=== PATIENT | female | born 1990 | race Hispanic/Latino ===

== ENCOUNTER 2017-10-03 00:23 | Emergency (ER) | payer BC, OTHER ==
--- OUTSIDE RECORDS SUMMARY | 2017-10-03 00:25 | XMS REPORT | Clinical Summary ---
:1990 Author Organization [facility] Address [address] [place] [id number] Care Team Providers Name Role Phone Elena Dan MD Primary Care Provider Allergies Active Allergy Reactions Severity Noted Date Comments No Known Drug Allergies 10/26/2015 Current Medications Prescription Sig. Disp. Refills Start Date End Date Status Take 1 tablet by Active nsshnuzz-Yw-[id number]-Fe-FA mouth daily. tablet pantoprazole (PROTONIX) TK 1 T PO D 0 09/17/2016 Active 40 MG EC tablet ondansetron (ZOFRAN) 4 MG TK 1 T PO Q 8 H PRN 0 09/17/2016 Active tablet NV Active Problems Problem Noted Date Gastroesophageal reflux disease without esophagitis 09/21/2016 Viral URI with cough 09/21/2016 H/O abnormal cervical Papanicolaou smear Encounters Date Type Specialty Care Team Description 11/20/2016 Telephone Internal Medicine Elena Dan MD 10/16/2016 Telephone Internal Medicine Elena Dan Encounter for insertion of intrauterine contraceptive device (Primary Dx); MD Paul Encounter for contraceptive management, unspecified contraceptive encounter type after 10/02/2016 Family History Medical History Relation Name Comments No Known Problems Father No Known Problems Mother Relation Name Status Comments Father Mother Social History Tobacco Use Types Packs/Day Years Used Date Never Smoker Smokeless Tobacco: Never Used Tobacco Cessation: Counseling Given: No Alcohol Use Drinks/Week oz/Week Comments Yes ocassional; 1 drink monthly or every other month Sex Assigned at Date Recorded Not on file Last Filed Vital Signs Not on file Plan of Treatment Health Maintenance Due Date Last Done Comments PAP SMEAR 2011 INFLUENZA VACCINE 01/15/2018 Results Not on fileafter 10/02/2016 Insurance Payer Benefit Plan / Group Subscriber ID Type Phone Address [facility] Home: [address] [place], [place] [phone] [place] [id number]
[2017-10-03 01:21] LABS: Urine Blood 1+ (NEG); Urine Glucose NEGATIVE (NEG); Urine Protein NEGATIVE (NEG)
[2017-10-03 01:27] LABS: Urine Bacteria <20 /HPF (<20); Urine Culture Reflex Order NOT NEEDED; Urine RBC <5 /HPF (NONE SEEN)
--- NOTE | 2017-10-03 02:17 | ER ---
Nurse's Notes [facility] Name: Ramiro Tracy Age: 27 yrs Sex: Female : 1990 Arrival Date: 10/03/2017 Time: 00:24 Bed 16 Private MD: out of town, doctor Diagnosis: Dysuria;Cystitis Presentation: 10/03 00:42 Presenting complaint: Patient states: that she is having burning and pain with fc urination that started Tu night.. Also headache since Saturday. Denies any nausea or vomiting. Transition of care: patient was not received from another setting of care. Onset of symptoms was September 29, 2017. Initial Sepsis Screen: Does the patient meet any 2 criteria? No. Patient's initial sepsis screen is negative. Does the patient have a suspected source of infection? No. Patient's initial sepsis screen is negative. Care prior to arrival: None. 00:42 Method Of Arrival: Ambulatory fc 00:42 Acuity: CASA 4 Triage Assessment: 00:46 General: Appears comfortable, Behavior is calm, cooperative, appropriate for age. Pain: Complains of pain in meatus Pain currently is 2 out of 10 on a pain scale. at worst was 5 out of 10 on a pain scale. Quality of pain is described as burning, Pain began 1 day ago. Is continuous, Aggravated by urinating. EENT: No deficits noted. Neuro: Level of Consciousness is awake, alert, obeys commands, Oriented to person, place, time, situation, Coding And Reimbursement Specialist are equal bilaterally Moves all extremities. Full function Gait is steady, Speech is normal, Facial symmetry appears normal, Reports headache frontal area. Cardiovascular: No deficits noted. Respiratory: No deficits noted. GI: No deficits noted. : Reports burning with urination, pain with urination, urinary frequency. Derm: Skin is pink, warm \T\ dry. Musculoskeletal: Circulation, motion, and sensation intact. Capillary refill < 3 seconds, Range of motion: intact in all extremities. 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 - Social history:: Smoking status: Patient/guardian denies using tobacco, Patient uses alcohol, occasionally. Screenin:46 Abuse screen: Denies threats or abuse. Nutritional screening: No deficits noted. Tuberculosis screening: No symptoms or risk factors identified. Fall Risk None identified. Assessment: 01:10 General: Appears in no apparent distress. Behavior is calm, cooperative. Pain: bb Complains of pain in suprapubic area. Neuro: Level of Consciousness is awake, alert, obeys commands, Oriented to person, place, time, situation. Cardiovascular: No deficits noted. Respiratory: Respiratory effort is even, unlabored. GI: Abdomen is obese, Reports lower abdominal pain. : Reports burning with urination. Derm: Skin is pink, warm \T\ dry. Musculoskeletal: Circulation, motion, and sensation intact. 02:37 Reassessment: Patient and/or family updated on plan of care and expected duration. Pain bb level reassessed. Patient is alert, oriented x 3, equal unlabored respirations, skin warm/dry/pink. pt verbalized understanding of and agrees to plan of care discharge instructions given pt ambulated with steady gait to exit accompanied by spouse. Vital Signs: 00:48 BP 136 / 91; Pulse 98; Resp 18; Temp 98.6(O); Pulse Ox 98% on R/A; Weight 82.55 kg (R); fc Height 5 ft. 0 in. (152.40 cm) (R); Pain 2/10; 02:38 BP 125 / 80; Pulse 72; Resp 16 S; Temp 98.5(O); Pulse Ox 98% on R/A; bb 00:48 Body Mass Index 35.54 (82.55 kg, 152.40 cm) ED Course: 00:24 Patient arrived in ED. ds1 00:24 out of town, doctor is Private Physician. ds1 00:45 Triage completed. 00:45 Arm band placed on Patient placed in an exam room, on a stretcher. 00:46 Patient has correct armband on for positive identification. Bed in low position. Call light in reach. 01:21 Neyda Salgado RN is Primary Nurse. bb 01:25 David Bashir MD is Attending Physician. gs 02:39 No provider procedures requiring assistance completed. Patient did not have IV access bb during this emergency room visit. Administered Medications: 02:37 Drug: Pyridium 200 mg Route: PO; teresa 02:37 Follow up: Response: Medication administered at discharge. teresa Outcome: 02:17 Discharge ordered by . irma 02:39 Discharged to home ambulatory, with family. teresa 02:39 Condition: stable 02:39 Discharge instructions given to patient, Instructed on discharge instructions, follow up and referral plans. medication usage, Demonstrated understanding of instructions, follow-up care, medications, Prescriptions given X 2. 02:39 Patient left the ED. bb Addendum: 10/11/2017 11:54 Addendum: Culture Results: Positive urine culture. Bacteria is resistant to, has i w intermediate sensitivity, or is not tested against prescribed antibiotics. Report given to LO for further evaluation and then to veterans services specialist for follow up with patient. Phone call Attempt #1 pt did not answer, left voice mail. 12:20 Addendum: Culture Results: Phone call Attempt #2 pt called back, asymptomatic for UTI i w symptoms. Signatures: Gin Figueredo RN RN fc Sanford, Demi ds1 Neyda Salgado RN RN Sabi Mohamud RN RN iw Starr, Gregory, MD MD gs
--- NOTE | 2017-10-03 02:17 | EDPHYS ---
Physician Documentation [facility] Name: Ramiro Tracy Age: 27 yrs Sex: Female : 1990 Arrival Date: 10/03/2017 Time: 00:24 Bed 16 Private MD: out of town, doctor ED Physician David Bashir HPI: 10/03 02:43 This 27 yrs old Female presents to ER via Ambulatory with complaints of Pain gs With Urination. 02:43 The patient presents with urinary symptoms, dysuria. Onset: The symptoms/episode gs began/occurred 2 day(s) ago, and became persistent. Modifying factors: The symptoms are alleviated by nothing, the symptoms are aggravated by nothing. Associated signs and symptoms: Pertinent negatives: fever, hematuria. Severity of symptoms: At their worst the symptoms were moderate, in the emergency department the symptoms are unchanged. The patient has not experienced similar symptoms in the past. 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 - Social history:: Smoking status: Patient/guardian denies using tobacco, Patient uses alcohol, occasionally. ROS: 02:43 : Negative for vaginal discharge. gs 02:43 All other systems are negative. Exam: 02:43 Head/Face: Normocephalic, atraumatic. Eyes: Pupils equal round and reactive to light, gs extra-ocular motions intact. Lids and lashes normal. Conjunctiva and sclera are non-icteric and not injected. Cornea within normal limits. Periorbital areas with no swelling, redness, or edema. ENT: Nares patent. No nasal discharge, no septal abnormalities noted. Tympanic membranes are normal and external auditory canals are clear. Oropharynx with no redness, swelling, or masses, exudates, or evidence of obstruction, uvula midline. Mucous membranes moist. Neck: Trachea midline, no thyromegaly or masses palpated, and no cervical lymphadenopathy. Supple, full range of motion without nuchal rigidity, or vertebral point tenderness. No Meningismus. Chest/axilla: Normal chest wall appearance and motion. Nontender with no deformity. No lesions are appreciated. Cardiovascular: Regular rate and rhythm with a normal S1 and S2. No gallops, murmurs, or rubs. Normal PMI, no JVD. No pulse deficits. Respiratory: Lungs have equal breath sounds bilaterally, clear to auscultation and percussion. No rales, rhonchi or wheezes noted. No increased work of breathing, no retractions or nasal flaring. Abdomen/GI: Soft, non-tender, with normal bowel sounds. No distension or tympany. No guarding or rebound. No evidence of tenderness throughout. Back: No spinal tenderness. No costovertebral tenderness. Full range of motion. Skin: Warm, dry with normal turgor. Normal color with no rashes, no lesions, and no evidence of cellulitis. MS/ Extremity: Pulses equal, no cyanosis. Neurovascular intact. Full, normal range of motion. Neuro: Awake and alert, GCS 15, oriented to person, place, time, and situation. Cranial nerves II-XII grossly intact. Motor strength 5/5 in all extremities. Sensory grossly intact. Cerebellar exam normal. Normal gait. 02:43 Constitutional: The patient appears alert, awake. Vital Signs: 00:48 BP 136 / 91; Pulse 98; Resp 18; Temp 98.6(O); Pulse Ox 98% on R/A; Weight 82.55 kg (R); fc Height 5 ft. 0 in. (152.40 cm) (R); Pain 2/10; 02:38 BP 125 / 80; Pulse 72; Resp 16 S; Temp 98.5(O); Pulse Ox 98% on R/A; bb 00:48 Body Mass Index 35.54 (82.55 kg, 152.40 cm) MDM: 02:10 Patient medically screened. 02:43 Differential diagnosis: urinary tract infection. Data reviewed: vital signs, nurses gs notes. 02:45 ED course: WILL TREAT FOR CYSTITIS AWAIT CULTURE PT IS SYMPTOMATIC + LE ON URINE DIP. 10/03 01:01 Order name: Urine Microscopic Only; Complete Time: 02:16 [facility] 10/03 01:01 Order name: Urine Dipstick--Ancillary (enter results); Complete Time: 01:25 [facility] 10/03 01:01 Order name: Urine --Ancillary (enter results); Complete Time: 01:25 rg2 10/03 01:02 Order name: Urine Culture rg Administered Medications: 02:37 Drug: Pyridium 200 mg Route: PO; teresa 02:37 Follow up: Response: Medication administered at discharge. teresa Disposition: 10/03/17 02:17 Discharged to Home. Impression: Dysuria, Cystitis. - Condition is Stable. - Discharge Instructions: Dysuria, Urinary Tract Infection. - Prescriptions for Macrobid 100 mg Oral Capsule - take 1 capsule by ORAL route every 12 hours for 5 days; 10 capsule. Pyridium 200 mg Oral Tablet - take 1 tablet by ORAL route every 8 hours for 2 days; 5 tablet. - Medication Reconciliation Form, Thank You Letter, Antibiotic Education, Prescription Opioid Use form. - Follow up: Private Physician; When: 1 - 2 days; Reason: Re-evaluation by your physician. Signatures: Dispatcher [employer] EDGin Garcia RN RN fc Ballard, Brenda, RN RN bb Starr, Gregory, MD MD
[2017-10-03] MEDS ORDERED: PHENAZOPYRIDINE 100MG TAB PO ONE (02:31)
== END 2017-10-03 02:39 | disposition home or self-care (01) ==
LOC: ER 00:23
DX: N30.90 Cystitis, unspecified without hematuria (principal)
CPT/HCPCS: 81003; 81015; 81025; 87077; 87086; 87088; 87186; 99283

== ENCOUNTER 2017-11-18 18:14 | Emergency (ER) | payer OTHER, BC ==
--- OUTSIDE RECORDS SUMMARY | 2017-11-18 18:16 | XMS REPORT | Clinical Summary ---
:1990 Author Organization [facility] Address [address] [place] [id number] Care Team Providers Name Role Phone Elena Dan MD Primary Care Provider Allergies Active Allergy Reactions Severity Noted Date Comments No Known Drug Allergies 10/26/2015 Current Medications Prescription Sig. Disp. Refills Start Date End Date Status Take 1 tablet by Active ovlnjsei-Ov-qde-Fe-FA mouth daily. tablet pantoprazole (PROTONIX) TK 1 [...] 11/20/2016 Telephone Internal Medicine Elena Dan MD after 11/17/2016 Family History Medical History Relation Name Comments [...] Health Maintenance Due Date Last Done Comments CERVICAL CANCER SCREENING 2011 INFLUENZA VACCINE 01/15/2018 Results Not on fileafter 11/17/2016 Insurance Payer Benefit Plan / Group Subscriber ID Type Phone Address [facility] [phone] [place], [place] [id number]
--- NOTE | 2017-11-18 21:15 | EDPHYS ---
Physician Documentation [facility] Name: Ramiro Tracy Age: 27 yrs Sex: Female : 1990 Arrival Date: 11/18/2017 Time: 18:17 Bed 28 Private MD: out of town, doctor ED Physician Aren Douglas HPI: 11/18 21:00 This 27 yrs old Female presents to ER via Ambulatory with complaints of Hand pm1 Swelling, Feet Swelling. 21:00 Onset: The symptoms/episode began/occurred 2 month(s) ago. Associated signs and pm1 symptoms: Pertinent negatives: cyanosis distally, decreased sensation distally, fever. The patient has not recently seen a physician. Patient with complaints of bilateral lower extremity swelling and hand swelling for the past 2 months. Swelling is worse with prolonged standing and eating salty foods. Patient without any current swelling to any extremities. No chest pain or shortness of breath. 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 - Social history:: Smoking status: Patient/guardian denies using tobacco. - Ebola Screening: : No symptoms or risks identified at this time. ROS: 21:00 Constitutional: Negative for fever, chills, and weight loss, Eyes: Negative for injury, pm1 pain, redness, and discharge, ENT: Negative for injury, pain, and discharge, Neck: Negative for injury, pain, and swelling, Cardiovascular: Negative for chest pain, palpitations, and edema, Respiratory: Negative for shortness of breath, cough, wheezing, and pleuritic chest pain, Abdomen/GI: Negative for abdominal pain, nausea, vomiting, diarrhea, and constipation, Back: Negative for injury and pain, : Negative for injury, bleeding, discharge, and swelling. 21:00 Skin: Negative for injury, rash, and discoloration, Neuro: Negative for headache, weakness, numbness, tingling, and seizure. 21:00 MS/extremity: Positive for swelling, of the right hand, left hand, right foot and left foot. Exam: 21:00 Constitutional: This is a well developed, well nourished patient who is awake, alert, pm1 and in no acute distress. Head/Face: Normocephalic, atraumatic. Eyes: Pupils equal round and reactive to light, extra-ocular motions intact. Lids and lashes normal. Conjunctiva and sclera are non-icteric and not injected. Cornea within normal limits. Periorbital areas with no swelling, redness, or edema. ENT: Nares patent. No nasal discharge, no septal abnormalities noted. Tympanic membranes are normal and external auditory canals are clear. Oropharynx with no redness, swelling, or masses, exudates, or evidence of obstruction, uvula midline. Mucous membranes moist. Neck: Trachea midline, no thyromegaly or masses palpated, and no cervical lymphadenopathy. Supple, full range of motion without nuchal rigidity, or vertebral point tenderness. No Meningismus. Chest/axilla: Normal chest wall appearance and motion. Nontender with no deformity. No lesions are appreciated. Cardiovascular: Regular rate and rhythm with a normal S1 and S2. No gallops, murmurs, or rubs. Normal PMI, no JVD. No pulse deficits. Respiratory: Lungs have equal breath sounds bilaterally, clear to auscultation and percussion. No rales, rhonchi or wheezes noted. No increased work of breathing, no retractions or nasal flaring. Abdomen/GI: Soft, non-tender, with normal bowel sounds. No distension or tympany. No guarding or rebound. No evidence of tenderness throughout. Back: No spinal tenderness. No costovertebral tenderness. Full range of motion. Skin: Warm, dry with normal turgor. Normal color with no rashes, no lesions, and no evidence of cellulitis. MS/ Extremity: Pulses equal, no cyanosis. Neurovascular intact. Full, normal range of motion. 21:00 Neuro: Orientation: is normal, Motor: is normal, moves all fours. Vital Signs: 18:56 BP 139 / 92; Pulse 87; Resp 18 S; Temp 98.9(TE); Pulse Ox 100% on R/A; Weight 84.37 kg aa5 (R); Height 5 ft. 0 in. (152.40 cm) (R); Pain 2/10; 21:34 BP 119 / 78; Pulse 90; Resp 18; Pulse Ox 100% ; tl3 18:56 Body Mass Index 36.33 (84.37 kg, 152.40 cm) aa5 MDM: 20:34 Patient medically screened. pm1 21:10 Differential diagnosis: DVT, PE, CHF, Dependent edema. pm1 21:13 Data reviewed: vital signs. Data interpreted: Pulse oximetry: on room air is 100 %. pm1 Interpretation: normal. Counseling: I had a detailed discussion with the patient and/or guardian regarding: the historical points, exam findings, and any diagnostic results supporting the discharge/admit diagnosis, the need for outpatient follow up, to return to the emergency department if symptoms worsen or persist or if there are any questions or concerns that arise at home. 11/18 20:58 Order name: Urine Dipstick--Ancillary (enter results) [facility] 11/18 20:58 Order name: Urine --Ancillary (enter results) [facility] 11/18 20:58 Order name: Urine Dipstick-Ancillary EDMS 11/18 20:58 Order name: Urine --Ancillary EDMS Administered Medications: No medications were administered Disposition: 11/19 06:30 Co-signature as Attending Physician, Aren Douglas MD I agree with the assessment and tw4 plan of care. Disposition: 11/18/17 21:14 Discharged to Home. Impression: Edema, unspecified - dependent. - Condition is Stable. - Discharge Instructions: Edema. - Medication Reconciliation Form, Thank You Letter form. - Follow up: Emergency Department; When: As needed; Reason: Worsening of condition. Follow up: Private Physician; When: 2 - 3 days; Reason: Recheck today's complaints, Continuance of care, Re-evaluation by your physician. - Problem is new. - Symptoms have improved. Signatures: Dispatcher [employer] EDMS Jordana Aquino, RN RN aa5 Daniel Ordonez, FILLING AND PACKING SUPERVISOR FILLING AND PACKING SUPERVISOR pm1 Aren Douglas MD MD tw4 Susie Walker RN RN tl3 Corrections: (The following items were deleted from the chart) 11/18 21:37 21:14 11/18/2017 21:14 Discharged to Home. Impression: Edema, unspecified - dependent. tl3 Condition is Stable. Forms are Medication Reconciliation Form, Thank You Letter, Antibiotic Education, Prescription Opioid Use. Follow up: Emergency Department; When: As needed; Reason: Worsening of condition. Follow up: Private Physician; When: 2 - 3 days; Reason: Recheck today's complaints, Continuance of care, Re-evaluation by your physician. Problem is new. Symptoms have improved. pm1
--- NOTE | 2017-11-18 21:15 | ER ---
Nurse's Notes [facility] Name: Ramiro Tracy Age: 27 yrs Sex: Female : 1990 Arrival Date: 11/18/2017 Time: 18:17 Bed 28 Private MD: out of town, doctor Diagnosis: Edema, unspecified-dependent Presentation: 11/18 18:54 Presenting complaint: Patient states: intermittent swelling to renetta hands and renetta lower aa5 extremities that began 2 months ago. Pt states "I do have a little bit of pain on my right calf and my left arm". Transition of care: patient was not received from another setting of care. Onset of symptoms was 2017. Risk Assessment: Do you want to hurt yourself or someone else? Patient reports no desire to harm self or others. Initial Sepsis Screen: Does the patient meet any 2 criteria? No. Patient's initial sepsis screen is negative. Does the patient have a suspected source of infection? No. Patient's initial sepsis screen is negative. Care prior to arrival: None. 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 - Social history:: Smoking status: Patient/guardian denies using tobacco. - Ebola Screening: : No symptoms or risks identified at this time. Screenin:49 Abuse screen: Denies threats or abuse. Nutritional screening: No deficits noted. tl3 Tuberculosis screening: No symptoms or risk factors identified. Fall Risk None identified. Assessment: 20:49 General: Appears in no apparent distress. comfortable, well groomed, well developed, tl3 well nourished, Behavior is calm, cooperative, appropriate for age, quiet. Pain: Denies pain. Neuro: Level of Consciousness is awake, alert, obeys commands, Oriented to person, place, time, situation, Appropriate for age. Cardiovascular: No deficits noted. Denies chest pain, fatigue, nausea, shortness of breath, Patient's skin is warm and dry. Respiratory: Airway is patent Respiratory effort is even, unlabored, Respiratory pattern is regular, symmetrical. GI: No deficits noted. No signs and/or symptoms were reported involving the gastrointestinal system. : No deficits noted. No signs and/or symptoms were reported regarding the genitourinary system. EENT: No deficits noted. No signs and/or symptoms were reported regarding the EENT system. Derm: No deficits noted. No signs and/or symptoms reported regarding the dermatologic system. Musculoskeletal: No deficits noted. No signs and/or symptoms reported regarding the musculoskeletal system. 20:52 General: pt reports left hand and foot swelling for the last 2 months, a "tiny" pain in tl3 the right calf and left arm, not pin pricks, not achy, just a "tiny" pain. Did have an episode of dizziness last night when quickly changing position from lying to standing . 21:34 Reassessment: Patient appears in no apparent distress at this time. No changes from tl3 previously documented assessment. Patient and/or family updated on plan of care and expected duration. Pain level reassessed. Patient is alert, oriented x 3, equal unlabored respirations, skin warm/dry/pink. Vital Signs: 18:56 BP 139 / 92; Pulse 87; Resp 18 S; Temp 98.9(TE); Pulse Ox 100% on R/A; Weight 84.37 kg aa5 (R); Height 5 ft. 0 in. (152.40 cm) (R); Pain 2/10; 21:34 BP 119 / 78; Pulse 90; Resp 18; Pulse Ox 100% ; tl3 18:56 Body Mass Index 36.33 (84.37 kg, 152.40 cm) aa5 ED Course: 18:17 Patient arrived in ED. mr 18:17 out of town, doctor is Private Physician. mr 18:56 Triage completed. aa5 18:56 Arm band placed on. aa5 20:33 Daniel Ordonez, MICHELE is PHCP. pm1 20:33 Aren Douglas MD is Attending Physician. pm1 20:45 Susie Walker, GABBY is Primary Nurse. tl3 20:49 Patient has correct armband on for positive identification. Bed in low position. Call tl3 light in reach. Side rails up X 1. 20:49 No provider procedures requiring assistance completed. tl3 21:00 Urine --Ancillary (enter results) Sent. tl3 21:01 Urine Dipstick--Ancillary (enter results) Sent. tl3 21:34 Patient did not have IV access during this emergency room visit. tl3 Administered Medications: No medications were administered Outcome: 21:14 Discharge ordered by . pm1 21:34 Discharged to home ambulatory. tl3 21:34 Condition: good 21:34 Discharge instructions given to patient, Instructed on discharge instructions, Demonstrated understanding of instructions. 21:37 Patient left the ED. tl3 Signatures: Lyla Pinto Audri, RN RN aa5 Daniel Ordonez, MICHELE PROGRAM MEDICAL DIRECTOR pm1 Susie Walker, GABBY RN tl3
[2017-11-18 22:59] LABS: Urine Blood NEGATIVE (NEG); Urine Glucose NEGATIVE (NEG); Urine Protein NEGATIVE (NEG); Urine Specific Gravity 1.025 (1.005-1.030)
== END 2017-11-18 21:37 | disposition home or self-care (01) ==
LOC: ER 18:14
DX: R60.9 Edema, unspecified (principal)
CPT/HCPCS: 81003; 81025; 99283

== ENCOUNTER 2019-04-20 09:55 | Emergency (ER) | payer BC, OTHER ==
[2019-04-20 12:23] LABS: Urine Specific Gravity >1.030 (1.005-1.030)
[2019-04-20 12:24] LABS: Urine Blood NEGATIVE (NEG); Urine Glucose NEGATIVE (NEG); Urine Protein TRACE (NEG); Urine Specific Gravity >1.030 (1.005-1.030); Urine pH 5.5 (5.0-7.0)
--- NOTE | 2019-04-20 13:07 | RAD REPORT ---
EXAM DESCRIPTION: RAD - Chest Single View - 04/20/2019 1:02 pm CLINICAL HISTORY: COUGH Chest pain. COMPARISON: No comparisons FINDINGS: Portable technique limits examination quality. The lungs are grossly clear. The heart is normal in size. No displaced fractures. IMPRESSION: No acute intrathoracic process suspected.
[2019-04-20 13:28] LABS: Absolute Lymphocytes (CBC) 1.8 K/uL (0.7-4.9); Basophils % 0.7 % (0-1.3); Hematocrit 41.5 % (36.0-45.0); Lymphocytes % 24.4 % (15.3-44.8); MPV 8.9 fL (7.6-11.3); RBC Red Blood Cell Count 4.18 M/uL (3.86-4.86)
[2019-04-20 13:50] LABS: Albumin 3.9 g/dL (3.4-5.0); Bilirubin Direct 0.1 mg/dL (0-0.2); Bilirubin Total 0.6 mg/dL (0.2-1.0); Protein, Total 8.5 g/dL (6.4-8.2)
--- NOTE | 2019-04-20 14:04 | RAD REPORT ---
EXAM DESCRIPTION: US - Abdomen Exam Limited - 04/20/2019 1:50 pm CLINICAL HISTORY: ABD PAIN COMPARISON: No comparisons FINDINGS: The gallbladder demonstrates 2 shadowing gallstones. No pericholecystic fluid or gallbladd er wall thickening. The common bile duct is normal measuring 4 mm. The liver demonstrates no findings of intrahepatic biliary dilatation. IMPRESSION: Cholelithiasis.
--- NOTE | 2019-04-20 14:11 | ER ---
Nurse's Notes [facility] Name: Ramiro Tracy Age: 28 yrs Sex: Female : 1990 Arrival Date: 04/20/2019 Time: 09:59 Bed 15 Private MD: out of town, doctor Diagnosis: Functional dyspepsia;Cholelithiasis Presentation: 04/20 10:03 Presenting complaint: Patient states: R flank/ chest wall pain that began 2.5 days ago. ss No known injury. Patient describes pain as a soreness and his worse when bending over or repositioning. Transition of care: patient was not received from another setting of care. Onset of symptoms was April 17, 2019. Risk Assessment: Do you want to hurt yourself or someone else? Patient reports no desire to harm self or others. Initial Sepsis Screen: Does the patient meet any 2 criteria? No. Patient's initial sepsis screen is negative. Does the patient have a suspected source of infection? No. Patient's initial sepsis screen is negative. Care prior to arrival: None. 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 - Social history:: Smoking status: Patient/guardian denies using tobacco. - Ebola Screening: : Patient denies exposure to infectious person Patient denies travel to an Ebola-affected area in the 21 days before illness onset. - Family history:: not pertinent. Screenin:06 Abuse screen: Denies threats or abuse. Denies injuries from another. Nutritional ph screening: No deficits noted. Tuberculosis screening: No symptoms or risk factors identified. Fall Risk None identified. Assessment: 12:02 General: Appears in no apparent distress. comfortable, well groomed, Behavior is calm, ph cooperative, appropriate for age, Denies fever, feeling ill. Pain: Complains of pain in right lateral anterior chest, " under rib area" Pain radiates to right mid back. Neuro: Level of Consciousness is awake, alert, obeys commands, Oriented to person, place, time, situation. Cardiovascular: Capillary refill < 3 seconds in bilateral fingers Patient's skin is warm and dry. Respiratory: Airway is patent Respiratory effort is even, unlabored, Respiratory pattern is regular, symmetrical. GI: Abdomen is flat, non-distended, Bowel sounds present X 4 quads. Abd is soft X 4 quads Reports upper abdominal pain, Patient currently denies diarrhea, nausea, vomiting. : Denies burning with urination, urinary frequency. Derm: Skin is intact, is healthy with good turgor, Skin is pink, warm \\T\\ dry. Musculoskeletal: Circulation, motion, and sensation intact. Range of motion: intact in all extremities. 13:30 Reassessment: Patient appears in no apparent distress at this time. Patient and/or ph family updated on plan of care and expected duration. Pain level reassessed. Patient is alert, oriented x 3, equal unlabored respirations, skin warm/dry/pink. 15:04 Reassessment: Patient appears in no apparent distress at this time. Patient and/or ph family updated on plan of care and expected duration. Pain level reassessed. Patient is alert, oriented x 3, equal unlabored respirations, skin warm/dry/pink. Pt instructed to follow up w/ surgeon and d/c home. Vital Signs: 10:05 BP 135 / 85; Pulse 85; Resp 14; Temp 98.3(TE); Pulse Ox 100% on R/A; Weight 83.91 kg; Height 5 ft. 0 in. (152.40 cm); Pain 5/10; 13:00 BP 113 / 83; Pulse 77; Resp 16; Pulse Ox 100% on R/A; ph 14:00 BP 114 / 75; Pulse 84; Resp 16; Pulse Ox 100% on R/A; ph 15:08 BP 121 / 93; Pulse 81; Resp 18; Temp 97.8; Pulse Ox 99% ; ph 10:05 Body Mass Index 36.13 (83.91 kg, 152.40 cm) ED Course: 09:59 Patient arrived in ED. mr 09:59 out of town, doctor is Private Physician. mr 10:05 Triage completed. 10:05 Arm band placed on right wrist. 11:35 Cain Muniz MD is Attending Physician. [facility] 11:36 Carey, Minnie, RN is Primary Nurse. ph 12:06 Patient has correct armband on for positive identification. Bed in low position. Call ph light in reach. Side rails up X 1. Pulse ox on. NIBP on. 12:15 No provider procedures requiring assistance completed. Inserted saline lock: 20 gauge ph in right antecubital area, using aseptic technique. 13:02 Chest Single View XRAY In Process Unspecified. EDMS 14:02 US Abdomen Limited In Process Unspecified. EDMS 14:11 Francisco Stratton MD is Referral Physician. devora 15:06 IV discontinued, intact, bleeding controlled, No redness/swelling at site. Pressure ph dressing applied. Administered Medications: 13:18 Drug: NS 0.9% 1000 ml Route: IV; Rate: 1 bolus; Site: right antecubital; ph 15:07 Follow up: Response: No adverse reaction; IV Status: Completed infusion ph Outcome: 14:11 Discharge ordered by . devora 15:06 Discharged to home ambulatory. ph 15:06 Condition: good 15:06 Discharge instructions given to patient, Instructed on discharge instructions, follow up and referral plans. medication usage, Demonstrated understanding of instructions, follow-up care, medications, Prescriptions given X 3. 15:11 Patient left the ED. ph Signatures: Dispatcher [employer] Cain Garcia MD MD cha Rivera, Mary mr Smirch, Shelby, GABBY RN Minnie Hankins RN RN
--- NOTE | 2019-04-20 14:12 | EDPHYS ---
Physician Documentation [facility] Name: Ramiro Tracy Age: 28 yrs Sex: Female : 1990 Arrival Date: 04/20/2019 Time: 09:59 Bed 15 Private MD: out of town, doctor ED Physician Cain Muniz HPI: 04/20 12:25 This 28 yrs old Female presents to ER via Ambulatory with complaints of devora Abdominal Pain. 12:25 The patient or guardian reports chest pain that is located primarily in the epigastric devora area, anterior chest wall, right. The patient presents with abdominal pain in the upper abdomen, in the right upper quadrant. Onset: The symptoms/episode began/occurred 2 day(s) ago. The symptoms do not radiate. Modifying factors: The symptoms are alleviated by nothing, the symptoms are aggravated by nothing. 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 - Social history:: Smoking status: Patient/guardian denies using tobacco. - Ebola Screening: : Patient denies exposure to infectious person Patient denies travel to an Ebola-affected area in the 21 days before illness onset. - Family history:: not pertinent. ROS: 12:25 Constitutional: Negative for fever, chills, and weight loss, Eyes: Negative for injury, devora pain, redness, and discharge, ENT: Negative for injury, pain, and discharge, Neck: Negative for injury, pain, and swelling, Cardiovascular: Negative for chest pain, palpitations, and edema, Respiratory: Negative for shortness of breath, cough, wheezing, and pleuritic chest pain, Back: Negative for injury and pain, : Negative for injury, bleeding, discharge, and swelling, MS/Extremity: Negative for injury and deformity, Skin: Negative for injury, rash, and discoloration, Neuro: Negative for headache, weakness, numbness, tingling, and seizure, Psych: Negative for depression, anxiety, suicide ideation, homicidal ideation, and hallucinations, Allergy/Immunology: Negative for hives, rash, and allergies, Endocrine: Negative for neck swelling, polydipsia, polyuria, polyphagia, and marked weight changes, Hematologic/Lymphatic: Negative for swollen nodes, abnormal bleeding, and unusual bruising. 12:25 Abdomen/GI: Positive for abdominal pain, of the posterior aspect of right lateral abdomen, anterior aspect of right lateral abdomen and right upper quadrant. Exam: 12:25 Constitutional: This is a well developed, well nourished patient who is awake, alert, devora and in no acute distress. Head/Face: Normocephalic, atraumatic. Eyes: Pupils equal round and reactive to light, extra-ocular motions intact. Lids and lashes normal. Conjunctiva and sclera are non-icteric and not injected. Cornea within normal limits. Periorbital areas with no swelling, redness, or edema. ENT: Nares patent. No nasal discharge, no septal abnormalities noted. Tympanic membranes are normal and external auditory canals are clear. Oropharynx with no redness, swelling, or masses, exudates, or evidence of obstruction, uvula midline. Mucous membranes moist. Neck: Trachea midline, no thyromegaly or masses palpated, and no cervical lymphadenopathy. Supple, full range of motion without nuchal rigidity, or vertebral point tenderness. No Meningismus. Chest/axilla: Normal chest wall appearance and motion. Nontender with no deformity. No lesions are appreciated. Cardiovascular: Regular rate and rhythm with a normal S1 and S2. No gallops, murmurs, or rubs. Normal PMI, no JVD. No pulse deficits. Respiratory: Lungs have equal breath sounds bilaterally, clear to auscultation and percussion. No rales, rhonchi or wheezes noted. No increased work of breathing, no retractions or nasal flaring. Abdomen/GI: Soft, non-tender, with normal bowel sounds. No distension or tympany. No guarding or rebound. No evidence of tenderness throughout. Back: No spinal tenderness. No costovertebral tenderness. Full range of motion. Skin: Warm, dry with normal turgor. Normal color with no rashes, no lesions, and no evidence of cellulitis. MS/ Extremity: Pulses equal, no cyanosis. Neurovascular intact. Full, normal range of motion. Neuro: Awake and alert, GCS 15, oriented to person, place, time, and situation. Cranial nerves II-XII grossly intact. Motor strength 5/5 in all extremities. Sensory grossly intact. Cerebellar exam normal. Normal gait. Psych: Awake, alert, with orientation to person, place and time. Behavior, mood, and affect are within normal limits. Vital Signs: 10:05 BP 135 / 85; Pulse 85; Resp 14; Temp 98.3(TE); Pulse Ox 100% on R/A; Weight 83.91 kg; ss Height 5 ft. 0 in. (152.40 cm); Pain 5/10; 13:00 BP 113 / 83; Pulse 77; Resp 16; Pulse Ox 100% on R/A; ph 14:00 BP 114 / 75; Pulse 84; Resp 16; Pulse Ox 100% on R/A; ph 15:08 BP 121 / 93; Pulse 81; Resp 18; Temp 97.8; Pulse Ox 99% ; ph 10:05 Body Mass Index 36.13 (83.91 kg, 152.40 cm) ss MDM: 11:35 Patient medically screened. [facility] 12:31 Data reviewed: vital signs, nurses notes, lab test result(s), EKG, radiologic studies, [facility] plain films. 04/20 12:07 Order name: Urine Dipstick--Ancillary (enter results); Complete Time: 12:25 04/20 12:08 Order name: Urine --Ancillary (enter results); Complete Time: 12:25 04/20 12:25 Order name: Basic Metabolic Panel; Complete Time: 14:10 [facility] 04/20 12:25 Order name: CBC with Diff; Complete Time: 14:10 [facility] 04/20 12:25 Order name: Creatinine for Radiology; Complete Time: 14:10 [facility] 04/20 12:25 Order name: Hepatic Function; Complete Time: 14:10 [facility] 04/20 12:25 Order name: Lipase; Complete Time: 14:10 [facility] 04/20 12:25 Order name: IV Saline Lock; Complete Time: 13:18 [facility] 04/20 12:25 Order name: Labs collected and sent; Complete Time: 13:19 [facility] 04/20 12:25 Order name: Chest Single View XRAY; Complete Time: 13:24 [facility] 04/20 12:25 Order name: D-Dimer; Complete Time: 14:10 [facility] 04/20 13:26 Order name: US Abdomen Limited [facility] Administered Medications: 13:18 Drug: NS 0.9% 1000 ml Route: IV; Rate: 1 bolus; Site: right antecubital; ph 15:07 Follow up: Response: No adverse reaction; IV Status: Completed infusion ph Disposition: 04/20/19 14:11 Discharged to Home. Impression: Functional dyspepsia, Cholelithiasis. - Condition is Stable. - Discharge Instructions: Indigestion, Cholelithiasis, Indigestion, [id number]. - Prescriptions for Bentyl 20 mg Oral Tablet - take 1 tablet by ORAL route every 6 hours As needed; 20 tablet. Pepcid 20 mg Oral Tablet - take 1 tablet by ORAL route every 12 hours for 10 days; 20 tablet. Zofran 4 mg Oral Tablet - take 1 tablet by ORAL route every 12 hours As needed; 20 tablet. - Medication Reconciliation Form, Thank You Letter, Antibiotic Education, Prescription Opioid Use form. - Follow up: Private Physician; When: 2 - 3 days; Reason: Recheck today's complaints, Continuance of care, Re-evaluation by your physician. Follow up: Francisco Stratton MD; When: 2 - 3 days; Reason: Recheck today's complaints, Re-evaluation by your physician. - Problem is new. - Symptoms have improved. Signatures: Dispatcher [employer] EDMS Cain Muniz MD MD cha Smirch, Shelby, RN RN Minnie Carey RN RN ph Corrections: (The following items were deleted from the chart) 14:11 14:11 04/20/2019 14:11 Discharged to Home. Impression: Functional dyspepsia; devora Cholelithiasis. Condition is Stable. Discharge Instructions: Indigestion, Indigestion, [id number]. Prescriptions for Bentyl 20 mg Oral Tablet - take 1 tablet by ORAL route every 6 hours As needed; 20 tablet, Pepcid 20 mg Oral Tablet - take 1 tablet by ORAL route every 12 hours for 10 days; 20 tablet, Zofran 4 mg Oral Tablet - take 1 tablet by ORAL route every 12 hours As needed; 20 tablet. and Forms are Medication Reconciliation Form, Thank You Letter, Antibiotic Education, Prescription Opioid Use. Follow up: Private Physician; When: 2 - 3 days; Reason: Recheck today's complaints, Continuance of care, Re-evaluation by your physician. Problem is new. Symptoms have improved. devora 15:11 14:11 04/20/2019 14:11 Discharged to Home. Impression: Functional dyspepsia; ph Cholelithiasis. Condition is Stable. Discharge Instructions: Indigestion, Indigestion, [id number]. Prescriptions for Bentyl 20 mg Oral Tablet - take 1 tablet by ORAL route every 6 hours As needed; 20 tablet, Pepcid 20 mg Oral Tablet - take 1 tablet by ORAL route every 12 hours for 10 days; 20 tablet, Zofran 4 mg Oral Tablet - take 1 tablet by ORAL route every 12 hours As needed; 20 tablet. and Forms are Medication Reconciliation Form, Thank You Letter, Antibiotic Education, Prescription Opioid Use. Follow up: Private Physician; When: 2 - 3 days; Reason: Recheck today's complaints, Continuance of care, Re-evaluation by your physician. Follow up: Francisco Stratton; When: 2 - 3 days; Reason: Recheck today's complaints, Re-evaluation by your physician. Problem is new. Symptoms have improved. [facility]
[2019-04-20 15:36] VITALS: BP 121/93; TEMP 97.8; O2SAT 99
== END 2019-04-20 15:11 | disposition home or self-care (01) ==
LOC: ER 09:55
DX: K80.20 Calculus of gallbladder without cholecystitis without obstruction (principal); K30 Functional dyspepsia
CPT/HCPCS: 36415; 71045; 76705; 80048; 80076; 81003; 81025; 83690; 85025; 85379; 96360; 96361; 99284

== ENCOUNTER 2019-05-22 08:25 | Day surgery (SDC) | payer BC, OTHER ==
[2019-05-22] MEDS ORDERED: BUPIVACA 0.5%/EPI 0.0005%/PF 30 ML VIAL ONE (08:35)
[2019-05-22] MEDS ORDERED: GLYCOPYRROLATE 0.2 MG/ML SYR ONE ×2 (08:52)
[2019-05-22] MEDS ORDERED: MIDAZOLAM HCL 2 MG/2 ML INJ ONE (08:52)
[2019-05-22] MEDS ORDERED: propofoL 200 MG/20 ML VIAL IV ONE (08:52)
[2019-05-22] MEDS ORDERED: LIDOCAINE 2% MPF 5 ML VIAL ONE (08:53)
[2019-05-22] MEDS ORDERED: FENTANYL CITR 250 MCG/5 ML ONE (08:53)
[2019-05-22] MEDS ORDERED: Ringers Lactate 1,000 ML IV ONE (08:54)
[2019-05-22 08:56] LABS: Specific Gravity 1.015 (1.005-1.030)
[2019-05-22] MEDS ORDERED: ROCURONIUM 50 MG/5 ML VIAL IV ONE (08:59)
[2019-05-22] MEDS ORDERED: NEOSTIGMINE 1 MG/ML -10 ML VIAL ONE (08:59)
[2019-05-22] MEDS ORDERED: ONDANSETRON 4 MG/2 ML VIAL ONE ×2 (08:59→11:48)
[2019-05-22] MEDS ORDERED: LIDOCAINE JELLY 2%- 5 ML TUBE ONE (08:59)
[2019-05-22] MEDS ORDERED: CEFAZOLIN SODIUM 1 GM/VIAL ONE (09:47)
--- NOTE | 2019-05-22 10:37 | P.OP ---
Preoperative diagnosis: Chronic Cholecystitis Postoperative diagnosis: Chronic Cholecystitis Primary procedure: Laparoscopic Cholecystectomy Anesthesia: GETA + Local Estimated blood loss: <5cc Specimen: Gallbladder Findings: Chronic Cholecystitis Complications: None Transferred to: Recovery Room Condition: Good
[2019-05-22] MEDS: HYDROMORPHONE HCL 1 MG/ML INJ ONE ×3 (11:12→11:17)
[2019-05-22] MEDS ORDERED: ONDANSETRON 4 MG/2 ML VIAL IV ONE (11:50)
[2019-05-22 12:27] VITALS: TEMP 97; O2SAT 96
[2019-05-22] MEDS ORDERED: HYDROCODONE/APAP 5/325 MG TAB PO ONE (12:39)
[2019-05-22] MEDS ORDERED: HYDROCODONE/APAP 5/325 MG TAB ONE (12:39)
[2019-05-22 13:49] VITALS: BP 128/80
--- NOTE | 2019-05-22 21:47 | OP ---
Date of Procedure: 05/22/2019 Surgeon: Francisco Stratton MD, Preoperative Diagnosis: Chronic cholecystitis. Postoperative Diagnosis: Chronic cholecystitis. Procedure Performed: Laparoscopic cholecystectomy. Anesthesia: General endotracheal plus local with 0.5% Marcaine with epinephrine. Estimated Blood Loss: Less than 5 mL. Specimen: Gallbladder. Findings: Consistent with chronic cholecystitis. Complications: None. Disposition: Transferred to the recovery room in good condition. Procedure In Detail: After informed was obtained, the patient was brought to the operating room, pre pped and draped in the usual sterile fashion. After adequate anesthesia was achieved, a supraumbilic al area was anesthetized with 0.25% Marcaine, sharply incised and a 5-mm trocar was introduced into t he abdomen without evidence of complication. Insufflation was obtained at 15 mmHg at this time. The re was no injury to vital structures upon entering the abdomen. The patient was positioned head up r ight-side up position. Two additional trocars were placed both in the right upper quadrant and the e pigastrium. This was similarly anesthetized and sharply incised. A 5-mm trocar was introduced into the abdomen without evidence of complication. The umbilical trocar was then up-sized to 12 mm under direct visualization without evidence of complication. Ratcheted grasper was used to grasp the patie nt's gallbladder, placed towards the patient's right shoulder and dissection continued down on the ga llbladder to expose the cystic duct and cystic artery. The critical view of safety was obtained at t his time. After this was completely cleared using a [place] retractor and gentle dissection using b oth electrocautery as well as a gentle blunt dissection, a clip plastic panel installer was used to apply double clip s on the proximal side and singly on the distal side of both cystic duct and cystic artery after veri fying the critical view of safety. The Endo Jaden were then used to ligate the 2 above structures. The gallbladder was removed from the hepatic fossa without evidence of complication. No additional hemostatic maneuvers were required. The gallbladder placed in EndoCatch bag, removed through the umb ilical trocar, sent off for pathologic examination. The area was copiously irrigated multiple times until completely clear. The patient is positioned in the neutral position. The umbilical trocar was then removed. The umbilical trocar site was closed using a Alexander-Aldo suture passer with 0 Willard ryl interrupted fashion. Good approximation of tissues. The area was inspected one last time for he mostasis. No additional hemostatic maneuvers were required and the clips were found to be in good an atomic position. The area was then desufflated under direct visualization without evidence of compli cation. All trocars were removed. All trocar sites were irrigated and dried and then closed with a 4-0 Monocryl in a running fashion, Dermabond placed over the top. The patient tolerated the procedur e without evidence of complication and transferred to PACU in good condition. All counts were correc t at the end of the case. ANGELINE/GAIL Voice ID: [id number] Report ID: [id number]
== END 2019-05-22 13:26 | disposition home or self-care (01) ==
LOC: OR 08:25
PROVIDERS: ATTEND Surgery
PROC: 0FT44ZZ Resection of Gallbladder, Percutaneous Endoscopic Approach (ICD-10-PCS; principal; 2019-05-22 09:30)
DX: K80.10 Calculus of gallbladder with chronic cholecystitis without obstruction (principal)
CPT/HCPCS: 81025; 88304; 47562; J2704; J2710; J2250; J3010; J1170; J7120; J2405 ×3; J0690

== ENCOUNTER 2021-06-08 06:21 | Emergency (ER) | payer BC, OTHER ==
--- OUTSIDE RECORDS SUMMARY | 2021-06-08 06:24 | XMS REPORT | Continuity of Care Document ---
:1990 Author Organization [facility] t Address [address] [place] [address] Care Team Providers Name Role Phone Susan Baldwin DO Attending Clinician Susan BALDWIN Attending Clinician Unavailable Payers Payer Name Policy Type Policy Number Effective Date Expiration Date [employer] [id number] 2016 00:00:00 Problems Condition Condition Condition Status Onset Resolution Last Treating Co mments Source Name Details Category Date Date Treatment Clinician Date No known No known Disease Unive rs active active ity of problems problems [facility] Allergies, Adverse Reactions, Alerts Allergy Allergy Status Severity Reaction(s) Onset Inactive Treating Comm ents Source Name Type Date Date Clinician NO KNOWN Drug Active Univers ALLERGIE Class ity of S [facility] Social History Social Habit Start Date Stop Date Quantity Comments Source Sex [facility] Exposure to SARS-CoV-2 Not sure [facility] [place] [facility] Smoking Status Start Date Stop Date Source Unknown if ever smoked [facility] Medications Ordered Filled Start Stop Current Ordering Indication Dosage Frequency Signature Comments Components Source Medication Medication Date Date Medication? Clinician (SIG) Name Name diphenhydrA 2019- 2020- No 50mg 50 mg, Uni vers MINE 5-25 05-24 Oral, ity of (BENADRYL) 00:30: 23:30 ONCE, 1 [place] as tablet 50 00 :00 dose, Sun Medic al mg 11/08/19 at [place] 193, JAROD predniSONE 2020-0 2020- No [id number] 50mg Take 5 Univers 10 mg 5-25 05-30 tablets by ity of tablet 00:00: 04:59 mouth [place] 00 :00 daily for Medical 4 days. [place] famotidine 2019- 2020- No 20mg 20 mg, Univ ers (PEPCID AC) 11-07 Oral, ity of tablet 20 23:45: 22:43 [place]CE, [place]00 dose, [facility] 11/08/19 at [place] 1845, JAROD cetirizine No 10mg 10 mg, [facility] (ZYRTEC) 11-07 Oral, ity of tablet 10 23:45: 22:43 ONCE, [place] mg 00 :00 dose, [facility] 11/08/19 at [place] 1845, Routine predniSONE 2019- No 50mg 50 mg, [facility] (DELTASONE) 11-07 Oral, ity of tablet 50 23:45: 22:44 ONCE, [place] mg [place] :00 dose, [facility] 11/08/19 at [place] 1845, JAROD pantoprazol Yes 40mg Take 1 [facility] ers e 4-03 tablet by ity of (PROTONIX) 00:00: mouth [place] 40 mg EC 00 daily. Medical tablet [place] ondansetron Yes 4mg Take 1 [facility] (ZOFRAN, 4-03 tablet by ity of HYDROCHLORI 00:00: mouth [place] DE,) 4 mg 00 every 8 Medical tablet (eight) [place] hours as needed for Nausea and Vomiting (N/V). Vital Signs Vital Name Observation Time Observation Value Comments Source Systolic blood 2019-11-08 23:00:00 116 mm[Hg[facility] Diastolic blood 2019-11-08 23:00:00 86 mm[Hg] [facility] rate 2019-11-08 23:00:00 80 /min [facility] Respiratory rate 2019-11-08 23:00:00 16 /min [facility] Oxygen saturation in 2019-11-08 23:00:00 95 /min [facility] Arterial blood by [facility] Pulse oximetry [place] Body temperature 2019-11-08 22:31:00 37.28 Mariza [facility] Body height 2019-11-08 22:31:00 152.4 cm [facility] Body weight 2019-11-08 22:31:00 81.647 kg [facility] BMI 2019-11-08 22:31:00 35.15 kg/m2 [facility] Procedures Procedure Date / Time Performed Performing Clinician Sourc e NOTICE OF PRIVACY 2019-11-08 22:24:04 Doctor Unassigned, No Univ [facility] PRACTICES Name Medical Branch Encounters Start End Encounter Admission Attending Care Care Encounter Source Date/Time Date/Time Type Type Clinicians Facility Department ID 2020-02-23 2020-02-23 Outpatient [facility] [id number] [place] 00:00:00 00:00:[address] 2019-11-08 2019-11-08 Emergency KLARISSA Baldwin [id number] Univers 17:27:06 18:36:00 Loly Michel [id number] rob [facility] [id number] [facility] [id number] [facility] [address] 2019-11-08 2019-11-08 Emergency X KLARISSA BALDWIN ERT [id number] Univers 17:27:06 17:27:06 LOLY rivas [facility] Results This patient has no known results.
--- NOTE | 2021-06-08 06:51 | ER ---
Nurse's Notes [facility] Name: Ramiro Tracy Age: 31 yrs Sex: Female : 1990 Arrival Date: 06/08/2021 Time: 06:26 Bed 20 Private MD: Diagnosis: Acute suppurative otitis media;Acute laryngopharyngitis Presentation: 06/08 06:37 Chief complaint: Patient states: Sore throat x 4 days, fever of 100, congestion; left lp1 ear pain this AM. Coronavirus screen: congestion, fever, sore throat. Ebola Screen: No symptoms or risks identified at this time. Risk Assessment: Do you want to hurt yourself or someone else? Patient reports no desire to harm self or others. Onset of symptoms was June 08, 2021. 06:37 Method Of Arrival: Ambulatory lp1 06:37 Acuity: CASA 4 lp1 06:46 Initial Sepsis Screen: Does the patient meet any 2 criteria? No. Patient's initial kd3 sepsis screen is negative. Does the patient have a suspected source of infection? No. Patient's initial sepsis screen is negative. Triage Assessment: 06:45 General: Appears in no apparent distress. Behavior is calm, cooperative, appropriate kd3 for age. 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 - Social history:: Smoking status: Patient denies any tobacco usage or history of. Screenin:38 Abuse screen: Denies threats or abuse. Denies injuries from another. Nutritional lp1 screening: No deficits noted. Tuberculosis screening: No symptoms or risk factors identified. Fall Risk None identified. Assessment: 06:43 Pain: Complains of pain in left ear. Neuro: No deficits noted. Level of Consciousness kd3 is awake, alert, obeys commands, Oriented to person, place, time, situation. Cardiovascular: No deficits noted. Respiratory: Airway is patent Respiratory effort is even, unlabored, Breath sounds are clear bilaterally. GI: No deficits noted. : No deficits noted. EENT: Throat is reddened. Derm: No deficits noted. Vital Signs: 06:42 BP 121 / 90; Pulse 112; Resp 18; Temp 98.9; Pulse Ox 100% on R/A; kd3 ED Course: 06:26 Patient arrived in ED. ja2 06:32 Rui Álvarez PA is PHCP. jr8 06:32 Sagar Painting MD is Attending Physician. jr8 06:33 Ruthie Rojo, RN is Primary Nurse. kd3 06:37 Triage completed. lp1 06:37 Arm band placed on. lp1 06:38 Patient has correct armband on for positive identification. lp1 06:58 No provider procedures requiring assistance completed. Patient did not have IV access kd3 during this emergency room visit. Administered Medications: No medications were administered Outcome: 06:50 Discharge ordered by . jr8 06:58 Discharged to home ambulatory. kd3 06:58 Condition: stable 06:58 Discharge instructions given to patient, Instructed on discharge instructions, follow up and referral plans. medication usage, Demonstrated understanding of instructions, follow-up care, medications, Prescriptions given X 1. 06:59 Patient left the ED. kd3 Signatures: Yi Paige, RN RN lp1 Rui Álvarez PA PA jr8 Talisha Wilson 2 Ruthie Rojo, RN RN kd3
--- NOTE | 2021-06-08 06:59 | EDPHYS ---
Physician Documentation [facility] Name: Ramiro Tracy Age: 31 yrs Sex: Female : 1990 Arrival Date: 06/08/2021 Time: 06:26 Bed 20 Private MD: ED Physician Sagar Painting HPI: 06/08 06:54 This 31 yrs old Female presents to ER via Ambulatory with complaints of Fever, jr8 Sore Throat, Ear Pain, Congestion. 06:54 This is a 31-year-old female that presented to the emergency room with complaints of jr8 sore throat, ear pain, cough and congestion. Stated that the ear pain started today. Son has had a recent viral illness that had also caused an earache.. 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 - Social history:: Smoking status: Patient denies any tobacco usage or history of. ROS: 06:54 Neck: Negative for injury, pain, and swelling, Cardiovascular: Negative for chest pain, jr8 palpitations, and edema, Abdomen/GI: Negative for abdominal pain, nausea, vomiting, diarrhea, and constipation, Back: Negative for injury and pain, MS/Extremity: Negative for injury and deformity, Skin: Negative for injury, rash, and discoloration, Neuro: Negative for headache, weakness, numbness, tingling, and seizure. 06:54 Constitutional: Positive for fever. 06:54 ENT: Positive for ear pain, sore throat. 06:54 Respiratory: Positive for cough, Negative for shortness of breath, sputum production, wheezing. Exam: 06:54 Eyes: Pupils equal round and reactive to light, extra-ocular motions intact. Lids and jr8 lashes normal. Conjunctiva and sclera are non-icteric and not injected. Cornea within normal limits. Periorbital areas with no swelling, redness, or edema. Neck: Trachea midline, no thyromegaly or masses palpated, and no cervical lymphadenopathy. Supple, full range of motion without nuchal rigidity, or vertebral point tenderness. No Meningismus. Cardiovascular: Regular rate and rhythm with a normal S1 and S2. No gallops, murmurs, or rubs. Normal PMI, no JVD. No pulse deficits. Respiratory: Lungs have equal breath sounds bilaterally, clear to auscultation and percussion. No rales, rhonchi or wheezes noted. No increased work of breathing, no retractions or nasal flaring. Abdomen/GI: Soft, non-tender, with normal bowel sounds. No distension or tympany. No guarding or rebound. No evidence of tenderness throughout. Skin: Warm, dry with normal turgor. Normal color with no rashes, no lesions, and no evidence of cellulitis. MS/ Extremity: Pulses equal, no cyanosis. Neurovascular intact. Full, normal range of motion. Neuro: Awake and alert, GCS 15, oriented to person, place, time, and situation. Cranial nerves II-XII grossly intact. Motor strength 5/5 in all extremities. Sensory grossly intact. 06:54 ENT: External ear(s): are unremarkable, Ear canal(s): are normal, TM's: dullness, on the left, erythema, that is moderate, on the left, Examination of the other ear shows no obvious abnormality, Nose: is normal, Mouth: Lips: moist, Oral mucosa: pink and intact, moist, Gums: pink, Tongue: is moist, Posterior pharynx: Airway: patent, Tonsils: with erythema, no exudate, no ulcerations, Uvula: midline, non-edematous, no erythema, swelling, is not appreciated, erythema, that is mild. Vital Signs: 06:42 BP 121 / 90; Pulse 112; Resp 18; Temp 98.9; Pulse Ox 100% on R/A; kd3 MDM: 06:32 Patient medically screened. 8 06:54 Data reviewed: vital signs, nurses notes, and as a result, I will discharge patient. jr8 Data interpreted: Pulse oximetry: on room air is 100 %. Interpretation: normal. Counseling: I had a detailed discussion with the patient and/or guardian regarding: the historical points, exam findings, and any diagnostic results supporting the discharge/admit diagnosis, the need for outpatient follow up, a family practitioner, to return to the emergency department if symptoms worsen or persist or if there are any questions or concerns that arise at home. Administered Medications: No medications were administered Disposition: 20:57 Co-signature as Attending Physician, Sagar Painting MD I agree with the assessment and rn plan of care. Attestation: The patient's history, exam findings, diagnostics, and a summary of any interventions or procedures was reviewed in detail with Rui ZIMMERMAN. Disposition Summary: 06/08/21 06:50 Discharge Ordered Location: Home jr Problem: new jr8 Symptoms: have improved jr8 Condition: Stable jr8 Diagnosis - Acute suppurative otitis media jr8 - Acute laryngopharyngitis jr8 Followup: jr8 - With: Private Physician - When: 1 week - Reason: Recheck today's complaints, Continuance of care, Re-evaluation by your physician Discharge Instructions: - Discharge Summary Sheet jr8 - Otitis Media, Adult jr8 - Pharyngitis jr8 Forms: - Medication Reconciliation Form jr8 - Thank You Letter jr8 - Antibiotic Education jr8 - Prescription Opioid Use jr8 Prescriptions: - Augmentin 875-125 mg Oral Tablet - take 1 tablet by ORAL route every 12 hours for 10 days; 20 tablet; Refills: 0, jr8 Product Selection Permitted Signatures: Sagar Painting MD MD rn Yi Paige RN RN lp1 Rui Álvarez PA PA jr8
[2021-06-08 07:14] VITALS: BP 121/90; TEMP 98.9; O2SAT 100
== END 2021-06-08 06:59 | disposition home or self-care (01) ==
LOC: ER 06:21
DX: H66.002 Acute suppurative otitis media without spontaneous rupture of ear drum, left ear (principal); J06.0 Acute laryngopharyngitis
CPT/HCPCS: 99282

== ENCOUNTER 2022-06-03 21:54 | Emergency (ER) | payer BC ==
--- OUTSIDE RECORDS SUMMARY | 2022-06-03 22:00 | XMS REPORT | Continuity of Care Document ---
:1990 Author Organization [facility] t Address [address] [place] [address] Care Team Providers Name Role Phone Elena Dan Primary Care Physician [phone] GELY LEON Attending Clinician Unavailable Tiffanie Nolen RN Attending Clinician Unavailable Cele Tabares PA-C Attending Clinician Gely Leon MD Attending Clinician Pob, [facility] Main Attending Clinician Unavailable Doctor Unassigned, [place] Attending Clinician Unavailable SHILOH IRAHETA Attending Clinician Unavailable Shiloh Iraheta MD Attending Clinician NIMISHA SOTO Attending Clinician Unavailable Nimisha Soto MD Attending Clinician Ultrasound, Ang-Mfm Attending Clinician Unavailable Rik Julian MD Attending Clinician [phone] RIK JULIAN Attending Clinician Unavailable 2, [facility] Attending Clinician Unavailable Loly Baldwin DO Attending Clinician LOLY BALDWIN Attending Clinician Unavailable GELY LEON Admitting Clinician Unavailable Gely Leon MD Admitting Clinician Payers Payer Name Policy Type Policy Number Effective Date Expiration Date [place] [employer] [id number] 2016 00:00:00 Problems Condition Condition Condition Status Onset Resolution Last Treating Co mments Source Name Details Category Date Date Treatment Clinician Date 39 weeks 39 weeks Disease Active 2021-06 Unive rs gestation gestation 0-31 ity of of of 00:00: [place] 00 [facility] Liveborn Liveborn Disease Active 2021-06 Unive rs , of , of 0-31 it y of kennedy kennedy 00:00[place] , , 00 [place]ical born in born in [facility] hospital by by delivery delivery Encounter Encounter Disease Active 2021-06 Uni vers for tubal for tubal 0-21 ity of ligation ligation 00:00: [place] counseling counseling 00 Me dical Branch Status Status Disease Active 2021-06 Univers post post 0-21 ity of bilateral bilateral 00:00: Torrey aleman salpingect salpingect 00 Me dical chad chad [place] Supervisio Supervisio Disease Active 2021-06 U nivers n of high n of high 0-05 ity of risk risk 00:00: [place] 00 [facility] in third in third Branch trimester trimester Supervisio Supervisio Disease Active U nivers n of other n of other 5-29 it y of normal normal 00:00: [place] 00 [facility] Nausea and Nausea and Disease Active U nivers vomiting vomiting 3-17 ity of in in 00:00: [place] 00 [facility] Obesity in Obesity in Disease Active U nivers 3-17 ity of 00:00: [place] 00 [facility] Branch Spotting Spotting Disease Active Unive rs in early in early 3-17 it[place] of [place] [facility] Branch Previous Previous Disease Active Unive rs 3-08 ity of delivery delivery 00:00: [place] affecting affecting 00 [facility] , , Br anch antepartum antepartum Gastroesop Gastroesop Disease Active M ethodi hageal hageal 4-07 st reflux reflux 00:00: Hospita disease disease 00 l without without esophagiti esophagiti s s Viral URI Viral URI Disease [facility] 00[facility]00: Hospita 00 l H/O H/O Disease Active Methodi abnormal abnormal st cervical cervical Hospit a Papanicola Papanicola l ou smear ou smear Allergies, Adverse Reactions, Alerts Allergy Allergy Status Severity Reaction(s) Onset Inactive Treating Comm ents Source Name Type Date Date Clinician No Known Propensi Active Method i Drug ty to 10-25 st Allergie adverse 00:00: Hospita s reaction 00 l s to drug NO KNOWN Drug Active [facility] ALLERG Class ity of S [facility] Family History Family Member Diagnosis Comments Start Date Stop Date Source Natural father No Known Problems Met [facility] Natural mother No Known Problems Met [facility] [place] [facility] Social History Social Habit Start Date Stop Date Quantity Comments Source ASSERTION 2021-07-31 University 00:00:00 [facility] Exposure to 2022-05-04 2022-05-14 Not sure [facility]-CoV-2 00:00:00 13:04:00 [facility] [place] Tobacco use and 2021-12-25 2021-12-25 Smokeless tobacco Un iversity of exposure 00:00:00 00:00:00 non-user [facility] Alcohol intake 2020-02-24 2020-02-24 Current drinker [facility] 00:00:00 00:00:00 of [facility] (finding) Alcohol Comment 2017-12-11 2017-12-11 twice monthly Method ist 00:00:00 00:00:00 [facility] Sex Ass[birth year] At [birth year] [employer] 00:00:00 00:00:00 Hospital Smoking Status Start Date Stop Date Source Never smoked tobacco [facility] Medications Ordered Filled Start Stop Current Ordering Indication Dosage Frequency Signature Comments Components Source Medication Medication Date Date Medication? Clinician (SIG) Name Name ibuprofen 2021-06 Yes 600mg 600 mg, Univ ers (IBU) 1-02 Oral, Q6H ity of tablet 600 05:00: ABX, First [place] mg 00 dose on Sat Branch 04/18/22 at 0000, Until Discontinu ed, Routine ibuprofen 2021-06 Yes 600mg 600 mg, Univ ers (IBU) 1-02 Oral, Q6H ity of tablet 600 05:00: ABX, [place] mg 00 dose on Medical Wed Branch 04/18/22 at 0000, Until Discontinu ed, Routine acetaminoph 2021-06 Yes [id number] 650mg Take 2 Univers en 1-02 tablets by ity of (TYLENOL) 00:00: mouth [place] 325 mg 00 every 6 Medical tablet (six) Branch hours as needed for Pain (scale 1-3) or Pain (scale 4-6). acetaminoph 2021-06 Yes [id number] 650mg Take 2 Univers en 1-02 tablets by ity of (TYLENOL) 00:00: mouth [place] 325 mg 00 every 6 Medical tablet (six) Branch hours as needed for Pain (scale 1-3) or Pain (scale 4-6). acetaminoph 2021-06 Yes [id number] 650mg Take 2 Univers en 1-02 tablets by ity of (TYLENOL) 00:00: mouth [place] 325 mg 00 every 6 Medical tablet (six) Branch hours as needed for Pain (scale 1-3) or Pain (scale 4-6). acetaminoph 2021-06 Yes [id number] 650mg Take 2 Univers en 1-02 tablets by ity of (TYLENOL) 00:00: mouth [place] 325 mg 00 every 6 Medical tablet (six) Branch hours as needed for Pain (scale 1-3) or Pain (scale 4-6). acetaminoph 2021-06 Yes [id number] 650mg Take 2 Univers en 1-02 tablets by ity of (TYLENOL) 00:00: mouth [place] 325 mg 00 every 6 Medical tablet (six) Branch hours as needed for Pain (scale 1-3) or Pain (scale 4-6). acetaminoph 2021-06 Yes [id number] 650mg Take 2 Univers en 1-02 tablets by ity of (TYLENOL) 00:00: mouth [place] 325 mg 00 every 6 Medical tablet (six) Branch hours as needed for Pain (scale 1-3) or Pain (scale 4-6). HYDROcodone 2021-06- Yes [id number] 1{tbl} Take 1 U nivers -acetaminop 06-18 11-10 tablet by it y of hen 5-325 00:00: 05:59 mouth [place] mg tablet 00 :00 every 6 Medical (six) Branch hours as needed for Pain (scale 7-10) for up to 7 days. Indication s: acute pain HYDROcodone 2021-06- Yes [id number] 1{tbl} Take 1 U nivers -acetaminop 1-02 11-10 tablet by it y of hen 5-325 00:00: 05:59 mouth [place] mg tablet 00 :00 every 6 Medical (six) Branch hours as needed for Pain (scale 7-10) for up to 7 days. Indication s: acute pain HYDROcodone 2021-06- Yes [id number] 1{tbl} Take 1 U nivers -acetaminop 1-02 11-10 tablet by it y of hen 5-325 00:00: 05:59 mouth [place] mg tablet 00 :00 every 6 Medical (six) Branch hours as needed for Pain (scale 7-10) for up to 7 days. Indication s: acute pain HYDROcodone 2021-06- Yes [id number] 1{tbl} Take 1 U nivers -acetaminop 1-02 11-10 tablet by it y of hen 5-325 00:00: 05:59 mouth [place] mg tablet 00 :00 every 6 Medical (six) Branch hours as needed for Pain (scale 7-10) for up to 7 days. Indication s: acute pain gabapentin 2021-06- Yes [id number] 300mg Take 1 Univers 300 mg 06-18 capsule by ity of capsule 00:00: 05:59 mouth in [place] 00 :00 the Medical morning Branch and 1 capsule at noon and 1 capsule in the evening. Do all this for 5 days. gabapentin 2021-06- Yes [id number] 300mg Take 1 Univers 300 mg 06-18 capsule by ity of capsule 00:00: 05:59 mouth in [place] 00 :00 the Medical morning Branch and 1 capsule at noon and 1 capsule in the evening. Do all this for 5 days. gabapentin 2021-06- Yes [id number] 300mg Take 1 Univers 300 mg 06-18 capsule by ity of capsule 00:00: 05:59 mouth in [place] 00 :00 the Medical morning Branch and 1 capsule at noon and 1 capsule in the evening. Do all this for 5 days. gabapentin 2021-06- Yes [id number] 300mg Take 1 Univers 300 mg 06-18 capsule by ity of capsule 00:00: 05:59 mouth in [place] 00 :00 the Medical morning Branch and 1 capsule at noon and 1 capsule in the evening. Do all this for 5 days. ketorolac 2021-06 No 30mg 30 mg, Unive rs (TORADOL) 06-17 Slow IV ity of injection 05:00: 23:23 Push, Q6H [place] 30 mg 00 :00 ABX, 4 Medical doses, Branch First dose on Sat04/17/22 at 0000, Last dose on Sat04/17/22 at 1800, Routine acetaminoph 2021-06 Yes 650mg 650 mg, Un gail en 01 Oral, Q6H ity of (TYLENOL) 03:00: ABX, First [place] tablet 650 00 dose on Medica l mg [facility] Branch 04/16/22 at 2200, Until Discontinu ed, Routine HYDROcodone 2021-06 Yes 1{tbl} 1 tablet, Univers -acetaminop 1-01 Oral, ity of hen (NORCO 03:00: Q6HPRN, [place] 5) 5-325 mg 00 Starting Medi mayito tablet 1 on [facility] Branch tablet 04/16/22 at 2200, Until Discontinu ed, Routine, Pain (scale 7-10), Alternate with Ibuprofen acetaminoph 2021-06 Yes 650mg 650 mg, Un gail en 06-17 Oral, Q6H ity of (TYLENOL) 03:00: ABX, First [place] tablet 650 00 dose on Medica l mg [facility] 04/16/22 at 2200, Until Discontinu ed, Routine HYDROcodone 2021-06 Yes 1{tbl} 1 tablet, Univers -acetaminop 1-01 Oral, ity of hen (NORCO 03:00: Q6HPRN, [place] 5) 5-325 mg 00 Starting Medi mayito tablet 1 on [facility] Branch tablet 04/16/22 at 2200, Until Discontinu ed, Routine, Pain (scale 7-10), Alternate with Ibuprofen 2021-06 Yes [id number] 1{tbl} Take 1 Univers vitamin 1-01 tablet by ity of w/FA tablet 00:00: mouth in [place] 00 the Medical morning. Branch docusate 2021-06 Yes [id number] 200mg Take 2 U nivers 100 mg 1-01 capsules ity of capsule 00:00: by mouth [place] 00 once daily Medical as needed Branch for Constipati on. ferrous 2021-06 Yes [id number] 325mg Take 1 Un gail sulfate 325 1-01 tablet by ity of mg (65 mg 00:00: mouth [place] iron) 00 the Medical tablet morning Branch and 1 tablet in the evening. ibuprofen 2021-06 Yes [id number] 600mg Take 1 Univers 600 mg 1-01 tablet by ity of tablet 00:00: mouth [place] 00 every 6 Medical (six) Branch hours as needed (Pain). Take with food or milk. 2021-06 Yes [id number] 1{tbl} Take 1 Univers vitamin 1-01 tablet by ity of w/FA tablet 00:00: mouth in [place] 00 the Medical morning. Branch docusate 2021-06 Yes [id number] 200mg Take 2 U nivers 100 mg 1-01 capsules ity of capsule 00:00: by mouth [place] 00 once daily Medical as needed Branch for Constipati on. ferrous 2021-06 Yes [id number] 325mg Take 1 Un gail sulfate 325 1-01 tablet by ity of mg (65 mg 00:00: mouth [place] iron) 00 the Medical tablet morning Branch and 1 tablet in the evening. ibuprofen 2021-06 Yes [id number] 600mg Take 1 Univers 600 mg 1-01 tablet by ity of tablet 00:00: mouth [place] 00 every 6 Medical (six) Branch hours as needed (Pain). Take with food or milk. 2021-06 Yes [id number] 1{tbl} Take 1 Univers vitamin 1-01 tablet by ity of w/FA tablet 00:00: mouth in [place] 00 the Medical morning. Branch docusate 2021-06 Yes [id number] 200mg Take 2 U nivers 100 mg 1-01 capsules ity of capsule 00:00: by mouth [place] 00 once daily Medical as needed Branch for Constipati on. ferrous 2021-06 Yes [id number] 325mg Take 1 Un gail sulfate 325 1-01 tablet by ity of mg (65 mg 00:00: mouth [place] iron) 00 the Medical tablet morning Branch and 1 tablet in the evening. ibuprofen 2021-06 Yes [id number] 600mg Take 1 Univers 600 mg 1-01 tablet by ity of tablet 00:00: mouth [place] 00 every 6 Medical (six) Branch hours as needed (Pain). Take with food or milk. 2021-06 Yes [id number] 1{tbl} Take 1 Univers vitamin 1-01 tablet by ity of w/FA tablet 00:00: mouth in [place] 00 the Medical morning. Branch docusate 2021-06 Yes [id number] 200mg Take 2 U nivers 100 mg 1-01 capsules ity of capsule 00:00: by mouth [place] 00 once daily Medical as needed Branch for Constipati on. ferrous 2021-06 Yes [id number] 325mg Take 1 Un gail sulfate 325 1-01 tablet by ity of mg (65 mg 00:00: mouth [place] iron) 00 the Medical tablet morning Branch and 1 tablet in the evening. ibuprofen 2021-06 Yes [id number] 600mg Take 1 Univers 600 mg 1-01 tablet by ity of tablet 00:00: mouth [place] 00 every 6 Medical (six) Branch hours as needed (Pain). Take with food or milk. 2021-06 Yes [id number] 1{tbl} Take 1 Univers vitamin 1-01 tablet by ity of w/FA tablet 00:00: mouth in [place] 00 the Medical morning. Branch docusate 2021-06 Yes [id number] 200mg Take 2 U nivers 100 mg 1-01 capsules ity of capsule 00:00: by mouth [place] 00 once daily Medical as needed Branch for Constipati on. ferrous 2021-06 Yes [id number] 325mg Take 1 Un gail sulfate 325 1-01 tablet by ity of mg (65 mg 00:00: mouth [place] iron) 00 the Medical tablet morning Branch and 1 tablet in the evening. ibuprofen 2021-06 Yes [id number] 600mg Take 1 Univers 600 mg 1-01 tablet by ity of tablet 00:00: mouth [place] 00 every 6 Medical (six) Branch hours as needed (Pain). Take with food or milk. 2021-06 Yes [id number] 1{tbl} Take 1 Univers vitamin 1-01 tablet by ity of w/FA tablet 00:00: mouth in [place] 00 the Medical morning. Branch docusate 2021-06 Yes [id number] 200mg Take 2 U nivers 100 mg 1-01 capsules ity of capsule 00:00: by mouth [place] 00 once daily Medical as needed Branch for Constipati on. ferrous 2021-06 Yes [id number] 325mg Take 1 Un gail sulfate 325 1-01 tablet by ity of mg (65 mg 00:00: mouth [place] iron) 00 the Medical tablet morning Branch and 1 tablet in the evening. ibuprofen 2021-06 Yes [id number] 600mg Take 1 Univers 600 mg 1-01 tablet by ity of tablet 00:00: mouth [place] 00 every 6 Medical (six) Branch hours as needed (Pain). Take with food or milk. 2021-06 Yes [id number] 1{tbl} Take 1 Univers vitamin 1-01 tablet by ity of w/FA tablet 00:00: mouth in [place] 00 the Medical morning. Branch docusate 2021-06 Yes [id number] 200mg Take 2 U nivers 100 mg 1-01 capsules ity of capsule 00:00: by mouth [place] 00 once daily Medical as needed Branch for Constipati on. ferrous 2021-06 Yes [id number] 325mg Take 1 Un gail sulfate 325 1-01 tablet by ity of mg (65 mg 00:00: mouth [place] iron) 00 the Medical tablet morning Branch and 1 tablet in the evening. ibuprofen 2021-06 Yes [id number] 600mg Take 1 Univers 600 mg 1-01 tablet by ity of tablet 00:00: mouth [place] 00 every 6 Medical (six) Branch hours as needed (Pain). Take with food or milk. 2021-06 Yes [id number] 1{tbl} Take 1 Univers vitamin 1-01 tablet by ity of w/FA tablet 00:00: mouth in [place] 00 the Medical morning. Branch docusate 2021-06 Yes [id number] 200mg Take 2 U nivers 100 mg 1-01 capsules ity of capsule 00:00: by mouth [place] 00 once daily Medical as needed Branch for Constipati on. ferrous 2021-06 Yes [id number] 325mg Take 1 Un gail sulfate 325 1-01 tablet by ity of mg (65 mg 00:00: mouth [place] iron) 00 the Medical tablet morning Branch and 1 tablet in the evening. ibuprofen 2021-06 Yes [id number] 600mg Take 1 Univers 600 mg 1-01 tablet by ity of tablet 00:00: mouth [place] 00 every 6 Medical (six) Branch hours as needed (Pain). Take with food or milk. gabapentin 2021-06 Yes 300mg 300 mg, Uni vers (NEURONTIN) 0-31 Oral, TID, it y of capsule 300 19:00: First dose [place] mg 00 on [facility] 04/16/22 Branch at 1400, Until Discontinu ed, Routine gabapentin 2021-06 Yes 300mg 300 mg, Uni vers (NEURONTIN) 0-31 Oral, TID, it y of capsule 300 19:00: First dose [place] mg 00 on [facility] 04/16/22 Branch at 1400, Until Discontinu ed, Routine rho(D) 2021-06 Yes 300ug 300 mcg, Univer s immune 0-31 Intramuscu ity of globulin 15:30: lar, ONCE, [place] (RHOGAM) 02 For 1 Medical syringe 300 dose, Branch mcg Conditiona l, Routine rho(D) 2021-06 Yes 300ug 300 mcg, Univer s immune 0-31 Intramuscu ity of globulin 15:30: lar, ONCE, [place] (RHOGAM) 02 For 1 Medical syringe 300 dose, Branch mcg Conditiona l, Routine lactated 2021-06- No 1000mL at 125 [facility] ers ringers IV 0-31 10-31 mL/hr, ity of infusion 15:30: 18:42 1,000 mL, [place] 1,000 mL 00 :00 IV Medical Infusion, Branch ONCE, 1 dose, On Sat04/16/22 at 1030, Routine diphenhydrA 2021-06 Yes 25mg 25 mg, [facility] ers MINE 0-31 Slow IV ity of (BENADRYL) 15:29: Push, [place] injection 57 Q6HPRN, Medical 25 mg Starting Branch on Sat04/16/22 at 1029, Until Discontinu ed, Routine, Itching diphenhydrA 2021-06 Yes 25mg 25 mg, [facility] ers MINE 0-31 Oral, ity of (BENADRYL) 15:29: Q6HPRN, [place] tablet 25 57 Starting Medica l mg on Sat [place] 04/16/22 at 1029, Until Discontinu ed, Routine, Sleep, Itching ondansetron 2021-06 Yes 4mg 4 mg, Slow Univers (ZOFRAN 0-31 IV Push, ity of (PF)) 15:29: Q8HPRN, [place] injection 4 57 Starting Medi mayito mg on Sat Branch 04/16/22 at 1029, Until Discontinu ed, Routine, Nausea and Vomiting (N/V) bisacodyL 2021-06 Yes 10mg 10 mg, Univer s (DULCOLAX) 0-31 Rectal, ity of suppository 15:29: QDAILYPRN, [place] 10 mg 57 Starting Medical on Sat Branch 04/16/22 at 1029, Until Discontinu ed, Routine, Constipati on simethicone 2021-06 Yes 160mg 160 mg, Un gail (GAS RELIEF 0-31 Oral, ity of (SIMETHICON 15:29: PC+HSPRN, [place] E)) 57 Starting Medical chewable on Sat tablet 160 04/16/22 mg at 1029, Until Discontinu ed, Routine, Gas docusate 2021-06 Yes 200mg 200 mg, Unive rs (COLACE) 0-31 Oral, ity of capsule 200 15:29: QDAILYPRN, [place] mg 57 Starting Medical on Sat04/16/22 at 1029, Until Discontinu ed, Routine, Constipati on magnesium 2021-06 Yes 30mL 30 mL, Univer s hydroxide 0-31 Oral, ity of (MILK OF 15:29: QDAILYPRN, [place] MAGNESIA) 57 Starting Medica l 400 mg/5 mL on Sat suspension 04/16/22 30 mL at 1029, Until Discontinu ed, Routine, Constipati on lactated 2021-06 Yes 1000mL at 125 Unive rs ringers IV 0-31 mL/hr, ity of infusion 15:29: 1,000 mL, [place] 1,000 mL 57 IV Medical Infusion, Branch PRN, 1 dose, Starting on Sat04/16/22 at 1029, Until Discontinu ed, Routine diphenhydrA 2021-06 Yes 25mg 25 mg, Univ ers MINE 0-31 Slow IV ity of (BENADRYL) 15:29: Push, [place] injection 57 Q6HPRN, Medical 25 mg Starting Branch on Sat04/16/22 at 1029, Until Discontinu ed, Routine, Itching diphenhydrA 2021-06 Yes 25mg 25 mg, Univ ers MINE 0-31 Oral, ity of (BENADRYL) 15:29: Q6HPRN, [place] tablet 25 57 Starting Medica l mg on Sat Branch 04/16/22 at 1029, Until Discontinu ed, Routine, Sleep, Itching ondansetron 2021-06 Yes 4mg 4 mg, Slow Univers (ZOFRAN 0-31 IV Push, ity of (PF)) 15:29: Q8HPRN, [place] injection 4 57 Starting Medi mayito mg on Sat04/16/22 at 1029, Until Discontinu ed, Routine, Nausea and Vomiting (N/V) bisacodyL 2021-06 Yes 10mg 10 mg, Univer s (DULCOLAX) 0-31 Rectal, ity of suppository 15:29: QDAILYPRN, [place] 10 mg 57 Starting Medical on Sat Branch 04/16/22 at 1029, Until Discontinu ed, Routine, Constipati on simethicone 2021-06 Yes 160mg 160 mg, Un gail (GAS RELIEF 0-31 Oral, ity of (SIMETHICON 15:29: PC+HSPRN, [place] E)) 57 Starting Medical chewable on Sat tablet 160 04/16/22 mg at 1029, Until Discontinu ed, Routine, Gas docusate 2021-06 Yes 200mg 200 mg, Unive rs (COLACE) 0-31 Oral, ity of capsule 200 15:29: QDAILYPRN, [place] mg 57 Starting Medical on Sat Branch 04/16/22 at 1029, Until Discontinu ed, Routine, Constipati on magnesium 2021-06 Yes 30mL 30 mL, Univer s hydroxide 0-31 Oral, ity of (MILK OF 15:29: QDAILYPRN, [place] MAGNESIA) 57 Starting Medica l 400 mg/5 mL on Sat suspension 04/16/22 30 mL at 1029, Until Discontinu ed, Routine, Constipati on lactated 2021-06 Yes 1000mL at 125 Unive rs ringers IV 0-31 mL/hr, ity of infusion 15:29: 1,000 mL, [place] 1,000 mL 57 IV Medical Infusion, Branch PRN, 1 dose, Starting on Sat04/16/22 at 1029, Until Discontinu ed, Routine mupirocin 2021-06 Yes Intra-op Univ ers (BACTROBAN 0-31 ity of OINT) 2 % 14:11: [place] skin 00 Medical ointment Branch mupirocin 2021-06 Yes Intra-op Univ ers (BACTROBAN 0-31 ity of OINT) 2 % 14:11: [place] skin 00 Medical ointment Branch sodium 2021-06 Yes PRN, Univers chloride 0-31 Starting ity of 0.9 % 14:00: on [facility] irrigation 00 04/16/22 Medic al solution at 0900, Branch Until Discontinu ed, Intra-op sodium 2021-06 Yes PRN, Univers chloride 0-31 Starting ity of 0.9 % 14:00: on [facility] irrigation 04/16/22 Medic al solution at 0900, Branch Until Discontinu ed, Intra-op sodium 2021-06 No 30mL 30 mL, Univers citrate-cit 0-31 10-31 Oral, ity of filippo acid 10:45: 12:53 PRE-PROCED [place] (BICITRA) 51 :00 URE ONCE, Medic al [id number] 1 dose, Branch mg/5 mL Starting solution 30 on 04/16/22 at 0545, Until Discontinu ed, Routine, Surgery/Pr ocedure [id number] IV 2021-06- No 1000mL at 1-125 U nivers infusion 0-31 10-31 mL/hr, IV ity o f 1,000 mL 10:45: 15:30 Infusion, [place] 51 :00 TITRATE, Medical Starting Branch on Sat04/16/22 at 0545, Until Sat04/16/22 at 1030, Routine pyridoxine, Yes [id number] 25mg Take 1 Univers VITAMIN 3-17 tablet by ity of B-6, 25 mg 00:00: mouth 3 [place] tablet 00 (three) Medical times Branch daily. doxylamine Yes [id number] 25mg Take 1 U nivers 25 mg 3-17 tablet by ity of tablet 00:00: mouth at [place] 00 bedtime. Medical Branch pyridoxine, Yes [id number] 25mg Take 1 Univers VITAMIN 3-17 tablet by ity of B-6, 25 mg 00:00: mouth 3 [place] tablet 00 (three) Medical times Branch daily. doxylamine Yes [id number] 25mg Take 1 U nivers 25 mg 3-17 tablet by ity of tablet 00:00: mouth at [place] 00 bedtime. Medical Branch pyridoxine, Yes [id number] 25mg Take 1 Univers VITAMIN 3-17 tablet by ity of B-6, 25 mg 00:00: mouth 3 [place] tablet 00 (three) Medical times Branch daily. doxylamine Yes [id number] 25mg Take 1 U nivers 25 mg 3-17 tablet by ity of tablet 00:00: mouth at [place] 00 bedtime. Medical Branch pyridoxine, Yes [id number] 25mg Take 1 Univers VITAMIN 3-17 tablet by ity of B-6, 25 mg 00:00: mouth 3 [place] tablet 00 (three) Medical times Branch daily. doxylamine Yes [id number] 25mg Take 1 U nivers 25 mg 3-17 tablet by ity of tablet 00:00: mouth at [place] 00 bedtime. Medical Branch pyridoxine, Yes [id number] 25mg Take 1 Univers VITAMIN 3-17 tablet by ity of B-6, 25 mg 00:00: mouth 3 [place] tablet 00 (three) Medical times Branch daily. doxylamine Yes [id number] 25mg Take 1 U nivers 25 mg 3-17 tablet by ity of tablet 00:00: mouth at [place] 00 bedtime. Medical Branch pyridoxine, Yes [id number] 25mg Take 1 Univers VITAMIN 3-17 tablet by ity of B-6, 25 mg 00:00: mouth 3 [place] tablet 00 (three) Medical times Branch daily. doxylamine Yes [id number] 25mg Take 1 U nivers 25 mg 3-17 tablet by ity of tablet 00:00: mouth at [place] 00 bedtime. Medical Branch pyridoxine, Yes [id number] 25mg Take 1 Univers VITAMIN 3-17 tablet by ity of B-6, 25 mg 00:00: mouth 3 [place] tablet 00 (three) Medical times Branch daily. doxylamine 0 Yes [id number] 25mg Take 1 U nivers 25 mg 3-17 tablet by ity of tablet 00:00: mouth at [place] 00 bedtime. Medical Branch pyridoxine, 0 Yes [id number] 25mg Take 1 Univers VITAMIN 3-17 tablet by ity of B-6, 25 mg 00:00: mouth 3 [place] tablet 00 (three) Medical times Branch daily. doxylamine 0 Yes [id number] 25mg Take 1 U nivers 25 mg 3-17 tablet by ity of tablet 00:00: mouth at [place] 00 bedtime. Medical Branch pyridoxine, 0 Yes [id number] 25mg Take 1 Univers VITAMIN 3-17 tablet by ity of B-6, 25 mg 00:00: mouth 3 [place] tablet 00 (three) Medical times Branch daily. doxylamine 0 Yes [id number] 25mg Take 1 U nivers 25 mg 3-17 tablet by ity of tablet 00:00: mouth at [place] 00 bedtime. Medical Branch pyridoxine, 0 Yes [id number] 25mg Take 1 Univers VITAMIN 3-17 tablet by ity of B-6, 25 mg 00:00: mouth 3 [place] tablet 00 (three) Medical times Branch daily. doxylamine 0 Yes [id number] 25mg Take 1 U nivers 25 mg 3-17 tablet by ity of tablet 00:00: mouth at [place] 00 bedtime. Medical Branch pyridoxine, 0 Yes [id number] 25mg Take 1 Univers VITAMIN 3-17 tablet by ity of B-6, 25 mg 00:00: mouth 3 [place] tablet 00 (three) Medical times Branch daily. doxylamine 2021-0 Yes [id number] 25mg Take 1 U nivers 25 mg 3-17 tablet by ity of tablet 00:00: mouth at [place] 00 bedtime. [facility] pyridoxine, 0 Yes [id number] 25mg Take 1 Univers VITAMIN 3-17 tablet by ity of B-6, 25 mg 00:00: [place] (three) Medical times Branch daily. doxylamine 2021-0 Yes [id number] 25mg Take 1 U nivers 25 mg 3-17 tablet by ity of tablet 00:00: mouth at [place] 00 bedtime. [facility] pyridoxine, 0 Yes [id number] 25mg Take 1 [facility] VITAMIN 3-17 tablet by [facility] B-6, 25 mg 00:00: [place] 00 (three) Medical times [facility] daily. doxylamine 2021-0 Yes [id number] 25mg Take 1 U nivers 25 mg 3-17 tablet by ity of tablet 00:00: mouth at [place] 00 bedtime. [facility] pyridoxine, 0 Yes [id number] 25mg Take 1 [facility] VITAMIN 3-17 tablet by [facility] of B-6, 25 mg 00:00: [place] 00 (three) Medical times [facility] daily. doxylamine Yes [id number] 25mg Take 1 U nivers 25 mg 3-17 tablet by ity of tablet 00:00: mouth at [place] 00 bedtime. [facility] pyridoxine, Yes [id number] 25mg Take 1 [facility] VITAMIN 3-17 tablet by [facility] of B-6, 25 mg 00:00: [place] 00 (three) Medical times [facility] daily. doxylamine 0 Yes [id number] 25mg Take 1 U nivers 25 mg 3-17 tablet by ity of tablet 00:00: mouth at [place] 00 bedtime. [facility] pyridoxine, 0 Yes [id number] 25mg Take 1 [facility] VITAMIN 3-17 tablet by [facility] B-6, 25 mg 00:00: [place] tablet 00 (three) Medical times Branch daily. doxylamine 0 Yes [id number] 25mg Take 1 U nivers 25 mg 3-17 tablet by ity of tablet 00:00: mouth at [place] 00 bedtime. [facility] pyridoxine, 0 Yes [id number] 25mg Take 1 [facility] VITAMIN 3-17 tablet by [facility] B-6, 25 mg 00:00: [place] tablet 00 (three) Medical times Branch daily. doxylamine 2021-0 Yes [id number] 25mg Take 1 U nivers 25 mg 3-17 tablet by ity of tablet 00:00: mouth at [place] 00 bedtime. [facility] pyridoxine, 0 Yes [id number] 25mg Take 1 [facility] VITAMIN 3-17 tablet by [facility] of B-6, 25 mg 00:00: mouth [place] tablet 00 (three) Medical times Branch daily. doxylamine 0 Yes [id number] 25mg Take 1 U nivers 25 mg 3-17 tablet by ity of tablet 00:00: mouth at [place] 00 bedtime. [facility] pyridoxine, Yes [id number] 25mg Take 1 [facility] VITAMIN 3-17 tablet by it[facility] of B-6, 25 mg 00:00: [place] tablet 00 (three) Medical times Branch daily. doxylamine Yes [id number] 25mg Take 1 U nivers 25 mg 3-17 tablet by ity of tablet 00:00: mouth at [place] 00 bedtime. [facility] pyridoxine, Yes [id number] 25mg Take 1 [facility] VITAMIN 3-17 tablet by [facility] B-6, 25 mg 00:00: [place] tablet 00 (three) Medical times [facility] daily. doxylamine Yes [id number] 25mg Take 1 U nivers 25 mg 3-17 tablet by ity of tablet 00:00: mouth at [place] 00 bedtime. [facility] pyridoxine, Yes [id number] 25mg Take 1 [facility] VITAMIN 3-17 tablet by [facility] B-6, 25 mg 00:00: mouth [place] tablet 00 (three) Medical times [facility] daily. doxylamine Yes [id number] 25mg Take 1 [facility] nivers 25 mg 3-17 tablet by ity of tablet 00:00: mouth at [place] 00 bedtime. [facility] pyridoxine, 0 Yes [id number] 25mg Take 1 [facility] VITAMIN 3-17 tablet by ity of B-6, 25 mg 00:00: mouth [place] tablet 00 (three) Medical times Branch daily. doxylamine 0 Yes [id number] 25mg Take 1 U nivers 25 mg 3-17 tablet by ity of tablet 00:00: mouth at [place] 00 bedtime. [facility] pyridoxine, Yes [id number] 25mg Take 1 [facility] VITAMIN 3-17 tablet by [facility] of B-6, 25 mg 00:00: mouth [place] tablet 00 (three) Medical times Branch daily. doxylamine 0 Yes [id number] 25mg Take 1 U nivers 25 mg 3-17 tablet by ity of tablet 00:00: mouth at [place] 00 bedtime. Medical Branch pyridoxine, 0 Yes [id number] 25mg Take 1 [facility] VITAMIN 3-17 tablet by [facility] of B-6, 25 mg 00:00: mouth [place] tablet 00 (three) Medical times Branch daily. doxylamine 0 Yes [id number] 25mg Take 1 U nivers 25 mg 3-17 tablet by ity of tablet 00:00: mouth at [place] 00 bedtime. Medical [facility] pyridoxine, Yes [id number] 25mg Take 1 [facility] VITAMIN 3-17 tablet by [facility] of B-6, 25 mg 00:00: mouth [place] tablet 00 (three) Medical times Branch daily. doxylamine Yes [id number] 25mg Take 1 U nivers 25 mg 3-17 tablet by ity of tablet 00:00: mouth at [place] 00 bedtime. [facility] pyridoxine, 0 Yes [id number] 25mg Take 1 [facility] VITAMIN 3-17 tablet by [facility] of B-6, 25 mg 00:00: mouth [place] tablet 00 (three) Medical times Branch daily. doxylamine 0 Yes [id number] 25mg Take 1 U nivers 25 mg 3-17 tablet by ity of tablet 00:00: mouth at [place] 00 bedtime. [facility] pyridoxine, 0 Yes [id number] 25mg Take 1 [facility] VITAMIN 3-17 tablet by [facility] of B-6, 25 mg 00:00: mouth [place] tablet 00 (three) Medical times Branch daily. doxylamine 0 Yes [id number] 25mg Take 1 U nivers 25 mg 3-17 tablet by ity of tablet 00:00: mouth at [place] 00 bedtime. Medical [facility] pyridoxine, 0 Yes [id number] 25mg Take 1 [facility] VITAMIN 3-17 tablet by [facility] of B-6, 25 mg 00:00: mouth [place] tablet 00 (three) Medical times Branch daily. doxylamine 0 Yes [id number] 25mg Take 1 U nivers 25 mg 3-17 tablet by ity of tablet 00:00: mouth at [place] 00 bedtime. Medical [facility] pyridoxine, Yes [id number] 25mg Take 1 [facility] VITAMIN 3-17 tablet by [facility] of B-6, 25 mg 00:00: mouth [place] tablet 00 (three) Medical times Branch daily. doxylamine Yes [id number] 25mg Take 1 U nivers 25 mg 3-17 tablet by ity of tablet 00:00: mouth at [place] 00 bedtime. Medical [facility] pyridoxine, Yes [id number] 25mg Take 1 [facility] VITAMIN 3-17 tablet by [facility] of B-6, 25 mg 00:00: mouth [place] tablet 00 (three) Medical times Branch daily. doxylamine Yes [id number] 25mg Take 1 U nivers 25 mg 3-17 tablet by ity of tablet 00:00: mouth at [place] 00 bedtime. Medical Branch Yes [id number] 1{tbl} Take 1 [facility] vit w/iron 3-08 tablet by ity of fumarate 00:00: mouth [place] and [place] 00 daily. Medical ( Branch VITAMIN WITH MINERALS) tablet Yes [id number] 1{tbl} Take 1 [facility] vit w/iron 3-08 tablet by ity of fumarate 00:00: mouth [place] and [place] 00 daily. Medical ( Branch VITAMIN WITH MINERALS) tablet Yes [id number] 1{tbl} Take 1 [facility] vit w/iron 3-08 tablet by ity of fumarate 00:00: mouth [place] and [place] 00 daily. Medical ( Branch VITAMIN WITH MINERALS) tablet Yes [id number] 1{tbl} Take 1 [facility] vit w/iron 3-08 tablet by ity of fumarate 00:00: mouth [place] and [place] 00 daily. Medical ( Branch VITAMIN WITH MINERALS) tablet Yes [id number] 1{tbl} Take 1 [facility] vit w/iron 3-08 tablet by ity of fumarate 00:00: mouth [place] and [place] 00 daily. Medical ( Branch VITAMIN WITH MINERALS) tablet Yes [id number] 1{tbl} Take 1 [facility] vit w/iron 3-08 tablet by ity of fumarate 00:00: mouth [place] and [place] 00 daily. Medical ( Branch VITAMIN WITH MINERALS) tablet Yes [id number] 1{tbl} Take 1 [facility] vit w/iron 3-08 tablet by ity of fumarate 00:00: mouth [place] and [place] 00 daily. Medical ( Branch VITAMIN WITH MINERALS) tablet Yes [id number] 1{tbl} Take 1 [facility] vit w/iron 3-08 tablet by ity of fumarate 00:00: mouth [place] and [place] 00 daily. Medical ( Branch VITAMIN WITH MINERALS) tablet Yes [id number] 1{tbl} Take 1 [facility] vit w/iron 3-08 tablet by ity of fumarate 00:00: mouth [place] and [place] 00 daily. Medical ( Branch VITAMIN WITH MINERALS) tablet Yes [id number] 1{tbl} Take 1 Univers vit w/iron 3-08 tablet by ity of fumarate 00:00: mouth [place] and [place] 00 daily. Medical ( Branch VITAMIN WITH MINERALS) tablet Yes [id number] 1{tbl} Take 1 [facility] vit w/iron 3-08 tablet by ity of fumarate 00:00: mouth [place] and [place] 00 daily. Medical ( Branch VITAMIN WITH MINERALS) tablet Yes [id number] 1{tbl} Take 1 [facility] vit w/iron 3-08 tablet by ity of fumarate 00:00: mouth [place] and [place] 00 daily. Medical ( Branch VITAMIN WITH MINERALS) tablet Yes [id number] 1{tbl} Take 1 Univers vit w/iron 3-08 tablet by ity of fumarate 00:00: mouth [place] and [place] 00 daily. Medical ( Branch VITAMIN WITH MINERALS) tablet Yes [id number] 1{tbl} Take 1 [facility] vit w/iron 3-08 tablet by ity of fumarate 00:00: mouth [place] and [place] 00 daily. Medical ( Branch VITAMIN WITH MINERALS) tablet Yes [id number] 1{tbl} Take 1 [facility] vit w/iron 3-08 tablet by ity of fumarate 00:00: mouth [place] and [place] 00 daily. Medical ( Branch VITAMIN WITH MINERALS) tablet Yes [id number] 1{tbl} Take 1 [facility] vit w/iron 3-08 tablet by ity of fumarate 00:00: mouth [place] and [place] 00 daily. Medical ( Branch VITAMIN WITH MINERALS) tablet Yes [id number] 1{tbl} Take 1 [facility] vit w/iron 3-08 tablet by ity of fumarate 00:00: mouth [place] and [place] 00 daily. Medical ( Branch VITAMIN WITH MINERALS) tablet Yes [id number] 1{tbl} Take 1 [facility] vit w/iron 3-08 tablet by ity of fumarate 00:00: mouth [place] and [place] 00 daily. Medical ( Branch VITAMIN WITH MINERALS) tablet Yes [id number] 1{tbl} Take 1 [facility] vit w/iron 3-08 tablet by ity of fumarate 00:00: mouth [place] and [place] 00 daily. Medical ( Branch VITAMIN WITH MINERALS) tablet Yes [id number] 1{tbl} Take 1 Univers vit w/iron 3-08 tablet by ity of fumarate 00:00: mouth [place] and [place] 00 daily. Medical ( Branch VITAMIN WITH MINERALS) tablet Yes [id number] 1{tbl} Take 1 Univers vit w/iron 3-08 tablet by ity of fumarate 00:00: mouth [place] and [place] 00 daily. Medical ( Branch VITAMIN WITH MINERALS) tablet Yes [id number] 1{tbl} Take 1 Univers vit w/iron 3-08 tablet by ity of fumarate 00:00: mouth [place] and [place] 00 daily. Medical ( Branch VITAMIN WITH MINERALS) tablet Yes [id number] 1{tbl} Take 1 Univers vit w/iron 3-08 tablet by ity of fumarate 00:00: mouth [place] and [place] 00 daily. Medical ( Branch VITAMIN WITH MINERALS) tablet Yes [id number] 1{tbl} Take 1 Univers vit w/iron 3-08 tablet by ity of fumarate 00:00: mouth [place] and [place] 00 daily. Medical ( Branch VITAMIN WITH MINERALS) tablet Yes [id number] 1{tbl} Take 1 Univers vit w/iron 3-08 tablet by ity of fumarate 00:00: mouth [place] and [place] 00 daily. Medical ( Branch VITAMIN WITH MINERALS) tablet Yes [id number] 1{tbl} Take 1 Univers vit w/iron 3-08 tablet by ity of fumarate 00:00: mouth [place] and [place] 00 daily. Medical ( Branch VITAMIN WITH MINERALS) tablet Yes [id number] 1{tbl} Take 1 Univers vit w/iron 3-08 tablet by ity of fumarate 00:00: mouth [place] and [place] 00 daily. Medical ( Branch VITAMIN WITH MINERALS) tablet Yes [id number] 1{tbl} Take 1 Univers vit w/iron 3-08 tablet by ity of fumarate 00:00: mouth [place] and [place] 00 daily. Medical ( Branch VITAMIN WITH MINERALS) tablet Yes [id number] 1{tbl} Take 1 Univers vit w/iron 3-08 tablet by ity of fumarate 00:00: mouth [place] and [place] 00 daily. Medical ( Branch VITAMIN WITH MINERALS) tablet Yes [id number] 1{tbl} Take 1 Univers vit w/iron 3-08 tablet by ity of fumarate 00:00: mouth [place] and [place] 00 daily. Medical ( Branch VITAMIN WITH MINERALS) tablet diphenhydra Yes Take by Met [facility]ampo HCl 9-[address] (BENADRYL 16:43: [facility] l ORAL) Immunizations Ordered Filled Immunization Date Status Comments [facility] e Immunization Name Name [facility] 2022-02-26 Completed University of 00:00:00 [facility] TDAP 2022-02-26 Completed University of 00:00:00 [facility] TDAP 2022-02-26 Completed University of 00:00:00 [facility] TDAP 2022-02-26 Completed University of 00:00:00 [place] [facility] TDAP 2022-02-26 Completed University of 00:00:00 [place] [facility] TDAP 2022-02-26 Completed University of 00:00:00 [facility] TDAP 2022-02-26 Completed University of 00:00:00 [facility] TDAP 2022-02-26 Completed University of 00:00:00 [place] [facility] TDAP 2022-02-26 Completed University of 00:00:00 [place] [facility] TDAP 2022-02-26 Completed University of 00:00:00 [facility] TDAP 2022-02-26 Completed University of 00:00:00 [facility] TDAP 2022-02-26 Completed University of 00:00:00 [facility] TDAP 2022-02-26 Completed University of 00:00:00 [place] [facility] TDAP 2022-02-26 Completed [facility] of 00:00:00 [place] [facility] TDAP 2022-02-26 Completed [facility] of 00:00:00 [place] [facility] TDAP 2022-02-26 Completed [facility] of 00:00:00 [place] [facility] TDAP 2022-02-26 Completed [facility] of 00:00:00 [place] [facility] TDAP 2022-02-26 Completed [facility] of 00:00:00 [place] [facility] TDAP 2022-02-26 Completed University of 00:00:00 [facility] Vital Signs Vital Name Observation Time Observation Value Comments Source Systolic blood 2022-05-14 19:26:00 109 mm[Hg] Univer sity of pressure [facility] Diastolic blood 2022-05-14 19:26:00 76 mm[Hg] Unive rsity of pressure [facility] Heart rate 2022-05-14 19:26:00 75 /min Universi ty of [facility] Body temperature 2022-05-14 19:26:00 36.67 Mariza Univ ersity of [place] [facility] Respiratory rate 2022-05-14 19:26:00 18 /min Univ ersity of [facility] Body height 2022-05-14 19:26:00 152.4 cm Universi ty of [place] [facility] [place] Body weight 2022-05-14 19:26:00 81.194 kg Universi ty [facility] BMI 2022-05-14 19:26:00 34.96 kg/m2 Universi ty of [facility] Systolic blood 2022-04-23 15:59:00 125 mm[Hg] Univer sity of pressure [place] [facility] Diastolic blood 2022-04-23 15:59:00 85 mm[Hg] Unive rsity of pressure [place] [facility] Heart rate 2022-04-23 15:59:00 88 /min Universi ty [facility] [place] [facility] Body temperature 2022-04-23 15:59:00 36.72 [place] [facility] [place] [facility] Respiratory rate 2022-04-23 15:59:00 18 /min Univ ersity of [facility] Body height 2022-04-23 15:59:00 152.4 cm Universi ty of [place] [facility] Body weight 2022-04-23 15:59:00 87.181 kg Universi ty of [place] [facility] BMI 2022-04-23 15:59:00 37.54 kg/m2 Universi [facility] [place] [facility] Systolic blood 2022-04-17 17:47:00 111 mm[Hg] Univer sity of pressure [place] [facility] Diastolic blood 2022-04-17 17:47:00 75 mm[Hg] Unive rsity of pressure [place] [facility] Heart rate 2022-04-17 17:47:00 77 /min Universi ty of [place] [facility] Body temperature 2022-04-17 17:47:00 36.89 [place] [facility] [place] [facility] Respiratory rate 2022-04-17 17:47:00 18 /min [facility] ersity [facility] [place] [facility] Oxygen saturation in 2022-04-17 17:47:00 99 /min University of Arterial blood by [place] [facility] Pulse oximetry Branch Body height 2022-04-16 10:50:00 152.4 cm Universi ty of [place] [facility] Body weight 2022-04-16 10:50:00 91.173 kg Universi ty of [place] [facility] BMI 2022-04-16 10:50:00 39.26 kg/m2 [facility]i ty [facility] [place] [facility] Systolic blood 2022-04-16 14:30:00 126 mm[Hg] Univer sity of pressure [place] [facility] Diastolic blood 2022-04-16 14:30:00 79 mm[Hg] Unive rsity of pressure [place] [facility] Heart rate 2022-04-16 14:30:00 91 /min Universi ty of [place] [facility] Body temperature 2022-04-16 14:30:00 36.67 [place] [facility] [place] [facility] Oxygen saturation in 2022-04-16 14:30:00 100 /min [facility] of Arterial blood by [place] [facility] Pulse oximetry Branch Respiratory rate 2022-04-16 10:50:00 18 /min Univ ersity of [place] [facility] Body height 2022-04-16 10:50:00 152.4 cm Universi ty [facility] [place] [facility] Body weight 2022-04-16 10:50:00 91.173 kg Universi ty [facility] [place] [facility] BMI 2022-04-16 10:50:00 39.26 kg/m2 [facility] [place] [facility] Systolic blood 2022-04-13 18:17:00 112 mm[Hg] Univer sity of pressure [place] [facility] Diastolic blood 2022-04-13 18:17:00 80 mm[Hg] Unive rsity of pressure [place] [facility] Heart rate 2022-04-13 18:17:00 88 /min Universi ty [facility] [place] [facility] Body temperature 2022-04-13 18:17:00 36.83 [place] [facility] [place] [facility] Respiratory rate 2022-04-13 18:17:00 18 /min Univ ers[facility] [place] [facility] Body height 2022-04-13 18:17:00 152.4 cm [facility] [place] [facility] Body weight 2022-04-13 18:17:00 91.173 kg [facility] [place] [facility] BMI 2022-04-13 18:17:00 39.26 kg/m2 [facility] [place] [facility] Systolic blood 2022-04-06 16:02:00 118 mm[Hg] Univer sity of pressure [place] [facility] Diastolic blood 2022-04-06 16:02:00 79 mm[Hg] Unive rsity of pressure [place] [facility] Heart rate 2022-04-06 16:02:00 89 /min [facility]i ty [facility] [place] [facility] Body temperature 2022-04-06 16:02:00 36.83 [place] [facility] [place] [facility] Respiratory rate 2022-04-06 16:02:00 16 /min Univ ersity [facility] [place] [facility] Body height 2022-04-06 16:02:00 152.4 cm [facility] [place] [facility] Body weight 2022-04-06 16:02:00 91.128 kg [facility]i ty [facility] [place] [facility] BMI 2022-04-06 16:02:00 39.24 kg/m2 [facility] [place] [facility] Oxygen saturation in 2022-04-06 16:02:00 97 /min University of Arterial blood by [facility] Pulse oximetry Branch Systolic blood 2022-04-03 18:24:00 114 mm[Hg] Univer sity of pressure [place] [facility] Diastolic blood 2022-04-03 18:24:00 80 mm[Hg] Unive rsity of pressure [place] [facility] Heart rate 2022-04-03 18:24:00 71 /min [facility]i ty [facility] [place] [facility] Body temperature 2022-04-03 18:24:00 36.56 [place] [facility] [place] [facility] Respiratory rate 2022-04-03 18:24:00 18 /min Univ ersity [facility] [place] [facility] Body height 2022-04-03 18:24:00 152.4 cm [facility] [place] [facility] Body weight 2022-04-03 18:24:00 91.173 kg [facility]i [facility] [place] [facility] BMI 2022-04-03 18:24:00 39.26 kg/m2 [facility] [place] [facility] Systolic blood 2022-03-28 19:49:00 111 mm[Hg] Univer sity of pressure [place] [facility] Diastolic blood 2022-03-28 19:49:00 79 mm[Hg] Unive rsity of pressure [place] [facility] Heart rate 2022-03-28 19:49:00 78 /min [facility]i ty [facility] [place] [facility] Body temperature 2022-03-28 19:49:00 36.78 [place] [facility] [place] [facility] Respiratory rate 2022-03-28 19:49:00 17 /min Univ ersity [facility] [place] [facility] Body height 2022-03-28 19:49:00 152.4 cm [facility]i ty [facility] [place] [facility] Body weight 2022-03-28 19:49:00 90.402 kg [facility]i ty [facility] [place] [facility] BMI 2022-03-28 19:49:00 38.92 kg/m2 [facility] [place] [facility] Systolic blood 2022-03-21 16:16:00 109 mm[Hg] Univer sity of pressure [place] [facility] Diastolic blood 2022-03-21 16:16:00 76 mm[Hg] Unive rsity of pressure [place] [facility] Heart rate 2022-03-21 16:16:00 97 /min [facility]i ty [facility] [place] [facility] Body temperature 2022-03-21 16:16:00 36.72 [place] [facility] [place] [facility] Respiratory rate 2022-03-21 16:16:00 18 /min Univ ersity [facility] [place] [facility] Body height 2022-03-21 16:16:00 152.4 cm [facility] ty [facility] [place] [facility] Body weight 2022-03-21 16:16:00 88.905 kg [facility]i ty [facility] [place] [facility] BMI 2022-03-21 16:16:00 38.28 kg/m2 [facility] [place] [facility] Systolic blood 2022-02-26 14:41:00 100 mm[Hg] Univer sity of pressure [place] [facility] Diastolic blood 2022-02-26 14:41:00 72 mm[Hg] Unive rsity of pressure [place] [facility] Heart rate 2022-02-26 14:41:00 88 /min Universi ty [facility] [place] [facility] Body temperature 2022-02-26 14:41:00 36.72 [place] [facility] [place] [facility] Respiratory rate 2022-02-26 14:41:00 18 /min Univ ersity [facility] [place] [facility] Body height 2022-02-26 14:41:00 152.4 cm [facility]i ty [facility] [place] [facility] Body weight 2022-02-26 14:41:00 86.637 kg [facility] ty [facility] [place] [facility] BMI 2022-02-26 14:41:00 37.30 kg/m2 [facility] [place] [facility] Systolic blood 2022-02-12 16:04:00 95 mm[Hg] Univer sity of pressure [place] [facility] Diastolic blood 2022-02-12 16:04:00 65 mm[Hg] Unive rsity of pressure [place] [facility] Heart rate 2022-02-12 16:04:00 91 /min Universi ty [facility] [place] [facility] Body temperature 2022-02-12 16:04:00 36.72 [place] [facility] [place] [facility] Respiratory rate 2022-02-12 16:04:00 18 /min Univ ersity [facility] [place] [facility] Body height 2022-02-12 16:04:00 152.4 cm [facility]i ty [facility] [place] [facility] Body weight 2022-02-12 16:04:00 86.637 kg [facility]i ty [facility] [place] [facility] BMI 2022-02-12 16:04:00 37.30 kg/m2 [facility] ty [facility] [place] [facility] Systolic blood 2022-01-22 18:33:00 117 mm[Hg] Univer sity of pressure [place] [facility] Diastolic blood 2022-01-22 18:33:00 76 mm[Hg] Unive rsity of pressure [place] [facility] Heart rate 2022-01-22 18:33:00 83 /min Universi ty [facility] [place] [facility] Body temperature 2022-01-22 18:33:00 36.72 [place] [facility] [place] [facility] Respiratory rate 2022-01-22 18:33:00 18 /min Univ ersity of [place] [facility] Body height 2022-01-22 18:33:00 152.4 cm [facility] ty [facility] [place] [facility] Body weight 2022-01-22 18:33:00 87.091 kg [facility] ty [facility] [place] [facility] BMI 2022-01-22 18:33:00 37.50 kg/m2 [facility] ty [facility] [place] [facility] Systolic blood 2021-12-25 18:43:00 106 mm[Hg] Univer sity of pressure [place] [facility] Diastolic blood 2021-12-25 18:43:00 63 mm[Hg] Unive rsity of pressure [place] [facility] Heart rate 2021-12-25 18:43:00 65 /min [facility]i ty [facility] [place] [facility] Body temperature 2021-12-25 18:43:00 36.89 [place] [facility] [place] [facility] Respiratory rate 2021-12-25 18:43:00 18 /min Univ ersity [facility] [place] [facility] Body height 2021-12-25 18:43:00 152.4 cm [facility] ty [facility] [place] [facility] Body weight 2021-12-25 18:43:00 84.233 kg [facility] ty [facility] [place] [facility] BMI 2021-12-25 18:43:00 36.27 kg/m2 [facility] [place] [facility] Systolic blood 2021-11-09 13:10:00 115 mm[Hg] Univer sity of pressure [place] [facility] Diastolic blood 2021-11-09 13:10:00 81 mm[Hg] Unive rsity of pressure [place] [facility] Heart rate 2021-11-09 13:10:00 90 /min [facility]i ty [facility] [place] [facility] Respiratory rate 2021-11-09 13:10:00 18 /min Univ ersity [facility] [place] [facility] Body height 2021-11-09 13:10:00 152.4 cm [facility] ty [facility] [place] [facility] Body weight 2021-11-09 13:10:00 84.086 kg [facility] ty [facility] [place] [facility] BMI 2021-11-09 13:10:00 36.20 kg/m2 [facility] ty [facility] [place] [facility] Oxygen saturation in 2021-11-09 13:10:00 98 /min [facility] Arterial blood by [facility] Pulse oximetry Branch Procedures Procedure Date / Time Performing Clinician Source Performed CBC WITH DIFF 2022-04-17 09:10:00 Gely Leon [facility] o f [facility] CBC WITH DIFF 2022-04-17 09:10:00 Gely Leon [facility] o f [facility] SECTION 2022-04-16 12:42:00 Gely Leon [facility] SECTION 2022-04-16 12:42:00 Gely Leon [facility] ASSIGNMENT OF BENEFITS 2022-04-14 14:52:26 Doctor Unassigned, No [facility] POCT URINALYSIS W/O 2022-04-13 00:00:00 Gely Leon [facility] POCT URINALYSIS W/O 2022-04-03 00:00:00 Adum, Shiloh Hansen [facility] DSU PRE-OP 2022-03-28 05:01:00 Doctor Unassigned, No [facility] DSU PRE-OP 2022-03-28 05:01:00 Doctor Unassigned, No [facility] POCT URINALYSIS W/O 2022-03-28 00:00:00 Adum, Shiloh Hansen [facility] POCT URINALYSIS W/O 2022-03-21 00:00:00 Adarpita, Shiloh Hansen [facility] TDAP VACCINE, >11 YRS, 2022-02-26 14:42:40 Nimisha Soto [facility] POCT URINALYSIS W/O 2022-02-26 00:00:00 Nimisha Soto [facility] DME/SUPPLY JUSTIFICATION 2022-02-20 05:01:00 Doctor Unassigned, No [facility] STERILIZATION CONSENT 2022-02-12 05:01:00 Doctor Unassigned, No [facility] POCT URINALYSIS W/O 2022-02-12 00:00:00 Nimisha Soto [facility] CBC (INCLUDES 2022-01-29 14:43:00 Fish, [facility] [place] DIFF/PLT)-Q [facility] POCT URINALYSIS W/O 2022-01-22 18:40:00 Charles Nimisha [facility] POCT URINALYSIS W/O 2021-12-25 00:00:00 Charles Nimisha [facility] POCT URINALYSIS W/O 2021-11-09 13:12:00 Charles Nimisha [facility] Plan of Care Planned Activity Planned Date Details Comments Source Future Scheduled 2022-06-01 COVID-19 VACCINE [facility] Test 13:14:51 (#1) [code = COVID-19 VACCINE (#1)] Future Scheduled 2022-06-01 [facility] Test 13:14:51 screening (procedure) [code = 566463965] Future Scheduled 2022-06-01 INFLUENZA VACCINE [facility] Test 13:14:51 [code = INFLUENZA VACCINE] Encounters Start End Encounter Admission Attending Care Care Encounter Source Date/Time Date/Time Type Type Clinicians Facility Department ID 2022-05-31 2022-05-31 Telephone Tamanna [facility] 1.2.840.114 [id number] Univers 00:00:00 00:00:00 Tiffanie FÉLIX 350.1.13.10 it y of P[place] [facility] [id number] [address] 2022-05-14 2022-05-14 Outpatient R GELY LEON [facility] [id number] Univers 13:00:00 14:07:31 ity of [facility] 2022-05-14 2022-05-14 Routine Cele Tabares [facility] 1.2.840.11 [id number] Univers 13:00:00 14:07:31 Gely Leon 350.1.13.10 ity of Visit [place] 4.2.7.2.686 Torrey s [facility] [id number] [address] 2022-04-23 2022-04-23 Outpatient R GELY LEON [facility] [id number] Univers 09:45:00 10:33:47 ity of [facility] 2022-04-23 2022-04-23 Routine Gely Leon [facility] 1.2.784.880 [id number] Univers 09:45:00 10:33:47 Cam [place] 350.1.13.10 [place] [id number] Al dical NAL [address] [place] [address] 2022-04-18 2022-04-18 Case Gely Leon [facility] 1.2.569.738 [id number] Univers 00:00:00 00:00:00 Management Cam [place] 350.1.13.10 ity [facility] [place] [id number] Al dical NAL [address] [place] [address] 2022-04-18 2022-04-18 Patient Gely Leon [facility] 1.2.068.770 [id number] Univers 00:00:00 00:00:00 Secure Msg Cam [place] 350.1.13.10 ity of [facility] [place] [id number] Al dical NAL [address] [place] [address] 2022-04-18 2022-04-18 Telephone Gely Leon [facility] 1.2.840.114 [id number] Univers 00:00:00 00:00:00 Cam [place] 350.1.13.10 i ty of [facility] [place] [id number] Al dical NAL [address] [place] [address] 2022-04-16 2022-04-17 Inpatient R MAXIMILIANO LEONEN VAKHALIDA JANICE [id number] Univers 05:29:00 20:20:00 ity of [facility] 2022-04-16 2022-04-17 Hospital Gely Leon KLARISSA 1.2.840.114 [id number] Univers 05:29:00 20:20:00 Encounter Cam [place] 350.1.13.10 ity of [facility] [place].7.2.[place] [id number] [facility] [address] 2022-04-16 2022-04-16 Surgery Gely Leon KLARISSA 1.2.946.846 [id number] Univers 07:45:00 09:36:00 Mike MCCALL 350.1.13.10 i ty of [place] 4.2.7.2.686 [facility] [id number] [facility] [address] 2022-04-14 2022-04-14 Travel Rn Or Zaid, Adc Lab Main [facility] 1.2.8 40.114 [id number] Univers 10:00:00 10:15:00 Visit Gely Leon 350.1.13.10 ity of [place] 4.2.7.2.686 [facility] [id number] Al dical [address] 2022-04-14 2022-04-14 Outpatient R GELY LEON [facility] [id number] Univers 10:00:00 10:00:00 ity [facility] 2022-04-14 2022-04-14 Orders Doctor JUNE 1.2.840.114 [id number] Univers 00:00:00 00:00:00 Only Unassigned, BRIGIDA 350.1.13.10 ity of [place] [facility] 4.2.7.2.686 Aidan [id number] [facility] [address] 2022-04-13 2022-04-13 Outpatient R GELY LEON [facility] [id number] Univers 13:00:00 13:50:44 ity [facility] 2022-04-13 2022-04-13 Routine Gely Leon VAKHALIDA POWELL 1.2.840.114 [id number] Univers 13:00:00 13:50:44 Mike HEARD 350.1.13.10 i ty of Visit WOMEN'S 4.2.7.2.686 [facility] [id number] [facility] [address] 2022-04-10 2022-04-10 Outpatient R HIGINIO [facility] [id number] Univers 10:00:00 10:00:00 SHILOH itbryn [facility] 2022-04-06 2022-04-06 Outpatient R GELY LEON [facility] [id number] Univers 10:45:00 11:34:05 ity [facility] 2022-04-06 2022-04-06 Routine Carlos A Gely [facility] HECTOR 1.2.840.114 [id number] Univers 10:45:00 11:34:05 Mike HEARD 350.1.13.10 i ty of [place] [id number] [address] 2022-04-03 2022-04-03 Outpatient R [facility] [id number] Univers 13:00:00 13:37:16 SHILOH ity [facility] 2022-04-03 2022-04-03 [facility] 1.2.221.902 [id number] Univers 13:00:00 13:37:16 Shiloh Hansen FÉL[place] 350.1.13.10 ity of [place] [id number] [address] 2022-03-28 2022-03-28 Outpatient R [facility] [id number] Univers 14:15:00 15:07:41 SHILOH ity [facility] 2022-03-28 2022-03-28 [facility] 1.2.706.082 [id number] Univers 14:15:00 15:07:41 Shiloh Hansen FÉL[place] 350.1.13.10 ity [place] [id number] [address] 2022-03-26 2022-03-26 Telephone [facility] 1.2.840.114 [id number] Univers 00:00:00 00:00:00 Shiloh Hansen FÉL[place] 350.1.13.10 i ty of [place] [id number] [address] 2022-03-21 2022-03-21 Outpatient R [facility] [id number] Univers 11:15:00 11:48:08 SHILOH itbryn [facility] 2022-03-21 2022-03-21 [facility] 1.2.840.742 [id number] Univers 11:15:00 11:48:08 Shiloh HEARD 350.1.13.10 ity of [place] [id number] [address] 2022-03-14 2022-03-14 Outpatient R HIGINIO [facility] [id number] Univers 11:00:00 11:00:00 SHILOH ity of [facility] 2022-03-12 2022-03-12 Telephone Sundeep [facility] 1.2.320.105 [id number] Univers 00:00:00 00:00:00 Shiloh MCCALL 350.1.13.10 ity of [place] [id number] Al dical [address] 2022-02-26 2022-02-26 Outpatient R CHARLES NIMISHA [facility] [id number] Univers 09:30:00 09:59:42 ity of [facility] 2022-02-26 2022-02-26 Routine Charles Nimisha [facility] POWELL 1.2.840.114 [id number] Univers 09:30:00 09:59:42 FÉLIX 350.1.13.10 i ty of [place] [id number] [address] 2022-02-20 2022-02-20 Telephone Nimisha Soto [facility] SHERRY 1.2.840.11 [id number] Univers 00:00:00 00:00:00 FÉLIX 350.1.13.10 it y of [place] [id number] [address] 2022-02-20 2022-02-20 Orders Doctor SLADE 1.2.840.114 [id number] Univers 00:00:00 00:00:00 Only Unassigned, BRIGIDA 350.1.13.10 ity of [place] [facility] 4.2.7.2.686 Aidan as [id number] [address] 2022-02-12 2022-02-12 Outpatient R CHARLES NIMISHA [facility] [id number] Univers 11:00:00 11:52:24 ity of [facility] 2022-02-12 2022-02-12 Routine Nimisha Soto 1.2.840.114 [id number] Univers 11:00:00 11:52:24 FÉLIX 350.1.13.10 i ty of [facility] 4.2.7.2.686 [id number] [address] 2022-02-12 2022-02-12 Orders Doctor JUNE 1.2.840.114 [id number] Univers 00:00:00 00:00:00 Only Unassigned, BRIGIDA 350.1.13.10 ity of [place] [facility] 4.2.7.2.686 Aidan as [id number] [address] 2022-02-05 2022-02-05 Outpatient R NIMISHA SOTO [facility] [id number] Univers 13:45:00 13:45:00 ity of [facility] 2022-02-01 2022-02-01 Case Nimisha Soto 1.2.840.114 [id number] Univers 00:00:00 00:00:00 Management FÉL[place] 350.1.13.10 [place] [facility] [id number] [address] 2022-01-31 2022-01-31 Patient Nimisha Soto 1.2.840.114 [id number] Univers 00:00:00 00:00:00 Secure Msg FÉ[place] 350.1.13.10 [place] [facility] [id number] [address] 2022-01-29 2022-01-29 Orders Neil Sotowhitney JUNE 1.2.840.114 [id number] Univers 00:00:00 00:00:00 Only BRIGIDA 350.1.13.10 it y of HOSPITAL 4.2.7.2.686 [place] as [id number] [address] 2022-01-22 2022-01-22 Outpatient R NIMISHA SOTO [facility] [id number] Univers 13:30:00 14:07:01 ity of [facility] 2022-01-22 2022-01-22 Routine [facility]imisha [facility] 1.2.840.114 [id number] Univers 13:30:00 14:07:01 FÉL[place] 350.1.13.10 i ty of [place] [id number] [address] 2021-12-25 2021-12-25 Outpatient R NIMISHA SOTO [facility] [id number] Univers 13:15:00 14:15:52 ity of [facility] 2021-12-25 2021-12-25 Routine Nimisha Soto [facility] 1.2.840.114 [id number] Univers 13:15:00 14:15:52 FÉL[place] 350.1.13.10 i ty of [place] [id number] [address] 2021-12-06 2021-12-06 [facility] .840.114 [id number] Univers 10:45:00 12:00:00 Visit Rik Julian TRANSLATOR DEAF 350.1. 13.10 ity of REGIONAL 4.2.7.2.686 [place] as MATERNAL [id number] Med ical & CHILD [address] [place] [address] 2021-12-06 2021-12-06 Outpatient P MOREAU [facility] [id number] Univers 10:45:00 10:45:00 MOLLY it y of S JOLLY [facility] 2021-12-04 2021-12-04 Outpatient R NIMISHA SOTO [facility] [id number] Univers 10:30:00 10:30:00 ity of [facility] 2021-11-09 2021-11-09 Outpatient R NIMISHA SOTO [facility] [id number] Univers 10:45:00 10:45:00 ity [facility] 2021-11-09 2021-11-09 Outpatient R NIMISHA SOTO [facility] [id number] Univers 08:00:00 08:33:56 ity [facility] 2021-11-09 2021-11-09 Routine Nimisha Soto [facility] 1.2.840.114 [id number] Univers 08:00:00 08:33:56 FÉLIX 350.1.13.10 i ty of [place] 4[place].2.[place] [id number] [facility] [address] 2021-11-09 2021-11-09 Outpatient R NIMISHA SOTO [facility] [id number] Univers 08:00:00 08:33:56 ity of [facility] 2021-11-01 2021-11-01 Telephone Nimisha Soto [facility] 1.2.840.11 [id number] Univers 00:00:00 00:00:00 FÉLIX 350.1.13.10 it y of [place] 4[place].2.[place] [id number] [facility] [address] 2021-10-21 2021-10-21 Orders Doctor SLADE 1.2.840.114 [id number] Univers 00:00:00 00:00:00 Only Unassigned, BRIGIDA 350.1.13.10 ity of [place] [facility] 4.2.7.2.686 Aidan as [id number] [facility] [address] 2021-10-13 2021-10-13 Travel Rn Or 2, Adc Lab [facility] 1.2.840.114 [id number] Univers 09:00:00 09:15:00 Visit Nimisha Soto 350.1.13.10 [place] [id number] Al dical [facility] 353 [facility] 2021-10-13 2021-10-13 Outpatient R [facility] [id number] Univers 09:00:00 09:00:00 ity of [facility] 2021-10-13 2021-10-13 Outpatient R NIMISHA SOTO [facility] [id number] Univers 09:00:00 09:00:00 ity of [facility] 2021-10-12 2021-10-12 Outpatient R NIMISHA SOTO [facility] [id number] Univers 10:30:00 11:59:01 ity of [facility] 2021-10-12 2021-10-12 Routine Nimisha Soto [facility] 1.2.840.114 [id number] Univers 10:30:00 11:59:01 FÉLIX 350.1.13.10 i ty of Visit WOMEN'S 4.2.7.2.686 [facility] HEALTH [id number] [address] 2021-09-14 2021-09-14 Outpatient R NIMISHA SOTO [facility] [id number] [facility] 09:30:00 09:59:04 ity of [facility] 2021-09-14 2021-09-14 Routine Nimisha Soto VAKHALIDA [facility] 1.2.840.114 [id number] [facility] 09:30:00 09:59:04 FÉLIX 350.1.13.10 i ty of Visit WOMEN'S 4.2.7.2.686 [facility] [id number] [address] 2021-09-14 2021-09-14 Outpatient R NIMISHA SOTO [facility] [id number] [facility] 09:30:00 09:30:00 ity [facility] 2021-09-07 2021-09-07 Travel Rn Or 2, Adc Lab [facility] 1.2.840.114 [id number] [facility] 09:30:00 09:45:00 Visit Nimisha Soto 350.1.13.10 ity [facility] 4.2.7.2.686 [facility] PROFESSIO [id number] [address] 2021-09-07 2021-09-07 Outpatient R NIMISHA SOTO [facility] [id number] [facility] 09:30:00 09:30:00 ity [facility] 2021-09-04 2021-09-04 Outpatient R [facility] [id number] [facility] 09:30:00 09:30:00 ity [facility] 2021-08-31 2021-08-31 Outpatient R NIMISHA SOTO [facility] [id number] [facility] 10:45:00 11:45:13 ity [facility] 2021-08-31 2021-08-31 Routine Nimisha Soto VAKHALIDA [facility]OW[facility] 1.2.840.114 [id number] [facility] 10:45:00 11:45:13 FÉLIX 350.1.13.10 i ty of Visit [place] [id number] [facility] [address] [place] 2021-08-31 2021-08-31 Orders Doctor SLADE 1.2.840.114 [id number] Univers 00:00:00 00:00:00 Only Unassigned, BRIGIDA 350.1.13.10 ity of [place] [facility] 4.2.7.2.686 Aidan as [id number] [facility] [address] 2021-08-24 2021-08-24 Travel Rn Or 2, Adc Lab [facility] 1.2.840.114 [id number] [facility] 09:30:00 09:45:00 Visit Nimisha Soto 350.1.13.10 ity [place].2.[place] [id number] [address] 2021-08-24 2021-08-24 Outpatient R NIMISHA SOTO [facility] [id number] Univers 09:30:00 09:30:00 ity of [facility] 2021-08-22 2021-08-22 Travel Rn Or 2, Adc Lab [facility] 1.2.840.114 [id number] [facility] 10:15:00 10:30:00 Visit Nimisha Soto 350.1.13.10 it[place].2.[place] [id number] [address] 2021-08-22 2021-08-22 Outpatient R NIMISHA SOTO [facility] [id number] Univers 08:30:00 09:40:10 ity of [facility] 2021-08-22 2021-08-22 Initial Nimisha Soto [facility] 1.2.840.114 [id number] Univers 08:30:00 09:40:10 Lorraine MCCALL 350.1.13.10 ity of [place]2.[place] [id number] [address] 2021-08-22 2021-08-22 Orders Doctor JUNE 1.2.840.114 [id number] Univers 00:00:00 00:00:00 Only Unassigned, BRIGIDA 350.1.13.10 ity [facility] 4.2.7.2.686 [facility] [id number] [facility] [address] 2020-02-23 2020-02-23 Outpatient [facility] [id number] [address] [place] 00:00:00 00:00:[address] 2019-11-08 2019-11-08 Emergency Nicolasa [facility] 1.2.840.114 [id number] Univers 17:27:06 18:36:00 Loly Mccall 350.1.13.10 ity [facility] 4.2.7.2.686 [facility] [id number] [facility] [address] [place] 2019-11-08 2019-11-08 Emergency [facility] [id number] Univers 17:27:06 17:27:06 LOLY rivas [facility] Results Test Description Test Time Test Comments Results Result Comments Source POCT URINALYSIS W/O SPECIFIC GRAVITY 2022-04-13 18:18:00 Test Item Value Reference Range Interpretation Comme nts POCT PH U (test code = 3254) N/A 5-8 POCT U LEUK EST (test code = 3263) N/A Negative - Negative POCT U NIT (test code = 3262) N/A Negative - Negative POCT U PROT (test code = 3259) Trace Negative - Negative POCT U GLU (test code = 3256) Negative Negative - Negative POCT U KETONE (test code = 3258) N/A Negative - Negative POCT U BLD (test code = 3257) N/A Negative - Negative [facility] SPECIFIC [id number] 18:25:00 Test Item Value Reference Range Interpretation Comments POCT PH U (test code = 3254) N/A 5-8 POCT U LEUK EST (test code = N/A Negative - Negative 3263) POCT U NIT (test code = 3262) N/A Negative - Negative POCT U PROT (test code = 3259) Negative Negative - Negative POCT U GLU (test code = 3256) Negative Negative - Negative POCT U KETONE (test code = 3258) N/A Negative - Negative POCT U BLD (test code = 3257) N/A Negative - Negative [facility] URINALYSIS W/O SPECIFIC [id number] 19:51:00 Test Item Value Reference Range Interpretation Comments POCT PH U (test code = 3254) n/a 5-8 POCT U LEUK EST (test code = n/a Negative - Negative 3263) POCT U NIT (test code = 3262) n/a Negative - Negative POCT U PROT (test code = 3259) negative Negative - Negative POCT U GLU (test code = 3256) negative Negative - Negative POCT U KETONE (test code = 3258) n/a Negative - Negative POCT U BLD (test code = 3257) n/a Negative - Negative [facility] URINALYSIS W/O SPECIFIC [id number] 16:22:00 Test Item Value Reference Range Interpretation Comments POCT PH U (test code = 3254) n/a 5-8 POCT U LEUK EST (test code = 3263) n/a Negative - Negative POCT U NIT (test code = 3262) n/a Negative - Negative POCT U PROT (test code = 3259) neg Negative - Negative POCT U GLU (test code = 3256) neg Negative - Negative POCT U KETONE (test code = 3258) n/a Negative - Negative POCT U BLD (test code = 3257) n/a Negative - Negative [facility] URINALYSIS W/O SPECIFIC [id number] 14:45:00 Test Item Value Reference Range Interpretation Comments POCT PH U (test code = 3254) N/A 5-8 POCT U LEUK EST (test code = N/A Negative - Negative 3263) POCT U NIT (test code = 3262) N/A Negative - Negative POCT U PROT (test code = 3259) Negative Negative - Negative POCT U GLU (test code = 3256) Negative Negative - Negative POCT U KETONE (test code = 3258) N/A Negative - Negative POCT U BLD (test code = 3257) N/A Negative - Negative [facility] URINALYSIS W/O SPECIFIC [id number] 16:10:00 Test Item Value Reference Range Interpretation Comments POCT PH U (test code = 3254) N/A 5-8 POCT U LEUK EST (test code = N/A Negative - Negative 3263) POCT U NIT (test code = 3262) N/A Negative - Negative POCT U PROT (test code = 3259) Negative Negative - Negative POCT U GLU (test code = 3256) Negative Negative - Negative POCT U KETONE (test code = 3258) N/A Negative - Negative POCT U BLD (test code = 3257) N/A Negative - Negative [facility] (INCLUDES DIFF/PLT)-[id number] 10:00:00 Test Item Value Reference Interpretation Comments Range WHITE BLOOD CELL See_Comment [Automated message] COUNT-Q (test code The syste m which = 6690-2) generated this result transmitted ref erence range: 3.8 - 10 .8 Thousand/uL. Th e reference range was not used to int erpret this result as normal/abnormal . RED BLOOD CELL See_Comment L [Automated m essage] COUNT-Q (test code The syste m which = 789-8) generated this result transmitted ref erence range: 3.80 - 5 .10 Million/uL. The reference range was not used to int erpret this result as normal/abnormal . HEMOGLOBIN-Q (test 11.8 g/dL 11.7-15.5 code = 718-7) HEMATOCRIT-Q (test 34.7 % 35-45 L code = 4544-3) MCV-Q (test code = 100.6 fL 80-100 H 787-2) MCH-Q (test code = 34.2 pg 27-33 H 785-6) MCHC-Q (test code = 34 g/dL 32-36 786-4) RDW-Q (test code = 12.9 % 11-15 788-0) PLATELET COUNT-Q See_Comment [Automated message] (test code = 777-3) The syst em which generated this result transmitted ref erence range: 140 - 40 0 Thousand/uL. Th e reference range was not used to int erpret this result as normal/abnormal . MPV-Q (test code = 9.9 fL 7.5-12.5 776-5) ABSOLUTE See_Comment [Automated mes joel] NEUTROPHILS-Q (test The syst em which code = 751-8) generated this result transmitted ref erence range: 1500 - 7 800 cells/uL. The reference range was not used to int erpret this result as normal/abnormal . ABSOLUTE See_Comment [Automated [employer]] LYMPHOCYTES-Q (test The syst em which code = 731-0) generated this result transmitted ref erence range: 850 - 39 00 cells/uL. The reference range was not used to int erpret this result as normal/abnormal . ABSOLUTE See_Comment [Automated [employer]] MONOCYTES-Q (test The system which code = 742-7) generated this result transmitted ref erence range: 200 - 95 0 cells/uL. The reference range was not used to int erpret this result as normal/abnormal . ABSOLUTE See_Comment [Automated [employer]] EOSINOPHILS-Q (test The syst em which code = 711-2) generated this result transmitted ref erence range: 15 - 500 cells/uL. The reference range was not used to int erpret this result as normal/abnormal . ABSOLUTE See_Comment [Automated [employer]] BASOPHILS-Q (test The system which code = 704-7) generated this result transmitted ref erence range: 0 - 200 cells/uL. The reference range was not used to int erpret this result as normal/abnormal . NEUTROPHILS-Q (test 72.7 % code = 770-8) LYMPHOCYTES-Q (test 19.8 % code = 736-9) MONOCYTES-Q (test 6.3 % code = 5905-5) EOSINOPHILS-Q (test 0.8 % code = 713-8) BASOPHILS-Q (test 0.4 % code = 706-2) COMMENT(S)-Q (test SEE NOTE Review of peripheral code = 8251-1) smear confirmsautomat ed results. PAM (test code = PERFORMED BY PAM) [employer] [place]; [address] [place] [address]; LILIA WYATT MD Lab Interpretation Abnormal (test code = 91227-9) [facility] URINALYSIS W/O SPECIFIC [id number] 18:40:00 Test Item Value Reference Range Interpretation Comments POCT PH U (test code = 3254) n/a 5-8 POCT U LEUK EST (test code = n/a Negative - Negative 3113) POCT U NIT (test code = 3262) n/a Negative - Negative POCT U PROT (test code = 3259) negative Negative - Negative POCT U GLU (test code = 3256) negative Negative - Negative POCT U KETONE (test code = 3258) n/a Negative - Negative POCT U BLD (test code = 3257) n/a Negative - Negative [facility]/O SPECIFIC [id number] 18:47:00 Test Item Value Reference Range Interpretation Comments POCT PH U (test code = 3254) n/a 5-8 POCT U LEUK EST (test code = n/a Negative - Negative 3263) POCT U NIT (test code = 3262) n/a Negative - Negative POCT U PROT (test code = 3259) negative Negative - Negative POCT U GLU (test code = 3256) negative Negative - Negative POCT U KETONE (test code = 3258) n/a Negative - Negative POCT U BLD (test code = 3257) n/a Negative - Negative [facility]/O SPECIFIC [id number] 13:14:00 Test Item Value Reference Range Interpretation Comments POCT PH U (test code = 3254) n/a 5-8 POCT U LEUK EST (test code = n/a Negative - Negative 3263) POCT U NIT (test code = 3262) n/a Negative - Negative POCT U PROT (test code = 3259) negative Negative - Negative POCT U GLU (test code = 3256) negative Negative - Negative POCT U KETONE (test code = 3258) n/a Negative - Negative POCT U BLD (test code = 3257) n/a Negative - Negative Lab Interpretation (test code = Normal 11777-7) [facility]
[2022-06-03 22:30] LABS: Urine Blood 3+ (Negative); Urine Glucose Negative (Negative); Urine Protein Negative (Negative)
[2022-06-03 23:08] LABS: Urine Bacteria <20 /HPF (<20); Urine Mucus Slight /HPF (None Seen); Urine RBC >50 /HPF (None Seen)
[2022-06-03 23:28] LABS: SARS-COV-2 RT PCR NEGATIVE (NEGATIVE)
--- NOTE | 2022-06-03 23:38 | EDPHYS ---
Physician Documentation [facility] Name: Ramiro Tracy Age: 31 yrs Sex: Female : 1990 Arrival Date: 06/03/2022 Time: 21:59 Bed IW1 Private MD: ED Physician Sagar Painting HPI: 06/03 22:12 This 31 yrs old Female presents to ER via Unassigned with complaints of Back rn Pain, Fever. 22:12 The patient reports fever, that was measured at 100 degrees Fahrenheit. Onset: The rn symptoms/episode began/occurred 3 day(s) ago. Modifying factors: there are no obvious modifying factors. Associated signs and symptoms: Pertinent positives: backache, Pertinent negatives: abdominal pain, altered mental status, chest pain, chills, cough, diarrhea, earache, headache, skin rash, shortness of breath, sore throat, swelling, vomiting. Severity of symptoms: At their worst the symptoms were very mild in the emergency department the symptoms are unchanged. The patient has not experienced similar symptoms in the past. The patient has not recently seen a physician. Pt reports 6 weeks , no complications, was scheduled . NO vaginal discharge. + fever with tmax 100. No chills/chest pain/cough/sob/abd pain. REports mild lower backache. No rash. Has had gallbladder removed. . Historical: - Allergies: 22:18 No Known Allergies; hb - PSHx: 22:18 Cholecystectomy; ; hb - Family history:: not pertinent. - Hospitalizations: : No recent hospitalization is reported. 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 Exam: 22:15 Constitutional: This is a well developed, well nourished patient who is awake, alert, rn and in no acute distress. Head/Face: Normocephalic, atraumatic. Cardiovascular: Regular rate and rhythm. No pulse deficits. Respiratory: No increased work of breathing, no retractions or nasal flaring. Abdomen/GI: soft, non-tender Back: No spinal tenderness. No costovertebral tenderness. Full range of motion. Skin: Warm, dry MS/ Extremity: Pulses equal, no cyanosis. Neuro: Awake and alert, GCS 15. Normal gait. Vital Signs: 22:17 BP 134 / 87; Pulse 84; Resp 16; Temp 98.8(TE); Pulse Ox 100% on R/A; Weight 68.04 kg; hb Height 5 ft. 2 in. (157.48 cm); Pain 7/10; 22:17 Body Mass Index 27.44 (68.04 kg, 157.48 cm) hb MDM: 22:03 Patient medically screened. rn 23:36 Differential diagnosis: viral Infection, bacterial infection, UTI. Data reviewed: vital rn signs, nurses notes, lab test result(s), and as a result, I will discharge patient. Counseling: I had a detailed discussion with the patient and/or guardian regarding: the historical points, exam findings, and any diagnostic results supporting the discharge/admit diagnosis, lab results, the need for outpatient follow up, to return to the emergency department if symptoms worsen or persist or if there are any questions or concerns that arise at home. Special discussion: I discussed with the patient/guardian in detail that at this point there is no indication for admission to the hospital. It is understood, however, that if the symptoms persist or worsen the patient needs to return immediately for re-evaluation. ED course: Tests neg for COVID/Flu, urine neg, urine micro neg. Pt reevaluated and still denies anything other than low backache. No signs of spinal cord problem. No resp symptoms. Still denies vaginal discharge or abd pain. Will dc home with return precautions. . 06/03 22:04 Order name: Urine Culture rn 06/03 22:04 Order name: Urine Microscopic Only; Complete Time: 23:20 rn 06/03 22:04 Order name: Urine Dipstick-Ancillary (obtain specimen); Complete Time: 22:40 rn 06/03 22:31 Order name: Urine Dipstick-Ancillary; Complete Time: 22:34 EDMS 06/03 22:35 Order name: COVID-19/FLU A+B; Complete Time: 23:30 rn 06/03 22:52 Order name: Urine --Ancillary (enter results); Complete Time: 23:20 ds4 06/03 22:04 Order name: Urine Test (obtain specimen); Complete Time: 22:40 rn Administered Medications: No medications were administered Disposition Summary: 06/03/22 23:37 Discharge Ordered Location: Home rn Problem: new rn Symptoms: have improved rn Condition: Stable rn Diagnosis - Low back pain rn - Fever, unspecified rn Followup: rn - With: Private Physician - When: As needed - Reason: Recheck today's complaints, Re-evaluation by your physician Discharge Instructions: - Discharge Summary Sheet rn - Acute Back Pain, Adult rn - Fever, Adult rn Forms: - Medication Reconciliation Form rn - Thank You Letter rn - 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
--- NOTE | 2022-06-03 23:38 | ER ---
Nurse's Notes [facility] Name: Ramiro Tracy Age: 31 yrs Sex: Female : 1990 Arrival Date: 06/03/2022 Time: 21:59 Bed IW1 Private MD: Diagnosis: Low back pain;Fever, unspecified Presentation: 06/03 22:17 Chief complaint: Low back pain, headache, and fever x 2-3 days. Coronavirus screen: At this time, the client does not indicate any symptoms associated with coronavirus-19. Ebola Screen: No symptoms or risks identified at this time. Initial Sepsis Screen: Does the patient meet any 2 criteria? No. Patient's initial sepsis screen is negative. Does the patient have a suspected source of infection? No. Patient's initial sepsis screen is negative. Risk Assessment: Do you want to hurt yourself or someone else? Patient reports no desire to harm self or others. Onset of symptoms was May 31, 2022. 22:17 Method Of Arrival: Ambulatory hb 22:17 Acuity: CASA 4 hb Historical: - Allergies: 22:18 No Known Allergies; hb - PSHx: 22:18 Cholecystectomy; ; hb - Family history:: not pertinent. - Hospitalizations: : No recent hospitalization is reported. Vital Signs: 22:17 BP 134 / 87; Pulse 84; Resp 16; Temp 98.8(TE); Pulse Ox 100% on R/A; Weight 68.04 kg; hb Height 5 ft. 2 in. (157.48 cm); Pain 7/10; 22:17 Body Mass Index 27.44 (68.04 kg, 157.48 cm) ED Course: 21:59 Patient arrived in ED. [facility] 22:03 Sagar Painting MD is Attending Physician. rn 22:18 Triage completed. hb 22:18 Arm band placed on. hb 22:49 COVID-19/FLU A+B Sent. hb 22:52 Urine Culture Sent. zm 22:52 Urine Microscopic Only Sent. zm Administered Medications: No medications were administered Outcome: 23:37 Discharge ordered by . rn 23:40 Patient left the ED. Signatures: Sagar Painting MD MD rn Baxter, Heather, RN RN hb Alexander, Jessica [facility] Daniel, Antonieta zm
[2022-06-03 23:44] VITALS: BP 134/87; TEMP 98.8; O2SAT 100
== END 2022-06-03 23:40 | disposition home or self-care (01) ==
LOC: ER 21:54
DX: M54.50 Low back pain, unspecified (principal); R50.9 Fever, unspecified; Z20.822 Contact with and (suspected) exposure to COVID-19
CPT/HCPCS: 87088; 87086; 81025; 0240U; 99282; 81003; 81015

== ENCOUNTER 2023-02-10 03:14 | Emergency (ER) | payer BC ==
--- NOTE | 2023-02-10 03:32 | EDPHYS ---
Physician Documentation [facility] Name: Ramiro Tracy Age: 32 yrs Sex: Female : 1990 Arrival Date: 02/10/2023 Time: 03:14 Bed 14 Private MD: ED Physician Moe Dan HPI: 02/10 03:31 This 32 yrs old Female presents to ER via Ambulatory with complaints of ms3 Suspicious bruise behind left knee. 03:31 32-year-old female with no past medical history presents for bruise behind left knee. ms3 Patient states she noted a superficial vein in that area 2 weeks prior to arrival. Patient denies pain, nausea, vomiting, fevers, chills, leg swelling, chest pain, shortness of breath.. Historical: - Allergies: 03:29 No Known Allergies; ha1 - PSHx: 03:29 Cholecystectomy; ; ha1 - Immunization history:: Adult Immunizations unknown. - Social history:: Smoking status: Patient denies any tobacco usage or history of. ROS: 03:31 Constitutional: Negative for fever, and chills. Neck: Negative for injury, pain, and ms3 swelling, Cardiovascular: Negative for chest pain, and palpitations. Respiratory: Negative for shortness of breath, cough, wheezing, and pleuritic chest pain, Abdomen/GI: Negative for abdominal pain, nausea, vomiting, diarrhea, and constipation, MS/Extremity: Negative for injury and deformity. 03:31 Skin: Positive for ecchymosis. 03:31 All other systems are negative. Exam: 03:31 Constitutional: This is a well developed, well nourished patient who is awake, alert, ms3 and in no acute distress. Head/Face: Normocephalic, atraumatic. Neck: Trachea midline, no cervical lymphadenopathy. Supple, full range of motion without nuchal rigidity, or vertebral point tenderness. No Meningismus. Chest/axilla: Normal chest wall appearance and motion. Nontender with no deformity. Cardiovascular: Regular rate and rhythm with a normal S1 and S2. No gallops, murmurs, or rubs. Normal PMI, no JVD. No pulse deficits. Respiratory: Lungs have equal breath sounds bilaterally, clear to auscultation and percussion. No rales, rhonchi or wheezes noted. No increased work of breathing, no retractions or nasal flaring. Abdomen/GI: Soft, non-tender, with normal bowel sounds. No distension or tympany. No guarding or rebound. No evidence of tenderness throughout. 03:31 Skin: 2 cm ecchymosis posterior medial L knee. Vital Signs: 03:19 BP 126 / 90; Pulse 89; Resp 18 S; Temp 98; Pulse Ox 100% on R/A; Weight 88.45 kg; ha1 Height 5 ft. 0 in. ; 03:19 Body Mass Index 38.08 (88.45 kg, 152.4 cm) ha1 MDM: 03:31 Patient medically screened. ms3 03:31 Differential diagnosis: contusion. Data reviewed: vital signs, nurses notes, and as a ms3 result, I will discharge patient. Counseling: I had a detailed discussion with the patient and/or guardian regarding the historical points, exam findings, and any diagnostic results supporting the discharge/admit diagnosis, the need for outpatient follow up, to return to the emergency department if symptoms worsen or persist or if there are any questions or concerns that arise at home. 05:15 ED course: Discussed physical exam findings with patient. Patient to follow-up primary ms3 care physician in 2 to 3 days. Patient understands agrees with plan. All questions were answered. Return precautions discussed include worsening symptoms, or any other concerns. Administered Medications: No medications were administered Disposition Summary: 02/10/23 03:31 Discharge Ordered Location: Home ms3 Condition: Stable ms3 Diagnosis - Contusion of knee ms3 Followup: ms3 - With: Roby Lam DO - When: 1 - 2 days - Reason: Re-evaluation by your physician Discharge Instructions: - Discharge Summary Sheet ms3 - Contusion, [id number] ms3 Forms: - Medication Reconciliation Form ms3 - Thank You Letter ms3 - Antibiotic Education ms3 - Prescription Opioid Use ms3 - Patient Portal Instructions ms3 - Leadership Thank You Letter ms3 Signatures: Moe Dan DO DO ms3 Dalia Guevara, RN RN ha1
--- NOTE | 2023-02-10 03:32 | ER ---
Nurse's Notes [facility] Name: Ramiro Tracy Age: 32 yrs Sex: Female : 1990 Arrival Date: 02/10/2023 Time: 03:14 Bed 14 Private MD: Diagnosis: Contusion of knee Presentation: 02/10 03:19 Chief complaint: Patient states: after taking a shower I noticed I have a weird bruise ha1 behind my leg. I am afraid it is a blood clot. 03:19 Coronavirus screen: Vaccine status: Patient reports being unvaccinated. Ebola Screen: ha1 No symptoms or risks identified at this time. Initial Sepsis Screen: Does the patient meet any 2 criteria? No. Patient's initial sepsis screen is negative. Does the patient have a suspected source of infection? No. Patient's initial sepsis screen is negative. Risk Assessment: Do you want to hurt yourself or someone else? Patient reports no desire to harm self or others. 03:19 Method Of Arrival: Ambulatory ha1 03:19 Acuity: CASA 4 ha1 03:33 Onset of symptoms was February 05, 2023. 1 Triage Assessment: 03:19 General: Appears comfortable, Behavior is cooperative. Pain: Denies pain. Neuro: Level ha1 of Consciousness is awake, alert, obeys commands, Oriented to person, place, time, situation. Cardiovascular: Patient's skin is warm and dry. Respiratory: Airway is patent Respiratory effort is even, unlabored, Respiratory pattern is regular, symmetrical. Derm: Bruising that is brown, on back of right leg. Musculoskeletal: Circulation, motion, and sensation intact. Range of motion: intact in all extremities. Historical: - Allergies: 03:29 No Known Allergies; ha1 - PSHx: 03:29 Cholecystectomy; ; ha1 - Immunization history:: Adult Immunizations unknown. - Social history:: Smoking status: Patient denies any tobacco usage or history of. Screenin:32 [facility] ED Fall Risk Assessment (Adult) History of falling in the last 3 months, ha1 including since admission No falls in past 3 months (0 pts) Confusion or Disorientation No (0 pts) Intoxicated or Sedated No (0 pts) Impaired Gait No (0 pts) Mobility Assist Device Used No (0 pt) Altered Elimination No (0 pt) Score/Fall Risk Level 0 - 2 = Low Risk Oriented to surroundings, Maintained a safe environment, Educated pt \T\ family on fall prevention, incl call for assistance when getting out of bed, Hourly rounding (assess needs \T\ fall precautionary measures) done. Abuse screen: Denies threats or abuse. Denies injuries from another. Nutritional screening: No deficits noted. Tuberculosis screening: No symptoms or risk factors identified. Vital Signs: 03:19 BP 126 / 90; Pulse 89; Resp 18 S; Temp 98; Pulse Ox 100% on R/A; Weight 88.45 kg; ha1 Height 5 ft. 0 in. ; 03:19 Body Mass Index 38.08 (88.45 kg, 152.4 cm) ha1 ED Course: 03:18 Patient arrived in ED. [id number] 03:18 Moe Dan DO is Attending Physician. ms3 03:19 Arm band placed on right wrist. ha1 03:19 Patient has correct armband on for positive identification. Bed in low position. Call ha1 light in reach. Side rails up X 1. 03:29 Triage completed. ha1 03:31 Roby Lam DO is Referral Physician. ms3 03:38 Provided Education on: following up with PCP. ha1 03:38 No provider procedures requiring assistance completed. Patient did not have IV access ha1 during this emergency room visit. Administered Medications: No medications were administered Medication: 03:33 VIS not applicable for this client. ha1 Outcome: 03:31 Discharge ordered by MD. ms3 03:38 Discharged to home ambulatory. ha1 03:38 Condition: stable 03:38 Discharge instructions given to patient, Instructed on discharge instructions, follow up and referral plans. Demonstrated understanding of instructions, follow-up care. 03:39 Patient left the ED. ha1 Signatures: Moe Dan DO DO ms3 Fl[place]ita [place] jj6 Dalia Guevara RN RN ha1
[2023-02-10 04:06] VITALS: BP 126/90; TEMP 98; O2SAT 100
--- OUTSIDE RECORDS SUMMARY | 2023-02-10 04:35 | XMS REPORT | Continuity of Care Document ---
:1990 Author Organization [facility] t Address [address] [place] [address] [place] [id number] Care Team Providers Name Role Phone Ni DOVE, Elena Miller Primary Care Physician [phone] GELY LEON Attending Clinician Unavailable Gely Leon MD Attending Clinician Doctor Unassigned, [place] Attending Clinician Unavailable Pob, [facility] Main Attending Clinician Unavailable Tiffanie Nolen RN Attending Clinician Unavailable Cele Tabares PA-C Attending Clinician SHILOH IRAHETA Attending Clinician Unavailable Shiloh Iraheta MD Attending Clinician NIMISHA SOTO Attending Clinician Unavailable Nimisha Soto MD Attending Clinician Ultrasound, Ang-Mfm Attending Clinician Unavailable Rik Julian MD Attending Clinician [phone] RIK JULIAN Attending Clinician Unavailable 2, [facility] Attending Clinician Unavailable Loly Baldwin DO Attending Clinician LOLY BALDWIN Attending Clinician Unavailable GELY LEON Admitting Clinician Unavailable Gely Leon MD Admitting Clinician Payers Payer Name Policy Type Policy Number Effective Date Expiration Date Naga duncan [employer] [place] - [id number] 2016 00:00:00 OUT OF STATE FOR LIFE [id number] 2016 00:00:00 Problems Condition Condition Condition Status Onset Resolution Last Treating Co mments Source Name Details Category Date Date Treatment Clinician Date FUO (fever FUO (fever Disease Active 2021-06 U nivers of unknown of unknown 2-27 it y of origin) origin) 00:00: [place] [facility] 39 weeks 39 weeks Disease Active 2021-06 Unive rs gestation gestation 0-31 ity of of of 00:00: [place] 00 [facility] Liveborn Liveborn Disease Active 2021-06 Unive rs infant, of , of 0-31 it y of kennedy kennedy 00:00: [place] aleman , , 00 Me dical born in born in [facility] hospital by by delivery delivery Encounter Encounter Disease Active 2021-06 Uni vers for tubal for tubal 0-21 ity of ligation ligation 00:00: [place] counseling counseling 00 Me dical Branch Status Status Disease Active 2021-06 Univers post post 0-21 ity of bilateral bilateral 00:00: [place] aleman salpingect salpingect 00 Me dical chad chad Branch Supervisio Supervisio Disease Active 2021-06 U nivers n of high n of high 0-05 ity of risk risk 00:00: [place] 00 [facility] in third in third Branch trimester trimester Supervisio Supervisio Disease Active U nivers n of other n of other 5-29 it y of normal normal 00:00: [place] 00 [facility] Nausea and Nausea and Disease Active U nivers vomiting vomiting 3-17 ity of in in 00:00: [place] 00 [facility] Obesity in Obesity in Disease Active U nivers 3-17 ity of 00:00: [address] Spotting Spotting Disease Active Unive rs in early in early 3-17 ity of 00:00: [place] s [address] [facility] Previous Previous Disease Active Unive rs 3-08 ity of delivery delivery 00:00: [place] affecting affecting 00 Medi mayito , , Br anch antepartum antepartum Gastroesop Gastroesop Disease Active M ethodi hageal hageal 4 st reflux reflux 00:00: Hospita disease disease 00 l without without esophagiti esophagiti s s Viral URI Viral URI Disease Active Met hodi with cough with cough 09-21 st 00:00: Hospita 00 l H/O H/O Disease Active Methodi abnormal abnormal st cervical cervical Hospit a Papanicola Papanicola l ou smear ou smear Allergies, Adverse Reactions, Alerts Allergy Allergy Status Severity Reaction(s) Onset Inactive Treating Comm ents Source Name Type Date Date Clinician No Known Propensi Active Method i Drug ty to 10-25 Allergie adverse 00:00: Hospita s reaction 00 l s to drug NO KNOWN Drug Active Univers ALLERGIE Class ity of S [facility] Family History Family Member Diagnosis Comments Start Date Stop Date Source Natural father No Known Problems Met [facility] Natural mother No Known Problems Met [facility] Social History Social Habit Start Date Stop Date Quantity Comments Source ASSERTION 2021-07-31 University of 00:00:00 [facility] Sexual orientation Method t [facility] Gender identity [facility] Tobacco use and 2022-11-30 2022-11-30 Smokeless Universit y of exposure 00:00:00 00:00:00 tobacco non-user [facility] Exposure to 2022-06-04 2022-06-14 Not sure [facility] SARS-CoV-2 (event) 00:00:00 11:06:00 [facility] Alcohol intake 2020-02-24 2020-02-24 Current drinker [facility] dist 00:00:00 00:00:00 of [facility] (finding) History of Social 2020-02-24 2020-02-[address] function 00:00:00 00:00:00 Hospital Alcohol Comment 2017-12-11 2017-12-11 twice monthly Method ist 00:00:00 00:00:00 Hospital Sex Ass[birth year] At [birth year] [facility] 00:00:00 00:00:00 Hospital Smoking Status Start Date Stop Date Source Never smoked tobacco [facility] Medications Ordered Filled Start Stop Current Ordering Indication Dosage Frequency Signature Comments Components Source Medication Medication Date Date Medication? Clinician (SIG) Name Name PNV Yes Take by Univers no.95/satish 6-16 mouth. ity of us 13:50: [place] fum/folic Medical Branch ( ORAL) PNV Yes Take by Univers no.95/satish 6-16 mouth. ity of us 13:50: [place] fum/folic Medical Branch ( ORAL) iopamidol 2022- No [id number] 78mL 78 mL, Un gail (ISOVUE 06-18- Intravenou ity o f 370-500 mL) 16:45: 16:51 s, ONCE, 1 [place] injection 00 :00 dose, On Medica l 78 mL 06/18/22 Branch at 1045, Routine ibuprofen 2021-06 Yes 600mg 600 mg, Univ ers (IBU) -02 Oral, Q6H ity of tablet 600 05:00: ABX, First [place] mg 00 dose on Medical Wed Branch 04/18/22 at 0000, Until Discontinu ed, Routine ibuprofen 2021-06 Yes 600mg 600 mg, Univ ers (IBU) -02 Oral, Q6H ity of tablet 600 05:00: ABX, First [place] mg 00 dose on Medical Wed Branch 04/18/22 at 0000, Until Discontinu ed, Routine acetaminoph 2021-06 Yes [id number] 650mg Take 2 Univers en 1-02 tablets by ity of (TYLENOL) 00:00: mouth [place] 325 mg 00 every 6 Medical tablet (six) Branch hours as needed for Pain (scale 1-3) or Pain (scale 4-6). acetaminoph 2021-06 Yes [id number] 650mg Take 2 Univers en 1-02 tablets by ity of (TYLENOL) 00:00: mouth [place] 325 mg 00 every 6 Medical tablet (six) Branch hours as needed for Pain (scale 1-3) or Pain (scale 4-6). acetaminoph 2021-06 Yes [id number] 650mg Take 2 Univers en 1-02 tablets by ity of (TYLENOL) 00:00: mouth [place] 325 mg 00 every 6 Medical tablet (six) Branch hours as needed for Pain (scale 1-3) or Pain (scale 4-6). acetaminoph 2021-06 Yes [id number] 650mg Take 2 Univers en 1-02 tablets by ity of (TYLENOL) 00:00: mouth [place] 325 mg 00 every 6 Medical tablet (six) Branch hours as needed for Pain (scale 1-3) or Pain (scale 4-6). acetaminoph 2021-06 Yes [id number] 650mg Take 2 Univers en 1-02 tablets by ity of (TYLENOL) 00:00: mouth [place] 325 mg 00 every 6 Medical tablet (six) Branch hours as needed for Pain (scale 1-3) or Pain (scale 4-6). acetaminoph 2021-06 Yes [id number] 650mg Take 2 Univers en 1-02 tablets by ity of (TYLENOL) 00:00: mouth [place] 325 mg 00 every 6 Medical tablet (six) Branch hours as needed for Pain (scale 1-3) or Pain (scale 4-6). acetaminoph 2021-06 Yes [id number] 650mg Take 2 Univers en 1-02 tablets by ity of (TYLENOL) 00:00: mouth [place] 325 mg 00 every 6 Medical tablet (six) Branch hours as needed for Pain (scale 1-3) or Pain (scale 4-6). acetaminoph 2021-06 Yes [id number] 650mg Take 2 Univers en 1-02 tablets by ity of (TYLENOL) 00:00: mouth [place] 325 mg 00 every 6 Medical tablet (six) Branch hours as needed for Pain (scale 1-3) or Pain (scale 4-6). acetaminoph 2021-06 Yes [id number] 650mg Take 2 Univers en 1-02 tablets by ity of (TYLENOL) 00:00: mouth [place] 325 mg 00 every 6 Medical tablet (six) Branch hours as needed for Pain (scale 1-3) or Pain (scale 4-6). acetaminoph 2021-06 Yes [id number] 650mg Take 2 Univers en 1-02 tablets by ity of (TYLENOL) 00:00: mouth [place] 325 mg 00 every 6 Medical tablet (six) Branch hours as needed for Pain (scale 1-3) or Pain (scale 4-6). acetaminoph 2021-06 Yes [id number] 650mg Take 2 Univers en 1-02 tablets by ity of (TYLENOL) 00:00: mouth [place] 325 mg 00 every 6 Medical tablet (six) Branch hours as needed for Pain (scale 1-3) or Pain (scale 4-6). acetaminoph 2021-06 Yes [id number] 650mg Take 2 Univers en 1-02 tablets by ity of (TYLENOL) 00:00: mouth [place] 325 mg 00 every 6 Medical tablet (six) Branch hours as needed for Pain (scale 1-3) or Pain (scale 4-6). acetaminoph 2021-06 Yes [id number] 650mg Take 2 Univers en 1-02 tablets by ity of (TYLENOL) 00:00: mouth [place] 325 mg 00 every 6 Medical tablet (six) Branch hours as needed for Pain (scale 1-3) or Pain (scale 4-6). acetaminoph 2021-06 Yes [id number] 650mg Take 2 Univers en 1-02 tablets by ity of (TYLENOL) 00:00: mouth [place] 325 mg 00 every 6 Medical tablet (six) Branch hours as needed for Pain (scale 1-3) or Pain (scale 4-6). acetaminoph 2021-06- No [id number] 650mg Take 2 Univers en 1-02 06-17 tablets by ity of (TYLENOL) 00:00: 00:00 mouth [place] 325 mg 00 :00 every 6 Medical tablet (six) Branch hours as needed for Pain (scale 1-3) or Pain (scale 4-6). acetaminoph 2021-06- No [id number] 650mg Take 2 Univers en 1-02 06-17 tablets by ity of (TYLENOL) 00:00: 00:00 mouth [place] 325 mg 00 :00 every 6 Medical tablet (six) Branch hours as needed for Pain (scale 1-3) or Pain (scale 4-6). HYDROcodone 2021-06- No [id number] 1{tbl} Take 1 U nivers -acetaminop 1-02 11-10 tablet by it y of hen 5-325 00:00: 05:59 mouth [place] mg tablet 00 :00 every 6 Medical (six) Branch hours as needed for Pain (scale 7-10) for up to 7 days. Indication s: acute pain HYDROcodone 2021-06- No [id number] 1{tbl} Take 1 U nivers -acetaminop 1-02 11-10 tablet by it y of hen 5-325 00:00: 05:59 mouth [place] mg tablet 00 :00 every 6 Medical (six) Branch hours as needed for Pain (scale 7-10) for up to 7 days. Indication s: acute pain HYDROcodone 2021-06- No [id number] 1{tbl} Take 1 U nivers -acetaminop 1-02 11-10 tablet by it y of hen 5-325 00:00: 05:59 mouth [place] mg tablet 00 :00 every 6 Medical (six) Branch hours as needed for Pain (scale 7-10) for up to 7 days. Indication s: acute pain HYDROcodone 2021-06 No [id number] 1{tbl} Take 1 U nivers -acetaminop 1-02 11-10 tablet by it y of hen 5-325 00:00: 05:59 mouth [place] mg tablet 00 :00 every 6 Medical (six) Branch hours as needed for Pain (scale 7-10) for up to 7 days. Indication s: acute pain gabapentin 2021-06- No [id number] 300mg Take 1 Univers 300 mg 06-18 capsule by ity of capsule 00:00: 05:59 mouth in [place] 00 :00 the Medical morning Branch and 1 capsule at noon and 1 capsule in the evening. Do all this for 5 days. gabapentin 2021-06- No [id number] 300mg Take 1 Univers 300 mg 06-18 capsule by ity of capsule 00:00: 05:59 mouth in [place] 00 :00 the Medical morning Branch and 1 capsule at noon and 1 capsule in the evening. Do all this for 5 days. gabapentin 2021-06- No [id number] 300mg Take 1 Univers 300 mg 06-18 capsule by ity of capsule 00:00: 05:59 mouth in [place] 00 :00 the Medical morning Branch and 1 capsule at noon and 1 capsule in the evening. Do all this for 5 days. gabapentin 2021-06- No [id number] 300mg Take 1 Univers 300 mg 06-18 capsule by ity of capsule 00:00: 05:59 mouth in [place] 00 :00 the Medical morning Branch and 1 capsule at noon and 1 capsule in the evening. Do all this for 5 days. ketorolac 2021-06- No 30mg 30 mg, Unive rs (TORADOL) 06-17 Slow IV ity of injection 05:00: 23:23 [place], Q6H [place] 30 mg 00 :00 ABX, 4 Medical doses, Branch First dose on Sat04/17/22 at 0000, Last dose on Sat04/17/22 at 1800, Routine acetaminoph 2021-06 Yes 650mg 650 mg, Un gail en 1-01 Oral, Q6H ity of (TYLENOL) 03:00: ABX, First [place] tablet 650 00 dose on Medica l mg [facility] 04/16/22 at 2200, Until Discontinu ed, Routine HYDROcodone 2021-06 Yes 1{tbl} 1 tablet, Univers -acetaminop 1-01 Oral, ity of hen (NORCO 03:00: Q6HPRN, [place] 5) 5-325 mg 00 Starting Medi mayito tablet 1 on [facility] Branch tablet 04/16/22 at 2200, Until Discontinu ed, Routine, Pain (scale 7-10), Alternate with Ibuprofen acetaminoph 2021-06 Yes 650mg 650 mg, Un gail en 06-17 Oral, Q6H ity of (TYLENOL) 03:00: ABX, First [place] tablet 650 00 dose on Medica l mg [facility] 04/16/22 at 2200, Until Discontinu ed, Routine HYDROcodone 2021-06 Yes 1{tbl} 1 tablet, Univers -acetaminop 1-01 Oral, ity of hen (NORCO 03:00: Q6HPRN, [place] 5) 5-325 mg 00 Starting Medi mayito tablet 1 on [facility] Branch tablet 04/16/22 at 2200, Until Discontinu ed, Routine, Pain (scale 7-10), Alternate with Ibuprofen 2021-06 Yes [id number] 1{tbl} Take 1 Univers vitamin 1-01 tablet by ity of w/FA tablet 00:00: mouth in [place] 00 the Medical morning. Branch docusate 2021-06 Yes [id number] 200mg Take 2 U nivers 100 mg 1- capsules ity of capsule 00:00: by mouth 00 once daily Medical as needed Branch for Constipati on. ferrous 2021-06 Yes [id number] 325mg Take 1 Un gail sulfate 325 1-01 tablet by ity of mg (65 mg 00:00: mouth [place] iron) 00 the Medical tablet morning Branch and 1 tablet in the evening. ibuprofen 2021-06 Yes [id number] 600mg Take 1 Univers 600 mg 1-01 tablet by ity of tablet 00:00: mouth [place] 00 every 6 Medical (six) Branch hours as needed (Pain). Take with food or milk. 2021-06 Yes [id number] 1{tbl} Take 1 Univers vitamin 1-01 tablet by ity of w/FA tablet 00:00: mouth in [place] 00 the Medical morning. Branch docusate 2021-06 Yes [id number] 200mg Take 2 U nivers 100 mg 1-01 capsules ity of capsule 00:00: by mouth [place] 00 once daily Medical as needed Branch for Constipati on. ferrous 2021-06 Yes [id number] 325mg Take 1 Un gail sulfate 325 1-01 tablet by ity of mg (65 mg 00:00: mouth [place] iron) 00 the Medical tablet morning Branch and 1 tablet in the evening. ibuprofen 2021-06 Yes [id number] 600mg Take 1 Univers 600 mg 1-01 tablet by ity of tablet 00:00: mouth [place] 00 every 6 Medical (six) Branch hours as needed (Pain). Take with food or milk. 2021-06 Yes [id number] 1{tbl} Take 1 Univers vitamin 1-01 tablet by ity of w/FA tablet 00:00: mouth in [place] 00 the Medical morning. Branch docusate 2021-06 Yes [id number] 200mg Take 2 U nivers 100 mg 1-01 capsules ity of capsule 00:00: by mouth [place] 00 once daily Medical as needed Branch for Constipati on. ferrous 2021-06 Yes [id number] 325mg Take 1 Un gail sulfate 325 1-01 tablet by ity of mg (65 mg 00:00: mouth [place] iron) 00 the Medical tablet morning Branch and 1 tablet in the evening. ibuprofen 2021-06 Yes [id number] 600mg Take 1 Univers 600 mg 1-01 tablet by ity of tablet 00:00: mouth [place] 00 every 6 Medical (six) Branch hours as needed (Pain). Take with food or milk. 2021-06 Yes [id number] 1{tbl} Take 1 Univers vitamin 1-01 tablet by ity of w/FA tablet 00:00: mouth in [place] 00 the Medical morning. Branch docusate 2021-06 Yes [id number] 200mg Take 2 U nivers 100 mg 1-01 capsules ity of capsule 00:00: by mouth [place] 00 once daily Medical as needed Branch for Constipati on. ferrous 2021-06 Yes [id number] 325mg Take 1 Un gail sulfate 325 1-01 tablet by ity of mg (65 mg 00:00: mouth [place] iron) 00 the Medical tablet morning Branch and 1 tablet in the evening. ibuprofen 2021-06 Yes [id number] 600mg Take 1 Univers 600 mg 1-01 tablet by ity of tablet 00:00: mouth [place] 00 every 6 Medical (six) Branch hours as needed (Pain). Take with food or milk. 2021-06 Yes [id number] 1{tbl} Take 1 Univers vitamin 1-01 tablet by ity of w/FA tablet 00:00: mouth in [place] 00 the Medical morning. Branch docusate 2021-06 Yes [id number] 200mg Take 2 U nivers 100 mg 1-01 capsules ity of capsule 00:00: by mouth [place] 00 once daily Medical as needed Branch for Constipati on. ferrous 2021-06 Yes [id number] 325mg Take 1 Un gail sulfate 325 1-01 tablet by ity of mg (65 mg 00:00: mouth [place] iron) 00 the Medical tablet morning Branch and 1 tablet in the evening. ibuprofen 2021-06 Yes [id number] 600mg Take 1 Univers 600 mg 1-01 tablet by ity of tablet 00:00: mouth [place] 00 every 6 Medical (six) Branch hours as needed (Pain). Take with food or milk. 2021-06 Yes [id number] 1{tbl} Take 1 Univers vitamin 1-01 tablet by ity of w/FA tablet 00:00: mouth in [place] 00 the Medical morning. Branch docusate 2021-06 Yes [id number] 200mg Take 2 U nivers 100 mg 1-01 capsules ity of capsule 00:00: by mouth [place] 00 once daily Medical as needed Branch for Constipati on. ferrous 2021-06 Yes [id number] 325mg Take 1 Un gail sulfate 325 1-01 tablet by ity of mg (65 mg 00:00: mouth [place] iron) 00 the Medical tablet morning Branch and 1 tablet in the evening. ibuprofen 2021-06 Yes [id number] 600mg Take 1 Univers 600 mg 1-01 tablet by ity of tablet 00:00: mouth [place] 00 every 6 Medical (six) Branch hours as needed (Pain). Take with food or milk. 2021-06 Yes [id number] 1{tbl} Take 1 Univers vitamin 1-01 tablet by ity of w/FA tablet 00:00: mouth in [place] 00 the Medical morning. Branch docusate 2021-06 Yes [id number] 200mg Take 2 U nivers 100 mg 1-01 capsules ity of capsule 00:00: by mouth [place] 00 once daily Medical as needed Branch for Constipati on. ferrous 2021-06 Yes [id number] 325mg Take 1 Un gail sulfate 325 1-01 tablet by ity of mg (65 mg 00:00: mouth [place] iron) 00 the Medical tablet morning Branch and 1 tablet in the evening. ibuprofen 2021-06 Yes [id number] 600mg Take 1 Univers 600 mg 1-01 tablet by ity of tablet 00:00: mouth [place] 00 every 6 Medical (six) Branch hours as needed (Pain). Take with food or milk. 2021-06 Yes [id number] 1{tbl} Take 1 Univers vitamin 1-01 tablet by ity of w/FA tablet 00:00: mouth in [place] 00 the Medical morning. Branch docusate 2021-06 Yes [id number] 200mg Take 2 U nivers 100 mg 1-01 capsules ity of capsule 00:00: by mouth [place] 00 once daily Medical as needed Branch for Constipati on. ferrous 2021-06 Yes [id number] 325mg Take 1 Un gail sulfate 325 1-01 tablet by ity of mg (65 mg 00:00: mouth [place] iron) 00 the Medical tablet morning Branch and 1 tablet in the evening. ibuprofen 2021-06 Yes [id number] 600mg Take 1 Univers 600 mg 1-01 tablet by ity of tablet 00:00: mouth [place] 00 every 6 Medical (six) Branch hours as needed (Pain). Take with food or milk. 2021-06 Yes [id number] 1{tbl} Take 1 Univers vitamin 1-01 tablet by ity of w/FA tablet 00:00: mouth in [place] 00 the Medical morning. Branch docusate 2021-06 Yes [id number] 200mg Take 2 U nivers 100 mg 1-01 capsules ity of capsule 00:00: by mouth [place] 00 once daily Medical as needed Branch for Constipati on. ferrous 2021-06 Yes [id number] 325mg Take 1 Un gail sulfate 325 1-01 tablet by ity of mg (65 mg 00:00: mouth [place] iron) 00 the Medical tablet morning Branch and 1 tablet in the evening. ibuprofen 2021-06 Yes [id number] 600mg Take 1 Univers 600 mg 1-01 tablet by ity of tablet 00:00: mouth [place] 00 every 6 Medical (six) Branch hours as needed (Pain). Take with food or milk. ibuprofen 2021-06 Yes [id number] 600mg Take 1 Univers 600 mg 1-01 tablet by ity of tablet 00:00: mouth [place] 00 every 6 Medical (six) Branch hours as needed (Pain). Take with food or milk. ibuprofen 2021-06 Yes [id number] 600mg Take 1 Univers 600 mg 1-01 tablet by ity of tablet 00:00: mouth [place] 00 every 6 Medical (six) Branch hours as needed (Pain). Take with food or milk. ibuprofen 2021-06 Yes [id number] 600mg Take 1 Univers 600 mg 1-01 tablet by ity of tablet 00:00: mouth [place] 00 every 6 Medical (six) Branch hours as needed (Pain). Take with food or milk. ibuprofen 2021-06 Yes [id number] 600mg Take 1 Univers 600 mg 1-01 tablet by ity of tablet 00:00: mouth [place] 00 every 6 Medical (six) Branch hours as needed (Pain). Take with food or milk. ibuprofen 2021-06 Yes [id number] 600mg Take 1 Univers 600 mg 1-01 tablet by ity of tablet 00:00: mouth [place] 00 every 6 Medical (six) Branch hours as needed (Pain). Take with food or milk. ibuprofen 2021-06 Yes [id number] 600mg Take 1 Univers 600 mg 1-01 tablet by ity of tablet 00:00: mouth [place] 00 every 6 Medical (six) Branch hours as needed (Pain). Take with food or milk. ibuprofen 2021-06 Yes [id number] 600mg Take 1 Univers 600 mg - tablet by ity of tablet 00:00: mouth [place] 00 every 6 Medical (six) Branch hours as needed (Pain). Take with food or milk. ibuprofen 2021-06- No [id number] 600mg Take 1 Univers 600 mg -12-01 tablet by ity of tablet 00:00: 00:00 mouth [place] 00 :00 every 6 Medical (six) Branch hours as needed (Pain). Take with food or milk. ibuprofen 2021-06- No [id number] 600mg Take 1 Univers 600 mg -12-01 tablet by ity of tablet 00:00: 00:00 mouth [place] 00 :00 every 6 Medical (six) Branch hours as needed (Pain). Take with food or milk. 2021-06- No [id number] 1{tbl} Take 1 Univers vitamin -06-12 tablet by ity of w/FA tablet 00:00: 00:00 mouth in [place] 00 :00 the Medical morning. Branch docusate 2021-06- No [id number] 200mg Take 2 Univers 100 mg 06-17 capsules ity of capsule 00:00: 00:00 by mouth [place] 00 :00 once daily Medical as needed Branch for Constipati on. ferrous 2021-06- No [id number] 325mg Take 1 U nivers sulfate 325 06-17 tablet by it y of mg (65 mg 00:00: 00:00 mouth in [place] iron) 00 :00 the Medical tablet morning Branch and 1 tablet in the evening. 2021-06- No [id number] 1{tbl} Take 1 Univers vitamin -06-12 tablet by ity of w/FA tablet 00:00: 00:00 mouth in [place] 00 :00 the Medical morning. Branch docusate 2021-06- No [id number] 200mg Take 2 Univers 100 mg 06-17 capsules ity of capsule 00:00: 00:00 by mouth [place] 00 :00 once daily Medical as needed Branch for Constipati on. ferrous 2021-06- No [id number] 325mg Take 1 U nivers sulfate 325 06-17 tablet by it y of mg (65 mg 00:00: 00:00 mouth in [place] iron) 00 :00 the Medical tablet morning Branch and 1 tablet in the evening. gabapentin 2021-06 Yes 300mg 300 mg, Uni vers (NEURONTIN) 0-31 Oral, TID, it y of capsule 300 19:00: First dose [place] mg 00 on Sat04/16/22 Branch at 1400, Until Discontinu ed, Routine gabapentin 2021-06 Yes 300mg 300 mg, Uni vers (NEURONTIN) 0-31 Oral, TID, it y of capsule 300 19:00: First dose [place] mg 00 on Sat04/16/22 Branch at 1400, Until Discontinu ed, Routine [...] Routine lactated 2021-06- No 1000mL at 125 [facility] ers ringers IV 0-31 10-31 mL/hr, ity [...] Q6HPRN, Medical 25 mg Starting Branch on 04/16/22 at 1029, Until Discontinu ed, Routine, Itching [...] Medica l 400 mg/5 mL on Sat Branch suspension 04/16/22 30 mL at 1029, Until [...] of OINT) 2 % 14:11: [place] skin Medical ointment Branch mupirocin 2021-06 Yes Intra-op Univ ers (BACTROBAN 0-31 ity of OINT) 2 % 14:11: [place] skin Medical ointment Branch sodium 2021-06 Yes PRN, Univers chloride 0-31 Starting ity of 0.9 % 14:00: on Sat [place] irrigation 04/16/22 Medic al solution at 0900, Branch Until Discontinu ed, Intra-op sodium 2021-06 Yes PRN, Univers chloride 0-31 Starting ity of 0.9 % 14:00: on Sat [place] irrigation 04/16/22 Medic al solution at 0900, Branch Until Discontinu ed, Intra-op sodium 2021-06 No 30mL 30 mL, Univers citrate-cit 0-31 10-31 Oral, ity of filippo acid 10:45: 12:53 PRE-PROCED [place] (BICITRA) 51 :00 URE ONCE, Medic al [id number] 1 dose, Branch mg/5 mL Starting solution 30 on Sat mL 04/16/22 at 0545, Until Discontinu ed, Routine, Surgery/Pr ocedure [id number] IV 2021-06 No 1000mL at 1-125 U nivers infusion 0-31 10-31 mL/hr, IV ity o f 1,000 mL 10:45: 15:30 Infusion, [place] 51 :00 TITRATE, Medical Starting Branch on Sat04/16/22 at 0545, Until Sat04/16/22 at 1030, Routine pyridoxine, Yes [id number] 25mg Take 1 Univers VITAMIN 3-17 tablet by ity of B-6, 25 mg 00:00: mouth 3 [place] tablet 00 (three) Medical times Branch daily. doxylamine Yes [id number] 25mg Take 1 U nivers 25 mg 3-17 tablet by ity of tablet 00:00: mouth at [place] 00 bedtime. Medical Branch pyridoxine, 0 Yes [id number] 25mg Take 1 Univers VITAMIN 3-17 tablet by ity of B-6, 25 mg 00:00: mouth 3 [place] tablet 00 (three) Medical times Branch daily. doxylamine 2021-0 Yes [id number] 25mg Take 1 U nivers 25 mg 3-17 tablet by ity of tablet 00:00: mouth at [place] 00 bedtime. Medical Branch pyridoxine, 0 Yes [id number] 25mg Take 1 Univers VITAMIN 3-17 tablet by ity of B-6, 25 mg 00:00: mouth 3 [place] tablet 00 (three) Medical times Branch daily. doxylamine 0 Yes [id number] 25mg Take 1 U nivers 25 mg 3-17 tablet by [facility] of tablet 00:00: mouth at [place] 00 bedtime. Medical [facility] pyridoxine, Yes [id number] 25mg Take 1 [facility] VITAMIN 3-17 tablet by ity of B-6, 25 mg 00:00: [place] tablet 00 (three) [facility] times [facility] daily. doxylamine 0 Yes [id number] 25mg Take 1 [facility] nivers 25 mg 3-17 tablet by ity of tablet 00:00: mouth at [place] 00 bedtime. Medical [facility] pyridoxine, 0 Yes [id number] 25mg Take 1 [facility] VITAMIN 3-17 tablet by [facility]y of B-6, 25 mg 00:00: [place] tablet 00 (three) Medical times [facility] daily. doxylamine 0 Yes [id number] 25mg Take 1 [facility] nivers 25 mg 3-17 tablet by [facility] of tablet 00:00: mouth at [place] 00 bedtime. Medical [facility] pyridoxine, 0 Yes [id number] 25mg Take 1 [facility] VITAMIN 3-17 tablet by [facility] of B-6, 25 mg 00:00: mouth [place] tablet 00 (three) Medical times [facility] daily. doxylamine 2021-0 Yes [id number] 25mg Take 1 [facility] nivers 25 mg 3-17 tablet by [facility] of tablet 00:00: mouth at [place] 00 bedtime. Medical [facility] pyridoxine, 0 Yes [id number] 25mg Take 1 [facility] VITAMIN 3-17 tablet by [facility] of B-6, 25 mg 00:00: mouth [place] tablet 00 (three) Medical times [facility] daily. doxylamine 0 Yes [id number] 25mg Take 1 [facility]ivers 25 mg 3-17 tablet by [facility] of tablet 00:00: mouth at [place] 00 bedtime. [facility] pyridoxine, Yes [id number] 25mg Take 1 [facility] VITAMIN 3-17 tablet by [facility] B-6, 25 mg 00:00: mouth [place] tablet 00 (three) Medical times [facility] daily. doxylamine Yes [id number] 25mg Take 1 [facility] nivers 25 mg 3-17 tablet by [facility] of tablet 00:00: mouth at [place] 00 bedtime. [facility] pyridoxine, Yes [id number] 25mg Take 1 [facility] VITAMIN 3-17 tablet by [facility] B-6, 25 mg 00:00: mouth [place] tablet 00 (three) Medical times [facility] daily. doxylamine 0 Yes [id number] 25mg Take 1 [facility] nivers 25 mg 3-17 tablet by [facility] of tablet 00:00: mouth at [place] 00 bedtime. [facility] pyridoxine, Yes [id number] 25mg Take 1 [facility] VITAMIN 3-17 tablet by [facility] B-6, 25 mg 00:00: mouth [place] tablet 00 (three) Medical times [facility] daily. doxylamine 0 Yes [id number] 25mg Take 1 [facility] 25 mg 3-17 tablet by [facility] of tablet 00:00: mouth at [place] 00 bedtime. [facility] pyridoxine, 0 Yes [id number] 25mg Take 1 [facility] VITAMIN 3-17 tablet by [facility] B-6, 25 mg 00:00: mouth [place] tablet 00 (three) Medical times [facility] daily. doxylamine 0 Yes [id number] 25mg Take 1 [facility] 25 mg 3-17 tablet by it[facility] of tablet 00:00: mouth at [place] 00 bedtime. [facility] pyridoxine, Yes [id number] 25mg Take 1 [facility] VITAMIN 3-17 tablet by [facility] of B-6, 25 mg 00:00: mouth 3 [place] tablet 00 (three) Medical times [facility] daily. doxylamine 0 Yes [id number] 25mg Take 1 [facility] 25 mg 3-17 tablet by [facility] of tablet 00:00: mouth at [place] 00 bedtime. Medical [facility] pyridoxine, 0 Yes [id number] 25mg Take 1 [facility] VITAMIN 3-17 tablet by [facility] of B-6, 25 mg 00:00: mouth 3 [place] tablet 00 (three) Medical times [facility] daily. doxylamine 0 Yes [id number] 25mg Take 1 [facility]ivers 25 mg 3-17 tablet by [facility]y of tablet 00:00: mouth at [place] 00 bedtime. [facility] pyridoxine, Yes [id number] 25mg Take 1 [facility] VITAMIN 3-17 tablet by [facility] of B-6, 25 mg 00:00: mouth 3 [place] tablet 00 (three) Medical times [facility] daily. doxylamine Yes [id number] 25mg Take 1 [facility] nivers 25 mg 3-17 tablet by [facility] of tablet 00:00: mouth at [place] 00 bedtime. Medical [facility] pyridoxine, Yes [id number] 25mg Take 1 [facility] VITAMIN 3-17 tablet by [facility] of B-6, 25 mg 00:00: mouth 3 [place] tablet 00 (three) Medical times [facility] daily. doxylamine 0 Yes [id number] 25mg Take 1 [facility] nivers 25 mg 3-17 tablet by [facility] of tablet 00:00: mouth at [place] 00 bedtime. Medical [facility] pyridoxine, 0 Yes [id number] 25mg Take 1 [facility] VITAMIN 3-17 tablet by [facility] of B-6, 25 mg 00:00: mouth [place] tablet 00 (three) Medical times [facility] daily. doxylamine 0 Yes [id number] 25mg Take 1 [facility] 25 mg 3-17 tablet by [facility] of tablet 00:00: mouth at [place] 00 bedtime. Medical [facility] pyridoxine, 0 Yes [id number] 25mg Take 1 [facility] VITAMIN 3-17 tablet by [facility] of B-6, 25 mg 00:00: mouth 3 [place] tablet 00 (three) Medical times Branch daily. doxylamine 0 Yes [id number] 25mg Take 1 [facility] nivers 25 mg 3-17 tablet by [facility] of tablet 00:00: mouth at [place] 00 bedtime. Medical [facility] pyridoxine, Yes [id number] 25mg Take 1 [facility] VITAMIN 3-17 tablet by [facility] B-6, 25 mg 00:00: mouth [place] tablet 00 (three) Medical times [employer] daily. doxylamine Yes [id number] 25mg Take 1 [facility] nivers 25 mg 3-17 tablet by ity of tablet 00:00: mouth at [place] 00 bedtime. Medical [facility] pyridoxine, Yes [id number] 25mg Take 1 [facility] VITAMIN 3-17 tablet by [facility] B-6, 25 mg 00:00: mouth [place] tablet 00 (three) Medical times [employer] daily. doxylamine Yes [id number] 25mg Take 1 [facility] nivers 25 mg 3-17 tablet by [facility] of tablet 00:00: mouth at [place] 00 bedtime. Medical [facility] pyridoxine, Yes [id number] 25mg Take 1 [facility] VITAMIN 3-17 tablet by [facility] of B-6, 25 mg 00:00: mouth [place] tablet 00 (three) Medical times [employer] daily. doxylamine Yes [id number] 25mg Take 1 [facility] nivers 25 mg 3-17 tablet by [facility]y of tablet 00:00: mouth at [place] 00 bedtime. Medical Branch pyridoxine, Yes [id number] 25mg Take 1 [facility] VITAMIN 3-17 tablet by [facility] of B-6, 25 mg 00:00: mouth 3 [place] tablet 00 (three) Medical times [employer] daily. doxylamine Yes [id number] 25mg Take 1 [facility] nivers 25 mg 3-17 tablet by [facility]y of tablet 00:00: mouth at [place] 00 bedtime. Medical [facility] pyridoxine, Yes [id number] 25mg Take 1 [facility] VITAMIN 3-17 tablet by [facility] of B-6, 25 mg 00:00: mouth 3 [place] tablet 00 (three) Medical times [employer] daily. doxylamine Yes [id number] 25mg Take 1 [facility] nivers 25 mg 3-17 tablet by [facility] of tablet 00:00: mouth at [place] 00 bedtime. Medical [facility] pyridoxine, Yes [id number] 25mg Take 1 [facility] VITAMIN 3-17 tablet by [facility] of B-6, 25 mg 00:00: mouth 3 [place] tablet 00 (three) Medical times Branch daily. doxylamine Yes [id number] 25mg Take 1 [facility] nivers 25 mg 3-17 tablet by [facility] of tablet 00:00: mouth at [place] 00 bedtime. Medical Branch pyridoxine, 0 Yes [id number] 25mg Take 1 [facility] VITAMIN 3-17 tablet by [facility] of B-6, 25 mg 00:00: mouth 3 [place] tablet 00 (three) Medical times [facility] daily. doxylamine 0 Yes [id number] 25mg Take 1 [facility] nivers 25 mg 3-17 tablet by [facility] of tablet 00:00: mouth at [place] 00 bedtime. Medical [facility] pyridoxine, Yes [id number] 25mg Take 1 [facility] VITAMIN 3-17 tablet by [facility] of B-6, 25 mg 00:00: mouth 3 [place] tablet 00 (three) Medical times [facility] daily. doxylamine Yes [id number] 25mg Take 1 [facility] nivers 25 mg 3-17 tablet by [facility] of tablet 00:00: mouth at [place] 00 bedtime. Medical [facility] pyridoxine, Yes [id number] 25mg Take 1 [facility] VITAMIN 3-17 tablet by [facility] of B-6, 25 mg 00:00: mouth 3 [place] tablet 00 (three) Medical times Branch daily. doxylamine 0 Yes [id number] 25mg Take 1 [facility] nivers 25 mg 3-17 tablet by [facility] of tablet 00:00: mouth at [place] 00 bedtime. Medical [facility] pyridoxine, 0 Yes [id number] 25mg Take 1 [facility] VITAMIN 3-17 tablet by [facility] of B-6, 25 mg 00:00: mouth 3 [place] tablet 00 (three) Medical times [facility] daily. doxylamine 0 Yes [id number] 25mg Take 1 [facility] nivers 25 mg 3-17 tablet by [facility] of tablet 00:00: mouth at [place] 00 bedtime. Medical [facility] pyridoxine, 0 Yes [id number] 25mg Take 1 [facility] VITAMIN 3-17 tablet by [facility] of B-6, 25 mg 00:00: mouth 3 [place] tablet 00 (three) Medical times [facility] daily. doxylamine 0 Yes [id number] 25mg Take 1 [facility] nivers 25 mg 3-17 tablet by [facility] of tablet 00:00: mouth at [place] 00 bedtime. Medical [facility] pyridoxine, Yes [id number] 25mg Take 1 [facility] VITAMIN 3-17 tablet by [facility] of B-6, 25 mg 00:00: mouth 3 [place] tablet 00 (three) Medical times Branch daily. doxylamine Yes [id number] 25mg Take 1 [facility] nivers 25 mg 3-17 tablet by [facility] of tablet 00:00: mouth at [place] 00 bedtime. Medical [facility] pyridoxine, Yes [id number] 25mg Take 1 [facility] VITAMIN 3-17 tablet by [facility] of B-6, 25 mg 00:00: mouth 3 [place] tablet 00 (three) Medical times Branch daily. doxylamine Yes [id number] 25mg Take 1 [facility] nivers 25 mg 3-17 tablet by [facility] of tablet 00:00: mouth at [place] 00 bedtime. Medical [facility] pyridoxine, Yes [id number] 25mg Take 1 [facility] VITAMIN 3-17 tablet by [facility] of B-6, 25 mg 00:00: mouth 3 [place] tablet 00 (three) Medical times [facility] daily. doxylamine Yes [id number] 25mg Take 1 [facility] nivers 25 mg 3-17 tablet by [facility]y of tablet 00:00: mouth at [place] 00 bedtime. Medical Branch pyridoxine, 2021- No [id number] 25mg Take 1 [facility] VITAMIN 3-17 12-27 tablet by ity of B-6, 25 mg 00:00: 00:00 mouth 3 [place] tablet 00 :00 (three) Medical times Branch daily. doxylamine 2021- No [id number] 25mg Take 1 [facility] 25 mg 3-17 12-27 tablet by ity of tablet 00:00: 00:00 mouth at [place] 00 :00 bedtime. Medical Branch pyridoxine, 2021- No [id number] 25mg Take 1 [facility] VITAMIN 3-17 12-27 tablet by ity of B-6, 25 mg 00:00: 00:00 mouth 3 [place] tablet 00 :00 (three) Medical times Branch daily. doxylamine 2021- No [id number] 25mg Take 1 [facility] 25 mg 3-17 12-27 tablet by ity of tablet 00:00: 00:00 mouth at [place] 00 :00 bedtime. Medical Branch Yes [id number] 1{tbl} Take 1 [facility] vit w/iron 3-08 tablet by ity of fumarate 00:00: mouth [place] and [facility] 00 daily. Medical ( Branch VITAMIN WITH MINERALS) tablet Yes [id number] 1{tbl} Take 1 [facility] vit w/iron 3-08 tablet by ity of fumarate 00:00: mouth [place] and [place] 00 daily. Medical ( Branch VITAMIN WITH MINERALS) tablet Yes [id number] 1{tbl} Take 1 [facility] vit w/iron 3-08 tablet by ity of fumarate 00:00: mouth [place] and [facility] 00 daily. Medical ( Branch VITAMIN WITH MINERALS) tablet Yes [id number] 1{tbl} Take 1 [facility] vit w/iron 3-08 tablet by ity of fumarate 00:00: mouth [place] and [facility] 00 daily. Medical ( Branch VITAMIN WITH MINERALS) tablet Yes [id number] 1{tbl} Take 1 [facility] vit w/iron 3-08 tablet by ity of fumarate 00:00: mouth [place] and [facility] 00 daily. Medical ( Branch VITAMIN WITH MINERALS) tablet Yes [id number] 1{tbl} Take 1 [facility] vit w/iron 3-08 tablet by ity of fumarate 00:00: mouth [place] and [facility] 00 daily. Medical ( Branch VITAMIN WITH MINERALS) tablet Yes [id number] 1{tbl} Take 1 [facility] vit w/iron 3-08 tablet by ity of fumarate 00:00: mouth [place] and [place] 00 daily. Medical ( Branch VITAMIN WITH MINERALS) tablet Yes [id number] 1{tbl} Take 1 [facility] vit w/iron 3-08 tablet by ity of fumarate 00:00: mouth [place] and [facility] 00 daily. Medical ( Branch VITAMIN WITH MINERALS) tablet Yes [id number] 1{tbl} Take 1 [facility] vit w/iron 3-08 tablet by ity of fumarate 00:00: mouth [place] and [facility] 00 daily. Medical ( Branch VITAMIN WITH MINERALS) tablet Yes [id number] 1{tbl} Take 1 [facility] vit w/iron 3-08 tablet by ity of fumarate 00:00: mouth [place] and [facility] 00 daily. Medical ( Branch VITAMIN WITH MINERALS) tablet Yes [id number] 1{tbl} Take 1 [facility] vit w/iron 3-08 tablet by ity of fumarate 00:00: mouth [place] and [facility] 00 daily. Medical ( Branch VITAMIN WITH MINERALS) tablet Yes [id number] 1{tbl} Take 1 [facility] vit w/iron 3-08 tablet by ity of fumarate 00:00: mouth [place] and [facility] 00 daily. Medical ( Branch VITAMIN WITH MINERALS) tablet Yes [id number] 1{tbl} Take 1 [facility] vit w/iron 3-08 tablet by ity of fumarate 00:00: mouth [place] and [facility] 00 daily. Medical ( Branch VITAMIN WITH MINERALS) tablet Yes [id number] 1{tbl} Take 1 [facility] vit w/iron 3-08 tablet by ity of fumarate 00:00: mouth [place] and [facility] 00 daily. Medical ( Branch VITAMIN WITH MINERALS) tablet Yes [id number] 1{tbl} Take 1 [facility] vit w/iron 3-08 tablet by ity of fumarate 00:00: mouth [place] and [facility] 00 daily. Medical ( Branch VITAMIN WITH MINERALS) tablet Yes [id number] 1{tbl} Take 1 [facility] vit w/iron 3-08 tablet by ity of fumarate 00:00: mouth [place] and FA 00 daily. Medical ( Branch VITAMIN WITH MINERALS) tablet Yes [id number] 1{tbl} Take 1 [facility] vit w/iron 3-08 tablet by ity of fumarate 00:00: mouth [place] and FA 00 daily. Medical ( Branch VITAMIN WITH MINERALS) tablet Yes [id number] 1{tbl} Take 1 [facility] vit w/iron 3-08 tablet by ity of fumarate 00:00: mouth [place] and FA 00 daily. Medical ( Branch VITAMIN WITH MINERALS) tablet Yes [id number] 1{tbl} Take 1 [facility] vit w/iron 3-08 tablet by ity of fumarate 00:00: mouth [place] and FA 00 daily. Medical ( Branch VITAMIN WITH MINERALS) tablet Yes [id number] 1{tbl} Take 1 [facility] vit w/iron 3-08 tablet by ity of fumarate 00:00: mouth [place] and FA 00 daily. Medical ( Branch VITAMIN WITH MINERALS) tablet Yes [id number] 1{tbl} Take 1 [facility] vit w/iron 3-08 tablet by ity of fumarate 00:00: mouth [place] and FA 00 daily. Medical ( Branch VITAMIN WITH MINERALS) tablet Yes [id number] 1{tbl} Take 1 [facility] vit w/iron 3-08 tablet by ity of fumarate 00:00: mouth [place] and FA 00 daily. Medical ( Branch VITAMIN WITH MINERALS) tablet Yes [id number] 1{tbl} Take 1 [facility] vit w/iron 3-08 tablet by ity of fumarate 00:00: mouth [place] and FA 00 daily. Medical ( Branch VITAMIN WITH MINERALS) tablet Yes [id number] 1{tbl} Take 1 [facility] vit w/iron 3-08 tablet by ity of fumarate 00:00: mouth [place] and FA 00 daily. Medical ( Branch VITAMIN WITH MINERALS) tablet Yes [id number] 1{tbl} Take 1 [facility] vit w/iron 3-08 tablet by ity of fumarate 00:00: mouth [place] and FA 00 daily. Medical ( Branch VITAMIN WITH MINERALS) tablet Yes [id number] 1{tbl} Take 1 [facility] vit w/iron 3-08 tablet by ity of fumarate 00:00: mouth [place] and FA 00 daily. Medical ( Branch VITAMIN WITH MINERALS) tablet Yes [id number] 1{tbl} Take 1 [facility] vit w/iron 3-08 tablet by ity of fumarate 00:00: mouth [place] and FA 00 daily. Medical ( Branch VITAMIN WITH MINERALS) tablet Yes [id number] 1{tbl} Take 1 [facility] vit w/iron 3-08 tablet by ity of fumarate 00:00: mouth [place] and FA 00 daily. Medical ( Branch VITAMIN WITH MINERALS) tablet Yes [id number] 1{tbl} Take 1 [facility] vit w/iron 3-08 tablet by ity of fumarate 00:00: mouth [place] and [facility] 00 daily. Medical ( Branch VITAMIN WITH MINERALS) tablet Yes [id number] 1{tbl} Take 1 [facility] vit w/iron 3-08 tablet by ity of fumarate 00:00: mouth [place] and [facility] 00 daily. Medical ( Branch VITAMIN WITH MINERALS) tablet Yes [id number] 1{tbl} Take 1 [facility] vit w/iron 3-08 tablet by ity of fumarate 00:00: mouth [place] and FA 00 daily. Medical ( Branch VITAMIN WITH MINERALS) tablet 2021- No [id number] 1{tbl} Take 1 [facility] vit w/iron 3-08 12-27 tablet by ity of fumarate 00:00: 00:00 mouth [place] and FA 00 :00 daily. Medical ( Branch VITAMIN WITH MINERALS) tablet 2021- No [id number] 1{tbl} Take 1 [facility] vit w/iron 3-08 12-27 tablet by ity of fumarate 00:00: 00:00 mouth [place] and FA 00 :00 daily. Medical ( Branch VITAMIN WITH MINERALS) tablet diphenhydra 2020-0 Yes Take by [facility] [facility] diphenhydra 2020-0 Yes Take by [facility] mine HCl 9-[address] (BENADRYL 16:43: [facility] l ORAL) Immunizations Ordered Filled Immunization Date Status Comments [facility] Immunization Name Name [facility] 2022-02-26 Completed [facility] 00:00:00 [facility] TDAP 2022-02-26 Completed [facility] of 00:00:00 [facility] TDAP 2022-02-26 Completed [facility] of 00:00:00 [facility] TDAP 2022-02-26 Completed [facility] of 00:00:00 [facility] TDAP 2022-02-26 Completed University of 00:00:00 [facility] TDAP 2022-02-26 Completed University of 00:00:00 [facility] TDAP 2022-02-26 Completed University of 00:00:00 [facility] TDAP 2022-02-26 Completed University of 00:00:00 [facility] TDAP 2022-02-26 Completed University of 00:00:00 [facility] TDAP 2022-02-26 Completed [facility] of 00:00:00 [place] [facility] TDAP 2022-02-26 Completed [facility] 00:00:00 [place] [facility] TDAP 2022-02-26 Completed [facility] of 00:00:00 [place] [facility] TDAP 2022-02-26 Completed [facility] of 00:00:00 [place] [facility] TDAP 2022-02-26 Completed [facility] 00:00:00 [place] [facility] TDAP 2022-02-26 Completed [facility] of 00:00:00 [place] [facility] TDAP 2022-02-26 Completed [facility] of 00:00:00 [place] [facility] TDAP 2022-02-26 Completed [facility] of 00:00:00 [place] [facility] TDAP 2022-02-26 Completed [facility] of 00:00:00 [place] [facility] TDAP 2022-02-26 Completed [facility] of 00:00:00 [place] [facility] TDAP 2022-02-26 Completed University of 00:00:00 [facility] TDAP 2022-02-26 Completed University of 00:00:00 [place] [facility] TDAP 2022-02-26 Completed [facility] of 00:00:00 [place] [facility] TDAP 2022-02-26 Completed [facility] of 00:00:00 [place] [facility] TDAP 2022-02-26 Completed [facility] of 00:00:00 [place] [facility] TDAP 2022-02-26 Completed [facility] of 00:00:00 [facility] Branch TDAP 2022-02-26 Completed [facility] of 00:00:00 [facility] Branch TDAP 2022-02-26 Completed University of 00:00:00 [facility] Branch TDAP 2022-02-26 Completed University of 00:00:00 [facility] Branch TDAP 2022-02-26 Completed University of 00:00:00 [facility] Vital Signs Vital Name Observation Time Observation Value Comments Source Systolic blood 2022-11-30 18:49:00 113 mm[Hg] Univer sity of pressure [facility] Diastolic blood 2022-11-30 18:49:00 79 mm[Hg] Unive rsity of pressure [facility] Heart rate 2022-11-30 18:49:00 87 /min [facility] Body temperature 2022-11-30 18:49:00 36.61 [place] [facility] ersity of [facility] Body height 2022-11-30 18:49:00 152.4 cm [facility] Branch Body weight 2022-11-30 18:49:00 89.132 kg [facility] [place] [facility] BMI 2022-11-30 18:49:00 38.38 kg/m2 [facility] [place] [facility] Systolic blood 2022-06-14 17:22:00 116 mm[Hg] Univer sity of pressure [place] [facility] Diastolic blood 2022-06-14 17:22:00 82 mm[Hg] Unive rsity of pressure [place] [facility] Heart rate 2022-06-14 17:22:00 103 /min [facility] [place] [facility] Body temperature 2022-06-14 17:22:00 37.11 [place] [facility] [place] [facility] Respiratory rate 2022-06-14 17:22:00 18 /min [facility] [place] [facility] Body height 2022-06-14 17:22:00 152.4 cm [facility] [place] [facility] Body weight 2022-06-14 17:22:00 83.462 kg [facility] [place] [facility] BMI 2022-06-14 17:22:00 35.94 kg/m2 [facility] [place] [facility] Systolic blood 2022-06-12 16:40:00 116 mm[Hg] Univer sity of pressure [place] [facility] Diastolic blood 2022-06-12 16:40:00 80 mm[Hg] Unive rsity of pressure [place] [facility] Heart rate 2022-06-12 16:40:00 79 /min [facility] [place] [facility] Respiratory rate 2022-06-12 16:40:00 18 /min [facility] [place] [facility] Body height 2022-06-12 16:40:00 152.4 cm [facility] [place] [facility] Body weight 2022-06-12 16:40:00 83.915 kg [facility] [place] [facility] BMI 2022-06-12 16:40:00 36.13 kg/m2 [facility] [place] [facility] Oxygen saturation in 2022-06-12 16:40:00 98 /min [facility] Arterial blood by [facility] Pulse oximetry Branch Systolic blood 2022-05-14 19:26:00 109 mm[Hg] Univer sity of pressure [place] [facility] Diastolic blood 2022-05-14 19:26:00 76 mm[Hg] Unive rsity of pressure [place] [facility] Heart rate 2022-05-14 19:26:00 75 /min [facility] [place] [facility] Body temperature 2022-05-14 19:26:00 36.67 [place] [facility] [place] [facility] Respiratory rate 2022-05-14 19:26:00 18 /min [facility] [place] [facility] Body height 2022-05-14 19:26:00 152.4 cm [facility] [place] [facility] Body weight 2022-05-14 19:26:00 81.194 kg [facility] [place] [facility] BMI 2022-05-14 19:26:00 34.96 kg/m2 [facility] [place] [facility] Systolic blood 2022-04-23 15:59:00 125 mm[Hg] Univer sity of pressure [place] [facility] Diastolic blood 2022-04-23 15:59:00 85 mm[Hg] Unive rsity of pressure [place] [facility] [employer] Heart rate 2022-04-23 15:59:00 88 /min [facility] [place] [facility] Body temperature 2022-04-23 15:59:00 36.72 [place] [facility] [place] [facility] Respiratory rate 2022-04-23 15:59:00 18 /min Univ ersity of [facility] Branch Body height 2022-04-23 15:59:00 152.4 cm [facility] [place] [facility] Body weight 2022-04-23 15:59:00 87.181 kg [facility] [place] [facility] BMI 2022-04-23 15:59:00 37.54 kg/m2 [facility] [place] [facility] Systolic blood 2022-04-17 17:47:00 111 mm[Hg] Univer sity of pressure [place] [facility] Diastolic blood 2022-04-17 17:47:00 75 mm[Hg] Unive rsity of pressure [place] [facility] Heart rate 2022-04-17 17:47:00 77 /min [facility] [place] [facility] Body temperature 2022-04-17 17:47:00 36.89 [place] [facility] [place] [facility] Respiratory rate 2022-04-17 17:47:00 18 /[facility] Oxygen saturation in 2022-04-17 17:47:00 99 /min [facility] Arterial blood by [facility] Pulse oximetry Branch Body height 2022-04-16 10:50:00 152.4 cm [facility] [place] [facility] Body weight 2022-04-16 10:50:00 91.173 kg [facility] [place] [facility] BMI 2022-04-16 10:50:00 39.26 kg/m2 [facility] [place] [facility] Systolic blood 2022-04-16 14:30:00 126 mm[Hg] Univer sity of pressure [place] [facility] Diastolic blood 2022-04-16 14:30:00 79 mm[Hg] Unive rsity of pressure [place] [facility] Heart rate 2022-04-16 14:30:00 91 /min [facility] [place] [facility] Body temperature 2022-04-16 14:30:00 36.67 [place] [facility] [place] [facility] Oxygen saturation in 2022-04-16 14:30:00 100 /min [facility] of Arterial blood by [facility] Pulse oximetry Branch Respiratory rate 2022-04-16 10:50:00 18 /min [facility] ers[facility] [place] [facility] Body height 2022-04-16 10:50:00 152.4 cm [facility] [place] [facility] Body weight 2022-04-16 10:50:00 91.173 kg [facility] [place] [facility] BMI 2022-04-16 10:50:00 39.26 kg/m2 [facility] [place] [facility] Systolic blood 2022-04-13 18:17:00 112 mm[Hg] Univer sity of pressure [place] [facility] Diastolic blood 2022-04-13 18:17:00 80 mm[Hg] Unive rsity of pressure [place] [facility] Heart rate 2022-04-13 18:17:00 88 /min [facility] [place] [facility] Body temperature 2022-04-13 18:17:00 36.83 [place] [facility] [place] [facility] Respiratory rate 2022-04-13 18:17:00 18 /min [facility] [place] [facility] Body height 2022-04-13 18:17:00 152.4 cm [facility] [place] [facility] Body weight 2022-04-13 18:17:00 91.173 kg [facility] [place] [facility] BMI 2022-04-13 18:17:00 39.26 kg/m2 [facility] [place] [facility] Systolic blood 2022-04-06 16:02:00 118 mm[Hg] Univer sity of pressure [place] [facility] Diastolic blood 2022-04-06 16:02:00 79 mm[Hg] Unive rsity of pressure [place] [facility] Heart rate 2022-04-06 16:02:00 89 /min [facility] [place] [facility] Body temperature 2022-04-06 16:02:00 36.83 [place] [facility] [place] [facility] Respiratory rate 2022-04-06 16:02:00 16 /min [facility] [place] [facility] Body height 2022-04-06 16:02:00 152.4 cm [facility] [place] [facility] Body weight 2022-04-06 16:02:00 91.128 kg [facility] [place] [facility] BMI 2022-04-06 16:02:00 39.24 kg/m2 [facility] [place] [facility] Oxygen saturation in 2022-04-06 16:02:00 97 /min [facility] of Arterial blood by [facility] Pulse oximetry Branch Systolic blood 2022-04-03 18:24:00 114 mm[Hg] Univer sity of pressure [place] [facility] Diastolic blood 2022-04-03 18:24:00 80 mm[Hg] Unive rsity of pressure [place] [facility] Heart rate 2022-04-03 18:24:00 71 /min [facility] [place] [facility] Body temperature 2022-04-03 18:24:00 36.56 [facility] [place] [facility] Respiratory rate 2022-04-03 18:24:00 18 /min [facility] [place] [facility] Body height 2022-04-03 18:24:00 152.4 cm [facility] Body weight 2022-04-03 18:24:00 91.173 kg [facility] BMI 2022-04-03 18:24:00 39.26 kg/m2 [facility] Systolic blood 2022-03-28 19:49:00 111 mm[Hg] [facility] Diastolic blood 2022-03-28 19:49:00 79 mm[Hg] [facility] Heart rate 2022-03-28 19:49:00 78 /min [facility] Body temperature 2022-03-28 19:49:00 36.78 Mariza [facility] Respiratory rate 2022-03-28 19:49:00 17 /min [facility] Body height 2022-03-28 19:49:00 152.4 cm [facility] Body weight 2022-03-28 19:49:00 90.402 kg [facility] BMI 2022-03-28 19:49:00 38.92 kg/m2 [facility] Systolic blood 2022-03-21 16:16:00 109 mm[Hg] [facility] Diastolic blood 2022-03-21 16:16:00 76 mm[Hg] [facility] Heart rate 2022-03-21 16:16:00 97 /min [facility] Body temperature 2022-03-21 16:16:00 36.72 Mariza [facility] Respiratory rate 2022-03-21 16:16:00 18 /min [facility] Body height 2022-03-21 16:16:00 152.4 cm [facility] Body weight 2022-03-21 16:16:00 88.905 kg [facility] BMI 2022-03-21 16:16:00 38.28 kg/m2 [facility] Systolic blood 2022-02-26 14:41:00 100 mm[Hg] [facility] Diastolic blood 2022-02-26 14:41:00 72 mm[Hg] [facility] Heart rate 2022-02-26 14:41:00 88 /min [facility] Body temperature 2022-02-26 14:41:00 36.72 Mariza [facility] Respiratory rate 2022-02-26 14:41:00 18 /min [facility] Body height 2022-02-26 14:41:00 152.4 cm [facility] Body weight 2022-02-26 14:41:00 86.637 kg [facility] BMI 2022-02-26 14:41:00 37.30 kg/m2 [facility] Systolic blood 2022-02-12 16:04:00 95 mm[Hg] [facility] Diastolic blood 2022-02-12 16:04:00 65 mm[Hg] [facility] Heart rate 2022-02-12 16:04:00 91 /min [facility] Body temperature 2022-02-12 16:04:00 36.72 Mariza [facility] Respiratory rate 2022-02-12 16:04:00 18 /min [facility] Body height 2022-02-12 16:04:00 152.4 cm [facility] Body weight 2022-02-12 16:04:00 86.637 kg [facility] BMI 2022-02-12 16:04:00 37.30 kg/m2 [facility] Systolic blood 2022-01-22 18:33:00 117 mm[Hg] [facility] Diastolic blood 2022-01-22 18:33:00 76 mm[Hg] [facility] Heart rate 2022-01-22 18:33:00 83 /min [facility] Body temperature 2022-01-22 18:33:00 36.72 Mariza [facility] Respiratory rate 2022-01-22 18:33:00 18 /min [facility] Body height 2022-01-22 18:33:00 152.4 cm [facility] Body weight 2022-01-22 18:33:00 87.091 kg [facility] BMI 2022-01-22 18:33:00 37.50 kg/m2 [facility] Systolic blood 2021-12-25 18:43:00 106 mm[Hg] [facility] Diastolic blood 2021-12-25 18:43:00 63 mm[Hg] [facility] Heart rate 2021-12-25 18:43:00 65 /min [facility] Body temperature 2021-12-25 18:43:00 36.89 Mariza [facility] 2021-12-25 18:43:00 18 /min [facility] Body height 2021-12-25 18:43:00 152.4 cm [facility] Body weight 2021-12-25 18:43:00 84.233 kg [facility] BMI 2021-12-25 18:43:00 36.27 kg/m2 [facility] Systolic blood 2021-11-09 13:10:00 115 mm[Hg] [facility]iver [facility] of pressure [facility] Diastolic blood 2021-11-09 13:10:00 81 mm[Hg] [facility] Heart rate 2021-11-09 13:10:00 90 /min [facility] Respiratory rate 2021-11-09 13:10:00 18 /min [facility] Body height 2021-11-09 13:10:00 152.4 cm [facility] Body weight 2021-11-09 13:10:00 84.086 kg [facility] BMI 2021-11-09 13:10:00 36.20 kg/m2 [facility] Oxygen saturation in 2021-11-09 13:10:00 98 /min [facility] Arterial blood by [facility] Pulse oximetry Branch Procedures Procedure Date / Time Performing Clinician Source Performed ASSIGNMENT OF BENEFITS 2022-11-30 18:20:12 Doctor Unassigned, No [facility] CONSENT/REFUSAL FOR 2022-06-18 16:02:58 Doctor Unassigned, No [facility] DIAGNOSIS AND TREATMENT [facility] ASSIGNMENT OF BENEFITS 2022-06-18 16:02:44 Doctor Unassigned, No [facility] CBC WITH DIFF 2022-04-17 09:10:00 Gely Leon [facility] CBC WITH DIFF 2022-04-17 09:10:00 Gely Leon [facility] SECTION 2022-04-16 12:42:00 Gely Leon [facility] SECTION 2022-04-16 12:42:00 Gely Leon [facility] ASSIGNMENT OF BENEFITS 2022-04-14 14:52:26 Doctor Unassigned, No [facility] POCT URINALYSIS W/O 2022-04-13 00:00:00 Gely Leon [facility] POCT URINALYSIS W/O 2022-04-03 00:00:00 Adum, Shiloh Hansen [facility] DSU PRE-OP 2022-03-28 05:01:00 Doctor Unassigned, No [facility] DSU PRE-OP 2022-03-28 05:01:00 Doctor Unassigned, No [facility] POCT URINALYSIS W/O 2022-03-28 00:00:00 Adum, Shiloh Hansen [facility] POCT URINALYSIS W/O 2022-03-21 00:00:00 Adum, Shiloh Hansen [facility] TDAP VACCINE, >11 YRS, 2022-02-26 14:42:40 Nimisha Soto [facility] POCT URINALYSIS W/O 2022-02-26 00:00:00 Nimisha Soto [facility] DME/SUPPLY JUSTIFICATION 2022-02-20 05:01:00 Doctor Unassigned, No [facility] STERILIZATION CONSENT 2022-02-12 05:01:00 Doctor Unassigned, No [facility] POCT URINALYSIS W/O 2022-02-12 00:00:00 Nimisha Soto [facility] CBC (INCLUDES 2022-01-29 14:43:00 Nimisha Soto [place] DIFF/PLT)-Q [facility] POCT URINALYSIS W/O 2022-01-22 18:40:00 Nimisha Soto [facility] POCT URINALYSIS W/O 2021-12-25 00:00:00 Nimisha Soto [facility] POCT URINALYSIS W/O 2021-11-09 13:12:00 Nimisha Soto [facility] Plan of Care Planned Activity Planned Date Details Comments Source Future Scheduled 2023-02-08 COVID-19 VACCINE [facility] Test 13:05:24 (#1) [code = COVID-19 VACCINE (#1)] Future Scheduled 2023-02-08 [facility] 13[facility]05:24 screening (procedure) [code = 793988102] Future Scheduled 2023-02-08 [facility] Test 13:05:24 malignant neoplasm of cervix (procedure) [code = 450203291] Future Scheduled 2023-02-08 [facility]INE [facility] 13:05:24 (#1) [code = INFLUENZA VACCINE (#1)] Future Scheduled 2022-06-01 [facility] 13:14:51 [code = INFLUENZA VACCINE] Future Scheduled 2022-06-01 COVID-19 VACCINE [facility] Test 13:14:51 (#1) [code = COVID-19 VACCINE (#1)] Future Scheduled 2022-06-01 [facility] 13:14:51 screening (procedure) [code = 354391306] Encounters Start End Encounter Admission Attending Care Care Encounter Source Date/Time Date/Time Type Type Clinicians Facility Department ID 2023-12-06 2023-12-06 Outpatient R GELY LEON [facility] [id number] Univers 13:30:00 13:30:00 ity [facility] 2022-11-30 2022-11-30 Outpatient R GELY LEON [facility] [id number] Univers 13:30:00 14:07:29 ity [facility] 2022-11-30 2022-11-30 Office Gely Leon [facility] 1.2.840.114 [id number] Univers 13:30:00 14:07:29 Visit Mike HEARD 350.1.13.10 it y of WOMEN'S 4.2.7.2.686 [facility] [id number] [address] 2022-11-30 2022-11-30 Orders Doctor SLADE 1.2.840.114 [id number] Univers 00:00:00 00:00:00 Only Unassigned, BRIGIDA 350.1.13.10 ity [place] [facility] 4.2.7.2.686 Aidan as [id number] [facility] [address] 2022-06-18 2022-06-18 Outpatient R GELY LEON [facility] [id number] Univers 10:08:25 23:59:00 ity of [facility] 2022-06-18 2022-06-18 Hospital Gely Leon [facility] 1.2.840.114 [id number] Univers 10:00:00 23:59:00 Encounter Mike [place] 350.1.13.10 [place] [id number] [facility] [address] [employer] 2022-06-14 2022-06-14 Emergency Medical Service Coordinator Zaid, Tea Lab Main [facility] 1.2.8 40.114 [id number] Univers 12:15:00 12:30:00 Visit Gely Leon Mike MCCALL 350.1.13.10 [place] [id number] Vt dical NAL 353 [facility] 2022-06-14 2022-06-14 Outpatient R GELY LEON [facility] [id number] Univers 12:15:00 12:15:00 ity of [facility] 2022-06-14 2022-06-14 Office Gely Leon [facility] 1.2.600.722 [id number] Univers 11:00:00 11:57:01 Visit Mike [place] 350.1.13.10 i [place] [id number] Vt dical NAL 134 [facility] 2022-06-12 2022-06-12 Outpatient R GELY LEON [facility] [id number] Univers 10:30:00 11:33:53 ity of [facility] 2022-06-12 2022-06-12 Office [facility] 1.2.917.112 [id number] Univers 10:30:00 11:33:53 Visit Mike [place] 350.1.13.10 i [place] [id number] Vt dical NAL 134 [facility] 2022-06-12 2022-06-12 Telephone Gely Leon [facility] 1.2.840.114 [id number] Univers 00:00:00 00:00:00 Cam [place] 350.1.13.10 i [facility] [place] [id number] Vt dic[address] 2022-05-31 2022-05-31 Telephone Tamanna [facility] 1.2.840.114 [id number] Univers 00:00:00 00:00:00 Tiffanie FÉLIX 350.1.13.10 [place] [facility] [id number] [address] 2022-05-14 2022-05-14 Outpatient R LEON GELY [facility] [id number] Univers 13:00:00 14:07:31 ity of [facility] 2022-05-14 2022-05-14 Routine Cele Tabares [facility] 1.2.840.11 [id number] Univers 13:00:00 14:07:31 Gely LeonZELALEM 350.1.13.10 ity of [place] [id number] Vt dic[address] 2022-04-23 2022-04-23 Outpatient R GELY LEON [facility] [id number] Univers 09:45:00 10:33:47 ity of [facility] 2022-04-23 2022-04-23 Routine [facility] 1.2.122.947 [id number] Univers 09:45:00 10:33:47 Cam [place] 350.1.13.10 ity of [place] [id number] Vt dical [address] 2022-04-18 2022-04-18 Case Gely Leon [facility] 1.2.690.209 [id number] Univers 00:00:00 00:00:00 Management Cam [place] 350.1.13.10 [facility] [place] [id number] Vt dical NAL 134 [facility] 2022-04-18 2022-04-18 Patient Gely Leon [facility] 1.2.413.901 [id number] Univers 00:00:00 00:00:00 Secure Msg Cam [place] 350.1.13.10 [place] [id number] Vt dical NAL 134 [facility] 2022-04-18 2022-04-18 Telephone Gely Leon [facility] 1.2.840.114 [id number] Univers 00:00:00 00:00:00 Cam [place] 350.1.13.10 i [place] [id number] Vt dical NAL 134 [facility] 2022-04-16 2022-04-17 [facility] [id number] Univers 05:29:00 20:20:00 ity of [facility] 2022-04-16 2022-04-17 Hospital Gely Leon [facility] 1.2.840.114 [id number] Univers 05:29:00 20:20:00 Encounter Cam [place] 350.1.13.10 [place] [id number] [facility] [address] [employer] 2022-04-16 2022-04-16 [facility] 1.2.831.112 [id number] Univers 07:45:00 09:36:00 Cam [place] 350.1.13.10 [place] [id number] [facility] [address] [employer] 2022-04-14 2022-04-14 Emergency Medical Service Coordinator Zaid, Tea Lab Main [facility] 1.2.8 40.114 [id number] Univers 10:00:00 10:15:00 Visit Gely Leon [place] 350.1.13.10 it[place] [id number] Vt dical NAL 353 [facility] 2022-04-14 2022-04-14 Outpatient R LEON, [facility] [id number] Univers 10:00:00 10:00:00 ity [facility] 2022-04-14 2022-04-14 Orders Doctor JUNE 1.2.840.114 [id number] Univers 00:00:00 00:00:00 Only Unassigned, BRIGIDA 350.1.13.10 ity of [place] [facility] 4.2.7.2.686 Aidan as [id number] [address] 2022-04-13 2022-04-13 Outpatient R EDWARD [facility] [id number] Univers 13:00:00 13:50:44 ity [facility] 2022-04-13 2022-04-13 [facility] 1.2.840.114 [id number] Univers 13:00:00 13:50:44 Mike HEARD 350.1.13.10 i ty [place] [id number] [address] 2022-04-10 2022-04-10 [facility] [id number] Univers 10:00:00 10:00:00 SHILOH rivas [facility] 2022-04-06 2022-04-06 Outpatient R EDWARD [facility] [id number] Univers 10:45:00 11:34:05 ity [facility] 2022-04-06 2022-04-06 [facility] 1.2.840.114 [id number] Univers 10:45:00 11:34:05 Mike HEARD 350.1.13.10 i ty [place] [id number] [address] 2022-04-03 2022-04-03 [facility] [id number] Univers 13:00:00 13:37:16 SHILOH itbryn [facility] 2022-04-03 2022-04-[address] [facility] 1.2.162.738 [id number] Univers 13:00:00 13:37:16 Shiloh HEARD 350.1.13.10 it[place] [id number] [address] 2022-03-28 2022-03-28 Outpatient R ADUM, [facility] [id number] Univers 14:15:00 15:07:41 SHILOH rivas [facility] 2022-03-28 2022-03-28 Routine Adum, [facility] 1.2.268.887 [id number] Univers 14:15:00 15:07:41 Shiloh HEARD 350.1.13.10 it[place] [id number] [address] 2022-03-26 2022-03-26 [facility] 1.2.840.114 [id number] Univers 00:00:00 00:00:00 Shiloh Hansen FÉLIX 350.1.13.10 i [place] [id number] [address] 2022-03-21 2022-03-21 Outpatient R ADUM, [facility] [id number] Univers 11:15:00 11:48:08 SHILOH rivas [facility] 2022-03-21 2022-03-[address] [facility] 1.2.631.965 [id number] Univers 11:15:00 11:48:08 Shiloh HEARD 350.1.13.10 [place] [id number] [address] 2022-03-14 2022-03-14 Outpatient R ADUM, [facility] [id number] Univers 11:00:00 11:00:00 SHILOH rivas [facility] 2022-03-12 2022-03-12 [facility] 1.2.023.160 [id number] Univers 00:00:00 00:00:00 Shiloh Tyrone MCCALL 350.1.13.10 [place] [id number] Me dical [address] 2022-02-26 2022-02-26 Outpatient R NIMISHA SOTO [facility] [id number] Univers 09:30:00 09:59:42 ity of [facility] 2022-02-26 2022-02-26 Routine Nimisha Soto 1.2.840.114 [id number] Univers 09:30:00 09:59:42 FÉLIX 350.1.13.10 i ty [place] [id number] [address] 2022-02-20 2022-02-20 Telephone Nimisha Soto 1.2.840.11 [id number] Univers 00:00:00 00:00:00 FÉLIX 350.1.13.10 it [place] [id number] [address] 2022-02-20 2022-02-20 Orders Doctor SLADE 1.2.840.114 [id number] Univers 00:00:00 00:00:00 Only Unassigned, BRIGIDA 350.1.13.10 ity of [place] [facility] 4.2.7.2.686 Aidan as [id number] [address] 2022-02-12 2022-02-12 Outpatient R NIMISHA SOTO [facility] [id number] Univers 11:00:00 11:52:24 ity of [facility] 2022-02-12 2022-02-12 Routine Nimisha Soto 1.2.840.114 [id number] Univers 11:00:00 11:52:24 FÉLIX 350.1.13.10 i ty [place] [id number] [address] 2022-02-12 2022-02-12 Orders Doctor SLADE 1.2.840.114 [id number] Univers 00:00:00 00:00:00 Only Unassigned, BRIGIDA 350.1.13.10 ity of [place] [facility] 4.2.7.2.686 Aidan as [id number] [address] 2022-02-05 2022-02-05 Outpatient R NIMISHA SOTO [facility] [id number] Univers 13:45:00 13:45:00 ity of [facility] 2022-02-01 2022-02-01 Case Nimisha Soto 1.2.840.114 [id number] Univers 00:00:00 00:00:00 Management FÉLIX 350.1.13.10 [place] [id number] [address] 2022-01-31 2022-01-31 Patient Nimisha Soto 1.2.840.114 [id number] Univers 00:00:00 00:00:00 Secure Msg FÉLIX 350.1.13.10 [place] [id number] [address] 2022-01-29 2022-01-29 Orders Nimisha Soto 1.2.840.114 [id number] Univers 00:00:00 00:00:00 Only BRIGIDA 350.1.13.10 it y of [facility] 4.2.7.2.686 Aidan as [id number] [address] 2022-01-22 2022-01-22 Outpatient R NIMISHA SOTO [facility] [id number] Univers 13:30:00 14:07:01 ity of [facility] 2022-01-22 2022-01-22 Routine Nimisha Soto 1.2.840.114 [id number] Univers 13:30:00 14:07:01 FÉLIX 350.1.13.10 i ty of Visit [place]S 4.2.7.2.686 [facility] [id number] [address] 2021-12-25 2021-12-25 Outpatient R NIMISHA SOTO [facility] [id number] Univers 13:15:00 14:15:52 ity of [facility] 2021-12-25 2021-12-25 Routine Nimisha Soto 1.2.840.114 [id number] Univers 13:15:00 14:15:52 FÉLIX 350.1.13.10 i ty of Visit WOMEN'S 4.2.7.2.686 [facility]ALTH [id number] [address] 2021-12-06 2021-12-06 Emergency Medical Service Coordinator [facility] 1.2 .840.114 [id number] Univers 10:45:00 12:00:00 Visit Lizzeth BriseidaRik [employer] 350.1. 13.[address] [facility] 4.2.7.2.686 Aidan as MATERNAL [id number] [facility] ical & CHILD [address] [place] [address] 2021-12-06 2021-12-06 Outpatient P LIZZETH [facility] [id number] Univers 10:45:00 10:45:00 MOLLY it y of [place] [facility] 2021-12-04 2021-12-04 Outpatient R NIMISHA SOTO [facility] [id number] Univers 10:30:00 10:30:00 ity [facility] 2021-11-09 2021-11-09 Outpatient R NIMISHA SOTO [facility] [id number] Univers 10:45:00 10:45:00 ity [facility] 2021-11-09 2021-11-09 Outpatient R NIMISHA SOTO [facility] [id number] Univers 08:00:00 08:33:56 ity [facility] 2021-11-09 2021-11-09 Routine Nimisha Soto [facility] 1.2.840.114 [id number] Univers 08:00:00 08:33:56 FÉLIX 350.1.13.10 i ty [place] [id number] [address] 2021-11-09 2021-11-09 Outpatient R NIMISHA SOTO [facility] [id number] Univers 08:00:00 08:33:56 ity [facility] 2021-11-01 2021-11-01 Telephone Nimisha Soto [facility] 1.2.840.11 [id number] Univers 00:00:00 00:00:00 FÉLIX 350.1.13.10 it y of WOMEN'S 4.2.7.2.686 [facility] [id number] [facility] [address] 2021-10-21 2021-10-21 Orders Doctor SLADE 1.2.840.114 [id number] Univers 00:00:00 00:00:00 Only Unassigned, BRIGIDA 350.1.13.10 ity of [place] [facility] 4.2.7.2.686 Aidan as [id number] [facility] [address] 2021-10-13 2021-10-13 Emergency Medical Service Coordinator 2, Adc Lab [facility] 1.2.840.114 [id number] Univers 09:00:00 09:15:00 Visit Nimisha Soto 350.1.13.10 it[place] [id number] Vt dical [address] 2021-10-13 2021-10-13 Outpatient R [facility] [id number] Univers 09:00:00 09:00:00 ity of [facility] 2021-10-13 2021-10-13 Outpatient R NIMISHA SOTO [facility] [id number] Univers 09:00:00 09:00:00 ity of [facility] 2021-10-12 2021-10-12 Outpatient R NIMISHA SOTO [facility] [id number] Univers 10:30:00 11:59:01 ity [facility] 2021-10-12 2021-10-12 Routine Nimisha Soto [facility] SHERRY 1.2.840.114 [id number] Univers 10:30:00 11:59:01 FÉLIX 350.1.13.10 i ty [place] [id number] [facility] [address] 2021-09-14 2021-09-14 Outpatient R NIMISHA SOTO [facility] [id number] Univers 09:30:00 09:59:04 ity [facility] 2021-09-14 2021-09-14 Routine Nimisha Soto [facility] POWELL 1.2.840.114 [id number] Univers 09:30:00 09:59:04 FÉLIX 350.1.13.10 i ty [place] [id number] [address] 2021-09-14 2021-09-14 Outpatient R NIMISHA SOTO [facility] [id number] Univers 09:30:00 09:30:00 ity of [facility] 2021-09-07 2021-09-07 Emergency Medical Service Coordinator 2, Adc Lab [facility] 1.2.840.114 [id number] Univers 09:30:00 09:45:00 Visit Nimisha Soto 350.1.13.10 ity [place] [id number] [address] 2021-09-07 2021-09-07 Outpatient R NIMISHA SOTO [facility] [id number] Univers 09:30:00 09:30:00 ity of [facility] 2021-09-04 2021-09-04 Outpatient R [facility] [id number] Univers 09:30:00 09:30:00 ity of [facility] 2021-08-31 2021-08-31 Outpatient R NIMISHA SOTO [facility] [id number] Univers 10:45:00 11:45:13 ity [facility] 2021-08-31 2021-08-31 Routine Nimisha Soto [facility] 1.2.840.114 [id number] Univers 10:45:00 11:45:13 FÉLIX 350.1.13.10 i ty of Visit [place] 4[place] [id number] [address] 2021-08-31 2021-08-31 Orders Doctor [place] 1.2.840.114 [id number] Univers 00:00:00 00:00:00 Only Unassigned, BRIGIDA 350.1.13.10 ity of [place] [facility] 4.2.7.2.686 Aidan as [phone] [place] [id number] [place] 2021-08-24 2021-08-24 Emergency Medical Service Coordinator 2, Adc Lab [facility] [id number] Univers 09:30:00 09:45:00 Visit Nimisha Soto [id number] [place] [phone] Vt dical NAL 353 [facility] 2021-08-24 2021-08-24 Outpatient R NIMISHA SOTO [facility] [id number] Univers 09:30:00 09:30:00 ity of [facility] 2021-08-22 2021-08-22 Emergency Medical Service Coordinator 2, Adc Lab [facility] [id number] Univers 10:15:00 10:30:00 Visit Nimisha SotoZELALEM [id number] it[id number] [phone] Vt dical NAL 353 [facility] 2021-08-22 2021-08-22 Outpatient R NIMISHA SOTO [facility] [id number] Univers 08:30:00 09:40:10 ity of [facility] 2021-08-22 2021-08-22 Initial Nimisha Soto [facility] [id number] Univers 08:30:00 09:40:10 Lorraine MCCALL [id number] ity of [id number] [phone] Vt dical NAL 134 [facility] 2021-08-22 2021-08-22 Orders Doctor SLADE [id number] Univers 00:00:00 00:00:00 Only Unassigned, BRIGIDA [id number] ity of [place] [id number] Aidan as [phone] [facility] [address] [employer] 2020-02-23 2020-02-23 Outpatient [facility] [id number] [place] 00:00:00 00:00:[address] 2019-11-08 2019-11-08 Emergency Nicolasa VTKHALIDA 1.2.840.114 [id number] Univers 17:27:06 18:36:00 Loly Mccall [id number] [id number] [phone] [facility] 084 [employer] 2019-11-08 2019-11-08 Emergency X NICOLASA [facility] ERT [id number] Univers 17:27:06 17:27:06 LOLY [facility] Results Test Description Test Time Test Comments [...] code = 3257) N/A Negative - [facility] [id number] 18:25:00 Test Item Value Reference Range Interpretation [...] code = 3257) N/A Negative - Negative [facility] [id number] 19:51:00 Test Item Value Reference Range Interpretation [...] code = 3257) n/a Negative - Negative [facility] [id number] 16:22:00 Test Item Value Reference Range Interpretation [...] code = 3257) n/a Negative - Negative [facility] URINALYSIS W/O SPECIFIC [id number] 14:45:00 Test Item Value Reference Range Interpretation [...] code = 3257) N/A Negative - Negative [facility] URINALYSIS W/O SPECIFIC [id number] 16:10:00 Test Item Value Reference Range Interpretation [...] code = 3257) N/A Negative - Negative [facility] (INCLUDES DIFF/[id number] 10:00:00 Test Item Value Reference Interpretation Comments [...] 9.9 fL 7.5-12.5 776-5) ABSOLUTE See_Comment [Automated [employer]trus] NEUTROPHILS-Q (test The syst em which code = 751-8) generated this result transmitted ref erence range: 1500 - 7 800 cells/uL. The reference range was not used to int erpret this result as normal/abnormal . ABSOLUTE See_Comment [Automated [employer]] LYMPHOCYTES-Q (test The syst em which code = 731-0) generated this result transmitted ref erence range: 850 - 39 00 cells/uL. The reference range was not used to int erpret this result as normal/abnormal . ABSOLUTE See_Comment [Automated Videostrip joel] MONOCYTES-Q (test The system which code = 742-7) generated this result transmitted ref erence range: 200 - 95 0 cells/uL. The reference range was not used to int erpret this result as normal/abnormal . ABSOLUTE See_Comment [Automated Videostrip joel] EOSINOPHILS-Q (test The syst em which code = 711-2) generated this result transmitted ref erence range: 15 - 500 cells/uL. The reference range was not used to int erpret this result as normal/abnormal . ABSOLUTE See_Comment [Automated mes joel] BASOPHILS-Q (test The system which code = [...] PAM (test code = PERFORMED BY PAM) [employer] [place]; [address] [place] [id number]; LILIA WYATT MD Lab Interpretation Abnormal (test code = 76245-8) [facility] URINALYSIS W/O SPECIFIC [id number] 18:40:00 Test Item Value Reference Range Interpretation [...] code = 3257) n/a Negative - Negative [facility] [id number] 18:47:00 Test Item Value Reference Range Interpretation [...] code = 3257) n/a Negative - Negative [facility] SPECIFIC [id number] 13:14:00 Test Item Value Reference Range Interpretation [...] Negative Lab Interpretation (test code = Normal 44915-4) [facility]
== END 2023-02-10 03:39 | disposition home or self-care (01) ==
LOC: ER 03:14
DX: S80.02XA Contusion of left knee, initial encounter (principal)
CPT/HCPCS: 99282

== ENCOUNTER → 2023-06-29 | Emergency (ER) | payer BC ==
[~2023-06-29] MED LIST: IBUPROFEN 200 MG TAB PO ONE
[2023-06-29 06:24] LABS: Specific Gravity < 1.005 (1.005-1.030)
--- NOTE | 2023-06-29 07:58 | EDPHYS ---
Physician Documentation [facility] Name: Ramiro Tracy Age: 33 yrs Sex: Female : 1990 Arrival Date: 06/29/2023 Time: 05:16 Bed 16 Private MD: MORA Physician Cain Muniz HPI: 06/29 06:37 This 33 yrs old Female presents to ER via Ambulatory with complaints of Leg sp4 Swelling. 06:37 PMH - Allergies: No Known Allergies; PSHx: Cholecystectomy; ;. sp4 06:47 Patient reports left lower extremity pain and left knee posterior left knee, starting sp4 approximately 2 weeks ago. Patient is concerned about blood clot on the left lower extremity. Patient states she is not very active at home and mostly stays home with her 3 kids. Patient has history of bilateral tubal ligation 1 ago. History of cholecystectomy and as well. . 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 Flu vaccine is not up to date. - Social history:: Smoking status: Patient denies any tobacco usage or history of. Patient uses alcohol, occasionally. - Family history:: not pertinent. ROS: 06:47 Constitutional: Negative for fever, chills, and weight loss, positive for left lower sp4 extremity pain and left lower extremity swelling, positive left knee pain 06:47 All other systems are negative, Exam: 06:47 Constitutional: This is a well developed, well nourished patient who is awake, alert, sp4 and in no acute distress. Head/Face: Normocephalic, atraumatic. Eyes: Pupils equal round and reactive to light, extra-ocular motions intact. Lids and lashes normal. Conjunctiva and sclera are not injected. Cornea within normal limits. Periorbital areas with no swelling, redness, or edema. ENT: Nares patent. No nasal discharge, no septal abnormalities noted. Tympanic membranes are normal and external auditory canals are clear. Oropharynx with no redness, swelling, or masses, exudates, or evidence of obstruction, uvula midline. Mucous membranes moist. Neck: Trachea midline, no thyromegaly or masses palpated, and no cervical lymphadenopathy. Supple, full range of motion without nuchal rigidity, or vertebral point tenderness. Chest/axilla: Normal chest wall appearance and motion. Nontender with no deformity. No lesions are appreciated. Cardiovascular: Regular rate and rhythm with a normal S1 and S2. No gallops, murmurs, or rubs. Normal PMI, no JVD. No pulse deficits. Respiratory: Lungs have equal breath sounds bilaterally, clear to auscultation and percussion. No rales, rhonchi or wheezes noted. No increased work of breathing, no retractions or nasal flaring. Abdomen/GI: Soft, non-tender, with normal bowel sounds. No distension or tympany. No guarding or rebound. No evidence of tenderness throughout. Back: No spinal tenderness. No costovertebral tenderness. There is sacral decubitus ulcer that is covered by the wound VAC. Skin: Warm, dry with normal turgor. Normal color with no rashes, no lesions, and no evidence of cellulitis. MS/ Extremity: Pulses equal, no cyanosis. Neurovascular intact. Full, normal range of motion. Mild posterior left knee tenderness, no obvious swelling of the left lower extremity, overall legs appear symmetric without signs of DVT, normal distal peripheral pulses. No sign of extremity ischemia. No knee effusion Neuro: Awake and alert, GCS 15, oriented to person, place, time, and situation. Cranial nerves II-XII grossly intact. Motor strength 5/5 in all extremities. Sensory grossly intact. Psych: Awake, alert, with orientation to person, place and time. Behavior, mood, and affect are within normal limits Vital Signs: 05:29 BP 134 / 94; Pulse 87; Resp 17 S; Temp 98.2(O); Pulse Ox 100% on R/A; Weight 90.72 kg lg3 (R); Height 5 ft. 0 in. (R); Pain 2/10; 06:00 BP 125 / 83; Pulse 94; Resp 16; Pulse Ox 100% ; km8 07:20 BP 116 / 79; Pulse 78; Resp 16 S; Pulse Ox 98% on R/A; kc6 08:21 BP 106 / 74; Pulse 75; Resp 18 S; Pulse Ox 98% on R/A; kc6 05:29 Body Mass Index 39.06 (90.72 kg, 152.4 cm) lg3 05:29 Pain Scale: Adult lg3 Reece Coma Score: 05:45 Eye Response: spontaneous(4). Motor Response: obeys commands(6). Verbal Response: km8 oriented(5). Total: 15. MDM: 07:05 Differential Diagnosis altered mental status, sepsis, flu. Data reviewed: vital signs, sp4 nurses notes, radiologic studies, plain films, ultrasound. Transition of care: After a detail discussion of the patient's case, care is transferred to Cain Muniz MD. 07:48 Patient medically screened. [facility] 06/29 05:42 Order name: Test, Urine; Complete Time: 06:46 3 06/29 05:42 Order name: Extrem Venous W Compression Ivan US 3 06/29 06:46 Order name: Knee Left 3 View XRAY [facility] 06/29 08:13 Order name: Geovani wrap-joint; Complete Time: 08:21 devora Administered Medications: 08:21 Drug: Ibuprofen PO 600 mg PO once Route: PO; kc6 Disposition Summary: 06/29/23 07:57 Discharge Ordered Notes: Location: Home devora Problem: new devora Symptoms: have improved devora Condition: Stable devora Diagnosis - Pain in left leg devora - Pain in left lower leg devora - Pain in left knee devora Followup: devora - With: Private Physician - When: 2 - 3 days - Reason: Recheck today's complaints, Continuance of care, Re-evaluation by your physician Followup: devora - With: Anthony Camacho MD - When: 2 - 3 days - Reason: Recheck today's complaints, Re-evaluation by your physician Discharge Instructions: - Discharge Summary Sheet devora - Joint Pain devora - Knee Sprain, Adult devora - How to Use Cold Therapy, [id number]-bu-Gfjv devora - Knee Sprain, Adult, [id number]-[id number]-[id number] devora Forms: - Medication Reconciliation Form [facility] - Thank You Letter [facility] - Antibiotic Education devora - Prescription Opioid Use devora - Patient Portal Instructions [facility] - Leadership Thank You Letter [facility] Prescriptions: - acetaminophen-codeine 300-30 mg Oral tablet - take 2 tablet ORAL route every 6 hours as needed for pain; 20 tablet; Refills: devora 0, Product Selection Permitted - Ibuprofen 600 mg Oral Tablet - take 1 tablet ORAL route every 6 hours As needed take with food; 30 tablet; devora Refills: 0, Product Selection Permitted Signatures: Dispatcher [employer] Cain Garcia MD MD cha Able, Lacie, RN RN lg3 Audrey Golden RN RN kc6 Nilson Lester MD MD sp4
--- NOTE | 2023-06-29 07:58 | ER ---
Nurse's Notes [facility] Name: Ramiro Tracy Age: 33 yrs Sex: Female : 1990 Arrival Date: 06/29/2023 Time: 05:16 Bed 16 Private MD: Diagnosis: Pain in left leg;Pain in left lower leg;Pain in left knee Presentation: 06/29 05:29 Chief complaint: Patient states: pain in left calf radiating to posterior knee and lg3 thigh beginning 2 weeks ago. pain has decreased but still mildly present. swelling started in both lower extremities 1.5 weeks ago. right leg has subsided but left leg is worsening. Coronavirus screen: Client denies travel out of the [place] in the last 14 days. At this time, the client does not indicate any symptoms associated with coronavirus-19. Ebola Screen: No symptoms or risks identified at this time. Initial Sepsis Screen: Does the patient meet any 2 criteria? No. Patient's initial sepsis screen is negative. Does the patient have a suspected source of infection? No. Patient's initial sepsis screen is negative. Risk Assessment: Do you want to hurt yourself or someone else? Patient reports no desire to harm self or others. Onset of symptoms is unknown. 05:29 Method Of Arrival: Ambulatory lg3 05:29 Acuity: CASA 3 lg3 Triage Assessment: 05:32 General: Appears in no apparent distress. comfortable, Behavior is calm, cooperative. lg3 Pain: Complains of pain in posterior aspect of left knee Pain currently is 2 out of 10 on a pain scale. EENT: No deficits noted. No signs and/or symptoms were reported regarding the EENT system. Neuro: No deficits noted. Zelaya Agitation-Sedation Scale (RASS): 0 - Alert and Calm Level of Consciousness is awake, alert, obeys commands, Oriented to person, place, time, situation. Cardiovascular: No deficits noted. Denies chest pain, shortness of breath, Capillary refill < 3 seconds Clubbing of nail beds is absent JVD is absent Patient's skin is warm and dry. Respiratory: No deficits noted. Airway is patent Respiratory effort is even, unlabored, Respiratory pattern is regular, symmetrical. GI: No deficits noted. No signs and/or symptoms were reported involving the gastrointestinal system. Abdomen is round non-distended, obese. : No deficits noted. No signs and/or symptoms were reported regarding the genitourinary system. Derm: No deficits noted. Skin is intact, is healthy with good turgor, Skin is dry, Skin is normal, Skin temperature is warm. Musculoskeletal: No deficits noted. Circulation, motion, and sensation intact. Range of motion: intact in all extremities, Reports swelling to left leg. HEAD OF IT: 05:32 LMP 06/25/2023, unknown lg3 Historical: - Allergies: 05:32 No Known Allergies; lg3 - Home Meds: 05:32 None [Active]; lg3 - PMHx: 05:32 None; lg3 - PSHx: 05:32 Cholecystectomy; ; lg3 - Immunization history:: Adult Immunizations up to date, Client reports having NOT received the Covid vaccine. Flu vaccine is not up to date. - Social history:: Smoking status: Patient denies any tobacco usage or history of. Patient uses alcohol, occasionally. - Family history:: not pertinent. Screenin:45 [facility] Fall Risk Assessment (Adult) History of falling in the last 3 months, km8 including since admission No falls in past 3 months (0 pts) Confusion or Disorientation No (0 pts) Intoxicated or Sedated No (0 pts) Impaired Gait No (0 pts) Mobility Assist Device Used No (0 pt) Altered Elimination No (0 pt) Score/Fall Risk Level 0 - 2 = Low Risk Oriented to surroundings, Maintained a safe environment, Educated pt \T\ family on fall prevention, incl call for assistance when getting out of bed, Assessed \T\ reinforced patient's understanding of fall precautions. Abuse screen: Denies threats or abuse. Denies injuries from another. Nutritional screening: No deficits noted. Tuberculosis screening: No symptoms or risk factors identified. Assessment: 05:45 General: Appears in no apparent distress. comfortable, Behavior is calm, cooperative, km8 appropriate for age. Neuro: Level of Consciousness is awake, alert, obeys commands, Oriented to person, place, time, situation, Appropriate for age. Cardiovascular: Denies chest pain, shortness of breath, Capillary refill < 3 seconds Patient's skin is warm and dry. Respiratory: Airway is patent Respiratory effort is even, unlabored, Respiratory pattern is regular, symmetrical. GI: No signs and/or symptoms were reported involving the gastrointestinal system. : No signs and/or symptoms were reported regarding the genitourinary system. EENT: No signs and/or symptoms were reported regarding the EENT system. Derm: Skin is intact, is healthy with good turgor, Skin is dry, Skin is pink, warm \T\ dry. normal, Skin temperature is warm. Musculoskeletal: Circulation, motion, and sensation intact. Range of motion: intact in all extremities, Reports pain in left leg. 06:45 Reassessment: Patient appears in no apparent distress at this time. No changes from km8 previously documented assessment. Patient and/or family updated on plan of care and expected duration. Pain level reassessed. Patient is alert, oriented x 3, equal unlabored respirations, skin warm/dry/pink. 07:20 Reassessment: Patient appears in no apparent distress at this time. No changes from kc6 previously documented assessment. Patient and/or family updated on plan of care and expected duration. Pain level reassessed. Patient is alert, oriented x 3, equal unlabored respirations, skin warm/dry/pink. 08:21 Reassessment: Patient appears in no apparent distress at this time. No changes from kc6 previously documented assessment. Patient and/or family updated on plan of care and expected duration. Pain level reassessed. Patient is alert, oriented x 3, equal unlabored respirations, skin warm/dry/pink. Vital Signs: 05:29 BP 134 / 94; Pulse 87; Resp 17 S; Temp 98.2(O); Pulse Ox 100% on R/A; Weight 90.72 kg lg3 (R); Height 5 ft. 0 in. (R); Pain 2/10; 06:00 BP 125 / 83; Pulse 94; Resp 16; Pulse Ox 100% ; km8 07:20 BP 116 / 79; Pulse 78; Resp 16 S; Pulse Ox 98% on R/A; kc6 08:21 BP 106 / 74; Pulse 75; Resp 18 S; Pulse Ox 98% on R/A; kc6 05:29 Body Mass Index 39.06 (90.72 kg, 152.4 cm) lg3 05:29 Pain Scale: Adult lg3 Reece Coma Score: 05:45 Eye Response: spontaneous(4). Motor Response: obeys commands(6). Verbal Response: km8 oriented(5). Total: 15. ED Course: 05:22 Patient arrived in ED. gm2 05:32 Triage completed. lg3 05:32 Arm band placed on right wrist. lg3 05:42 Nilson Lester MD is Attending Physician. sp4 05:45 Patient has correct armband on for positive identification. Placed in gown. Bed in low km8 position. Call light in reach. Side rails up X 1. Pulse ox on. NIBP on. Warm blanket given. 05:45 No provider procedures requiring assistance completed. Patient maintains SpO2 km8 saturation greater than 95% on room air. 05:50 Cherry Mckinley, RN is Primary Nurse. km8 05:50 Test, Urine Sent. km8 06:31 Extrem Venous W Compression Ivan US In Process Unspecified. EDMS 07:01 Report received from Cherry Mckinley RN. kc6 07:03 Knee Left 3 View XRAY In Process Unspecified. EDMS 07:48 Attending Physician role handed off by Nilson Lester MD devora 07:48 Cain Muniz MD is Attending Physician. devora 08:13 Anthony Camacho MD is Referral Physician. devora 08:21 Patient did not have IV access during this emergency room visit. kc6 Administered Medications: 08:21 Drug: Ibuprofen PO 600 mg PO once Route: PO; kc6 Medication: 05:45 VIS not applicable for this client. km8 Outcome: 07:57 Discharge ordered by . devora 08:21 Discharged to home ambulatory, kc6 08:21 Condition: good 08:21 Discharge instructions given to patient, Instructed on discharge instructions, follow up and referral plans. medication usage, Demonstrated understanding of instructions, follow-up care, medications, Prescriptions given X 2, 08:21 Patient left the ED. kc6 Signatures: Dispatcher [employer] EDMS Cain Muniz MD MD cha Able, Lacie, RN RN lg3 Audrey Golden RN RN kcNilson Mauro MD MD sp4 Mitchell, Ginger 2 Cherry Mckinley, GABBY RN km8
--- NOTE | 2023-06-29 10:00 | RAD REPORT ---
EXAM DESCRIPTION: US - Extrem Venous W Compress Ivan - 06/29/2023 6:31 am CLINICAL HISTORY: SWELLING Bilateral leg edema and swelling. COMPARISON: <Comparisons> TECHNIQUE: Real-time sonographic interrogation of the left and right lower extremity deep venous sys tems was performed. FINDINGS: Normal compressibility, flow augmentation, phasic flow and spontaneous flow is identified in both the left and right lower extremity deep venous systems. IMPRESSION: No sonographic evidence of left or right lower extremity deep venous thrombosis.
--- NOTE | 2023-06-29 10:00 | RAD REPORT ---
EXAM DESCRIPTION: RAD - Knee Left 3 View - 06/29/2023 7:01 am CLINICAL HISTORY: PAIN COMPARISON: <Comparisons> FINDINGS: Mild medial compartment space narrowing. No fracture, dislocation or joint effusion.
== END ==
LOC: ER 05:16
DX: M79.605 Pain in left leg (principal); M79.662 Pain in left lower leg; M25.562 Pain in left knee
CPT/HCPCS: 81025; 93970; 99284

== ENCOUNTER 2024-03-30 22:30 | Emergency (ER) | payer BC ==
[2024-03-30] MEDS ORDERED: ASPIRIN 81 MG CHEWABLE TABLET ONE (22:53)
[2024-03-30 23:19] LABS: Absolute Eosinophils 0.1 K/uL (0-0.5); Absolute Lymphocytes (CBC) 2.2 K/uL (0.7-4.9); Absolute Monocytes 0.4 K/uL (0.1-1.3); Absolute Neutrophil 2.5 K/uL (1.8-8.0); Basophils % 0.7 % (0-1.3); Eosinophils % 2.1 % (0-4.4); Hemoglobin 13.8 g/dL (12.0-15.0); Lymphocytes % 42.7 % (15.3-44.8); MCH 34.4 pg (27.0-35.0); MCHC 34.4 g/dL (32.0-36.0); MPV 7.9 fL (7.6-11.3); Monocytes % 7.4 % (3.3-12.3); Neutrophils % 47.1 % (41.7-73.7); Nucleated Red Blood Cells % 0.2 % (0-0); Platelets 259 thou/uL (152-406); Red Cell Distribution Width 13.1 % (12.1-15.2)
[2024-03-30 23:26] LABS: D-Dimer 0.236 FEUug/mL (0-0.500); PT Prothrombin Time 10.8 SECONDS (9.4-12.5); Protime INR 0.96
[2024-03-30 23:29] LABS: ALT/SGPT 20 U/L (13-56); AST/SGOT 11 U/L (15-37); Albumin 3.6 g/dL (3.4-5.0); Albumin/Globulin Ratio 0.8 (1.1-1.8); Alkaline Phosphatase 73 U/L (45-117); Anion Gap 8.6 mEq/L (5.0-15.0); BUN Blood Urea Nitrogen 13 mg/dL (7-18); Bicarbonate 24 mEq/L (21-32); Bilirubin Total 0.3 mg/dL (0.2-1.0); Globulin 4.3 g/dL (2.3-3.5); Glomerular Filtration Rate 91 ml/min (=/>90); Glucose Level 100 mg/dL (74-106); Magnesium 2.1 mg/dL (1.6-2.4); NT PRO-BNP 40 pg/mL (<125); Potassium 3.6 mEq/L (3.5-5.1); Protein, Total 7.9 g/dL (6.4-8.2); Sodium Level 135 mEq/L (136-145)
[2024-03-30] MEDS ORDERED: NA CHLORIDE 0.9% 1,000 ML ONE (23:32)
[2024-03-30 23:41] LABS: Bilirubin Direct < 0.2 mg/dL (0-0.2); Bilirubin Indirect, Calculated 0.1 mg/dL (0.2-0.8); Troponin High Sensitivity < 3.0 pg/mL (<58.9)
[2024-03-31 01:03] LABS: SARS-CoV-2 Antigen CONTROL BLUE LINE VIS/BG OK; SARS-CoV-2 Antigen Rapid Res Negative (Negative)
--- NOTE | 2024-03-31 01:12 | ER ---
Nurse's Notes [facility] Name: Ramiro Tracy Age: 33 yrs Sex: Female : 1990 Arrival Date: 03/30/2024 Time: 22:30 Bed 6 Private MD: Diagnosis: Chest pain, unspecified Presentation: 03/30 22:44 Chief complaint: Patient states: Right sided chest pain times one week, worse with vc1 laying down and taking deep breaths. Coronavirus screen: Client denies travel out of the [place] in the last 14 days. At this time, the client does not indicate any symptoms associated with coronavirus-19. Ebola Screen: Patient negative for fever greater than or equal to 101.5 degrees Fahrenheit, and additional compatible Ebola Virus Disease symptoms Patient denies exposure to infectious person. Patient denies travel to an Ebola-affected area in the 21 days before illness onset. No symptoms or risks identified at this time. Initial Sepsis Screen: Does the patient meet any 2 criteria? HR > 90 bpm. No. Patient's initial sepsis screen is negative. Does the patient have a suspected source of infection? No. Patient's initial sepsis screen is negative. Risk Assessment: Do you want to hurt yourself or someone else? Patient reports no desire to harm self or others. Onset of symptoms is unknown. Care prior to arrival: None. Activity prior to arrival: None. Mechanism of Injury: No Mechanism of Injury. Transition of care: patient was not received from another setting of care. 22:44 Method Of Arrival: Ambulatory vc1 22:44 Acuity: CASA 3 vc1 Triage Assessment: 22:48 General: Appears in no apparent distress. uncomfortable, Behavior is cooperative, vc1 anxious. Pain: Complains of pain in anterior aspect of right upper chest Pain does not radiate. Pain currently is 3 out of 10 on a pain scale. Quality of pain is described as sharp, Pain began suddenly, approx 1 week ago Is intermittent, Aggravated by repositioning, deep breaths. EENT: No deficits noted. No signs and/or symptoms were reported regarding the EENT system. Neuro: Level of Consciousness is awake, alert, obeys commands, Oriented to person, place, time, situation, Appropriate for age. Cardiovascular: Capillary refill < 3 seconds Patient's skin is warm and dry. Chest pain is described as mild. Respiratory: Airway is patent Respiratory effort is even, unlabored, Respiratory pattern is regular, symmetrical, Denies shortness of breath. GI: No deficits noted. No signs and/or symptoms were reported involving the gastrointestinal system. : No deficits noted. No signs and/or symptoms were reported regarding the genitourinary system. Derm: Skin is intact, is healthy with good turgor, Skin is diaphoretic, Skin is normal, Skin temperature is warm. Musculoskeletal: No deficits noted. No signs and/or symptoms reported regarding the musculoskeletal system. 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 - Infectious Disease History:: Denies. - Social history:: Smoking status: Patient denies any tobacco usage or history of. Screenin:47 [facility] ED Fall Risk Assessment (Adult) History of falling in the last 3 months, vc1 including since admission No falls in past 3 months (0 pts) Confusion or Disorientation No (0 pts) Intoxicated or Sedated No (0 pts) Impaired Gait No (0 pts) Mobility Assist Device Used No (0 pt) Altered Elimination No (0 pt) Score/Fall Risk Level 0 - 2 = Low Risk Oriented to surroundings, Maintained a safe environment, Educated pt \T\ family on fall prevention, incl call for assistance when getting out of bed. Abuse screen: Denies threats or abuse. Nutritional screening: No deficits noted. Tuberculosis screening: No symptoms or risk factors identified. Assessment: 23:29 Reassessment: Patient appears in no apparent distress at this time. Patient and/or bm8 family updated on plan of care and expected duration. Pain level reassessed. Patient is alert, oriented x 3, equal unlabored respirations, skin warm/dry/pink. General: Appears in no apparent distress. comfortable, Behavior is calm, cooperative, appropriate for age. Pain: Complains of pain in chest and anterior aspect of right upper chest Pain currently is 4 out of 10 on a pain scale. Neuro: Level of Consciousness is awake, alert, obeys commands, Oriented to person, place, time, situation, Appropriate for age. Cardiovascular: Reports chest pain, Heart tones S1 S2 present Capillary refill < 3 seconds in bilateral fingers Patient's skin is warm and dry. Respiratory: Airway is patent Respiratory effort is even, unlabored, Respiratory pattern is regular, symmetrical. GI: No deficits noted. No signs and/or symptoms were reported involving the gastrointestinal system. : No deficits noted. No signs and/or symptoms were reported regarding the genitourinary system. EENT: No deficits noted. No signs and/or symptoms were reported regarding the EENT system. 03/31 01:21 Reassessment: Patient appears in no apparent distress at this time. Patient and/or bm8 family updated on plan of care and expected duration. Pain level reassessed. Patient is alert, oriented x 3, equal unlabored respirations, skin warm/dry/pink. Patient denies pain at this time. Patient states feeling better. Patient states symptoms have improved. Vital Signs: 03/30 22:44 BP 146 / 105; Pulse 107; Resp 20; Temp 99.8; Pulse Ox 100% ; Weight 90.72 kg; Height 5 vc1 ft. 4 in. ; Pain 3/10; 23:25 BP 131 / 80; sb4 23:43 BP 118 / 87; Pulse 99; Resp 17; Temp 99.6; Pulse Ox 100% ; Pain 4/10; bm8 03/31 01:21 BP 122 / 89; Pulse 94; Resp 17; Temp 98.9; Pulse Ox 98% ; Pain 0/10; bm8 03/30 22:44 Body Mass Index 34.33 (90.72 kg, 162.56 cm) vc1 03/30 22:44 Pain Scale: Adult vc1 23:43 Pain Scale: Adult bm8 03/31 01:21 Pain Scale: Adult bm8 Reece Coma Score: 03/30 23:29 Eye Response: spontaneous(4). Motor Response: obeys commands(6). Verbal Response: bm8 oriented(5). Total: 15. 23:43 Eye Response: spontaneous(4). Motor Response: obeys commands(6). Verbal Response: bm8 oriented(5). Total: 15. 03/31 01:21 Eye Response: spontaneous(4). Motor Response: obeys commands(6). Verbal Response: bm8 oriented(5). Total: 15. ED Course: 03/30 22:32 Patient arrived in ED. mr 22:33 Valeria Rodrigues PA-C [facility]. sb4 22:33 Cain Muniz MD is Attending Physician. sb4 22:36 Daquan Robertson, RN is Primary Nurse. bm8 22:47 Triage completed. vc1 22:47 Arm band placed on right wrist. vc1 22:49 Patient has correct armband on for positive identification. Placed in gown. Bed in low bm8 position. Call light in reach. Side rails up X 1. Client placed on continuous cardiac and pulse oximetry monitoring. NIBP monitoring applied. monitor worker on. Pulse ox on. NIBP on. Door closed. Noise minimized. Visitors limited. Warm blanket given. Pillow given. Verbal reassurance given. Head of bed elevated. 22:49 No provider procedures requiring assistance completed. Initial lab(s) drawn, by ma, bm8 sent to lab. EKG done, by ED staff, reviewed by Valeria Rodrigues PA-C. Inserted saline lock: 20 gauge in right antecubital area, using aseptic technique. Blood collected. Flushed with 10 mL NS. Response to oxygen therapy: symptoms improved. 23:02 XRAY Chest (1 view) In Process Unspecified. EDMS 03/31 01:22 Provided Education on: post er care. bm8 01:22 Patient did not have IV access during this emergency room visit. bm8 Administered Medications: 03/30 23:18 Drug: Aspirin PO Chewable Tablet 324 mg PO once; 81 mg tablets x 4 Route: PO; lg3 03/31 01:22 Follow up: Response: No adverse reaction bm8 03/30 23:33 Drug: NS 0.9% IV 1000 ml IV at 1 bolus Per protocol; to be given as a bolus over 60 bm8 minutes Route: IV; Rate: 1 bolus; Site: right antecubital; 03/31 01:22 Follow up: Response: No adverse reaction; IV Status: Completed infusion; IV Intake: bm8 1000ml Medication: 03/30 22:49 VIS not applicable for this client. bm8 Intake: 03/31 01:22 IV: 1000ml; Total: 1000ml. bm8 Outcome: 01:12 Discharge ordered by . sb4 01:22 Discharged to home ambulatory, bm8 01:22 Condition: stable 01:22 Discharge instructions given to patient, Instructed on discharge instructions, follow up and referral plans. no drinking with medication, no driving heavy equipment, medication usage, safety practices, Demonstrated understanding of instructions, follow-up care, medications, Prescriptions given X :23 Patient left the ED. bm8 Signatures: Dispatcher [employer] EDOH Tawny Pinto, Nilay Reg mr David, Savana, RN RN lg3 Judi Núñez RN RN vc1 Valeria Rodrigues, PA-C PA-C sb4 Daquan Robertson, RN RN bm8
--- NOTE | 2024-03-31 01:13 | EDPHYS ---
Physician Documentation [facility] Name: Ramiro Tracy Age: 33 yrs Sex: Female : 1990 Arrival Date: 03/30/2024 Time: 22:30 Bed 6 Private MD: ED Physician Cain Muniz HPI: 03/30 22:53 This 33 yrs old Female presents to ER via Ambulatory with complaints of Chest sb4 Pain. 22:53 The patient or guardian reports chest pain that is located primarily in the anterior sb4 aspect of right upper chest. The pain does not radiate. Associated signs and symptoms: The patient has no apparent associated signs or symptoms. The chest pain is described as sharp. Duration: The patient or guardian reports multiple episodes. Modifying factors: The symptoms are alleviated by nothing. the symptoms are aggravated by deep breath, movement. The patient has experienced a previous episode, many years ago. The patient has not recently seen a physician. SANDBLASTER STONE: 22:51 LMP 02/24/2024, unknown vc1 Historical: - Allergies: 22:47 No Known Allergies; vc1 - Home Meds: 22:47 None [Active]; vc1 - PMHx: 22:47 None; vc1 - PSHx: 22:47 Cholecystectomy; ; vc1 - Immunization history:: Adult Immunizations up to date. - Infectious Disease History:: Denies. - Social history:: Smoking status: Patient denies any tobacco usage or history of. ROS: 22:54 Constitutional: Negative for fever, chills, and weight loss, sb4 22:54 Cardiovascular: Positive for chest pain, 22:54 All other systems are negative, Exam: 22:54 Constitutional: This is a well developed, well nourished patient who is awake, alert, sb4 and in no acute distress. Head/Face: Normocephalic, atraumatic. Eyes: Extra-ocular motions intact. Periorbital areas with no swelling, redness, or edema. ENT: Mucous membranes moist. Respiratory: Lungs have equal breath sounds bilaterally, clear to auscultation and percussion. No rales, rhonchi or wheezes noted. No increased work of breathing, no retractions or nasal flaring. Abdomen/GI: Soft, non-tender, no distension. Skin: Warm, dry with normal turgor. Normal color with no rashes, no lesions, and no evidence of cellulitis. 22:54 Cardiovascular: Rate: tachycardic, Rhythm: regular, Vital Signs: 22:44 BP 146 / 105; Pulse 107; Resp 20; Temp 99.8; Pulse Ox 100% ; Weight 90.72 kg; Height 5 vc1 ft. 4 in. ; Pain 3/10; 23:25 BP 131 / 80; sb4 23:43 BP 118 / 87; Pulse 99; Resp 17; Temp 99.6; Pulse Ox 100% ; Pain 4/10; bm8 03/31 01:21 BP 122 / 89; Pulse 94; Resp 17; Temp 98.9; Pulse Ox 98% ; Pain 0/10; bm8 03/30 22:44 Body Mass Index 34.33 (90.72 kg, 162.56 cm) vc1 03/30 22:44 Pain Scale: Adult vc1 23:43 Pain Scale: Adult bm8 03/31 01:21 Pain Scale: Adult bm8 Reece Coma Score: 03/30 23:29 Eye Response: spontaneous(4). Motor Response: obeys commands(6). Verbal Response: bm8 oriented(5). Total: 15. 23:43 Eye Response: spontaneous(4). Motor Response: obeys commands(6). Verbal Response: bm8 oriented(5). Total: 15. 03/31 01:21 Eye Response: spontaneous(4). Motor Response: obeys commands(6). Verbal Response: bm8 oriented(5). Total: 15. MDM: 03/30 22:33 Medical Screening Exam initiated sb4 23:42 Scoring Tools HEART Score: History: ECG: Age: Risk Factors: 1 or 2 risk factors (1), sb4 Troponin: Total Score = 1. Counseling: I had a detailed discussion with the patient and/or guardian regarding the historical points, exam findings, and any diagnostic results supporting the discharge/admit diagnosis, lab results, radiology results, to return to the emergency department if symptoms worsen or persist or if there are any questions or concerns that arise at home. Special discussion: Based on the patient's history, exam, and Dx evaluation, there is no indication for emergent intervention or inpatient Tx. It is understood by the patient/guardian that if the Sx's persist or worsen they need to return immediately for re-evaluation. 03/31 00:31 Data reviewed: vital signs, nurses notes, lab test result(s), EKG, radiologic studies, sb4 and as a result, I will discharge patient. Consideration of Admission/Observation Escalation of care including admission/observation considered. 03/30 22:47 Order name: Basic Metabolic Panel; Complete Time: 23:41 sb4 03/30 22:47 Order name: CBC with Diff; Complete Time: 23:24 sb4 03/30 22:47 Order name: D-Dimer; Complete Time: 23:28 sb4 03/30 22:47 Order name: LFT's; Complete Time: 23:41 sb4 03/30 22:47 Order name: Magnesium; Complete Time: 23:41 sb4 03/30 22:47 Order name: NT PRO-BNP; Complete Time: 23:41 sb4 03/30 22:47 Order name: PT-INR; Complete Time: 23:28 sb4 03/30 22:47 Order name: Troponin HS; Complete Time: 23:41 sb4 03/30 23:57 Order name: SARS RAPID; Complete Time: 01:04 sb4 03/30 23:57 Order name: Flu; Complete Time: 01:09 sb4 03/30 22:47 Order name: XRAY Chest (1 view) sb4 03/30 22:47 Order name: Cardiac monitoring; Complete Time: 22:50 sb4 03/30 22:47 Order name: EKG - Nurse/Tech; Complete Time: 22:50 sb4 03/30 22:47 Order name: IV Saline Lock; Complete Time: 22:50 sb4 03/30 22:47 Order name: Labs collected and sent; Complete Time: 22:50 sb4 03/30 22:47 Order name: O2 Per Protocol; Complete Time: 22:50 sb4 03/30 22:47 Order name: O2 Sat Monitoring; Complete Time: 22:50 sb4 EC/14 22:45 Rate is 103 beats/min. Rhythm is regular, Sinus tachycardia. VT interval is normal at sb4 170 msec. QRS interval is normal at 72 msec. QT interval is normal at 344 msec. No Q waves. T waves are Normal. No ST changes noted. Clinical impression: Sinus tachycardia. Interpreted by me. Reviewed by me. Administered Medications: 23:18 Drug: Aspirin PO Chewable Tablet 324 mg PO once; 81 mg tablets x 4 Route: PO; lg3 03/31 01:22 Follow up: Response: No adverse reaction bm8 03/30 23:33 Drug: NS 0.9% IV 1000 ml IV at 1 bolus Per protocol; to be given as a bolus over 60 bm8 minutes Route: IV; Rate: 1 bolus; Site: right antecubital; 03/31 01:22 Follow up: Response: No adverse reaction; IV Status: Completed infusion; IV Intake: bm8 1000ml Disposition Summary: 03/31/24 01:12 Discharge Ordered Notes: Location: Home sb4 Problem: new sb4 Symptoms: have improved sb4 Condition: Stable sb4 Diagnosis - Chest pain, unspecified sb4 Followup: sb4 - With: Emergency Department - When: As needed - Reason: Worsening of condition Discharge Instructions: - Discharge Summary Sheet sb4 - Nonspecific Chest Pain, Adult, [id number] sb4 Forms: - Patient Portal Instructions sb4 - Leadership Thank You Letter sb4 Prescriptions: - ketorolac 10 mg Oral tablet - take 1 tablet ORAL route every 4 to 6 hours as needed for pain; do not exceed 4 sb4 doses per 24 hours; maximum total duration of 5 days; 12 tablet; Refills: 0, Product Selection Permitted Signatures: Dispatcher [employer] Savana Clemens, RN RN lg3 Judi Núñez RN RN vc1 Valeria Rodrigues PA-C PAGordon sb4 Daquan Robertson RN RN bm8 Corrections: (The following items were deleted from the chart) 03/30 22:47 22:47 BASIC METABOLIC PANEL+C.LAB.BRZ ordered. EDMS EDMS 22:47 22:47 CBC+H.LAB.BRZ ordered. EDMS EDMS 22:47 22:47 D-DIMER+COAG.LAB.BRZ ordered. EDMS EDMS 22:47 22:47 HEPATIC FUNCTION+C.LAB.BRZ ordered. EDMS EDMS 22:47 22:47 MAGNESIUM+C.LAB.BRZ ordered. EDMS EDMS 22:47 22:47 PROBNP+C.LAB.BRZ ordered. EDMS EDMS 22:47 22:47 PROTIME (+INR)+COAG.LAB.BRZ ordered. EDMS EDMS 22:47 22:47 Troponin High Sensitivity+C.LAB.BRZ ordered. EDMS EDMS 22:47 Chest Single View+RAD.RAD.BRZ ordered. EDMS EDMS : 23:57 SARS-COV-2 Antigen Rapid+I.LAB.BRZ ordered. EDMS EDMS :57 23:57 Influenza Screen (A \T\ B)+BA.LAB.BRZ ordered. EDMS EDMS
--- NOTE | 2024-03-31 06:16 | RAD REPORT ---
EXAM DESCRIPTION: Chest Single View 03/30/2024 11:46 PM CDT CLINICAL HISTORY: 33 years, Female, CHEST PAIN COMPARISON: None FINDINGS: 1 views of the chest (AP portable projection) was obtained. No prior films are available at this ti dc for comparison. There is normal lung volume. Mediastinum: The cardiomediastinal silhouette appears normal in size and shape. Lungs: No areas of consolidations or masses are identified. Heart: The heart is normal in size. Thoracic aorta: The thoracic aorta demonstrate to be normal. Pulmonary vasculature: The pulmonary vasculature is normal in distribution. Pleura: The costophrenic angles demonstrate to be sharp. Osseous structures: The bony structures demonstrate to be within normal limits. Other: External EKG leads within the [id number] limits diagnosis. IMPRESSION: No acute cardiopulmonary disease is seen Electronically signed by: Ronnie Baker MD 03/30/2024 11:54 PM CDT RP Due to temporary technical issues with the PACS/[facility] reporting system, reports are being rashi d by the in-house radiologist without review as a courtesy to ensure prompt reporting the interpreting radiologist is fully responsible for the content of the report. Transcribed Date/Time: 03/31/2024 6:16 AM
[2024-03-31 06:57] VITALS: BP 122/89; TEMP 98.9; O2SAT 98
--- NOTE | 2024-04-02 12:01 | EKG ---
Test Date: 2024-03-30 Test Time: 22:40:01 A/C Tech: LUIS ENRIQUE MEASUREMENT RESULTS: Intervals: Rate: 103 [place]: 170 QRSD: 72 QT: 344 QTc: 450 [place]: P: 38 NJ: 170 QRS: 17 T: 27 INTERPRETIVE STATEMENTS: Sinus tachycardia Nonspecific T wave abnormality Abnormal ECG No previous ECG available for comparison Electronically Signed On 04-02-24 11:54:10 CDT by Johnny Serrano
== END 2024-03-31 01:23 | disposition home or self-care (01) ==
LOC: ER 22:30
DX: R07.9 Chest pain, unspecified (principal); Z11.52 Encounter for screening for COVID-19
CPT/HCPCS: 93005; 85025; 80048; 36415; 83735; 85610; 85379; 80076; 84484; 83880; 87804 ×2; 71045; 87811; J7030; 96360; 96361; 99285